=== PATIENT | female | born 1955 | race Caucasian/White ===

== ENCOUNTER 2016-07-27 11:11 | Inpatient (IN) | payer MEDICARE ==
[~2016-07-27] VITALS: Ht 154.9 cm; Wt 61.0 kg
[~2016-07-27 11:11] MED LIST: FLUT1SPR9 EACH NARE; LEVA500T PO; MAXI5O EACH EYE
[2016-07-27 11:22] VITALS: BP 161/102; PULSE 112; RESP 21; TEMP 98.8
[2016-07-27] MEDS ORDERED: SODIUM CHLOR 0.9% 1000 ML INJ 1,000 ML IV ONE ×2 (12:00)
--- NOTE | 2016-07-27 12:08 | RADRPT ---
EXAM DATE/TIME: 07/27/2016 12:01 [facility] COMPARISON: No previous studies available for comparison. INDICATIONS : Cough. MEDICAL HISTORY : None. SURGICAL HISTORY : None. ENCOUNTER: Initial ACUITY: 2 days PAIN SCORE: 0/10 LOCATION: Bilateral chest FINDINGS: A single view of the chest demonstrates the lungs to be symmetrically aerated without evidence of mas s, infiltrate or effusion. The cardiomediastinal contours are unremarkable. Osseous structures are intact. CONCLUSION: No acute pulmonary infiltrates. Talha Jaquez MD on July 27, 2016 at 12:07 Board Certified Radiologist. This report was verified electronically.
[2016-07-27 12:21] LABS: AUTOMATED NEUTROPHIL # 15.4 TH/MM3 (1.8-7.7); BASOPHIL # 0.1 TH/MM3 (0-0.2); BASOPHIL % 0.5 % (0.0-2.0); EOSINOPHIL # 0.1 TH/MM3 (0-0.4); EOSINOPHIL % 0.4 % (0.0-4.0); HEMATOCRIT 37.1 % (35.0-46.0); HEMO FLAGS DIFF FINAL; LYMPH % 5.3 % (9.0-44.0); LYMPHOCYTE # 0.9 TH/MM3 (1.0-4.8); MEAN CELL VOLUME 87.5 FL (80.0-100.0); MEAN CORPUSCULAR HEMOGLOBIN 29.1 PG (27.0-34.0); MEAN CORPUSCULAR HGB CONC 33.3 % (32.0-36.0); MONO % 4.7 % (0.0-8.0); NEUT % 89.1 % (16.0-70.0); PLATELET COUNT 323 TH/MM3 (150-450); RED BLOOD COUNT 4.24 MIL/MM3 (4.00-5.30); RED CELL DISTRIBUTION WIDTH 14.5 % (11.6-17.2); WHITE BLOOD COUNT 17.2 TH/MM3 (4.0-11.0)
[2016-07-27 12:25] VITALS: O2SAT 98
[2016-07-27 12:57] LABS: ALKALINE PHOSPHATASE 96 U/L (45-117); ALT (GPT) 12 U/L (10-53); ANION GAP 11 MEQ/L (5-15); AST (GOT) 18 U/L (15-37); BICARBONATE 26.2 MEQ/L (21.0-32.0); BLOOD UREA NITROGEN 11 MG/DL (7-18); CHLORIDE 103 MEQ/L (98-107); GLOMERULAR FILTRATION RATE 58 ML/MIN (>89); SODIUM (NA) 140 MEQ/L (136-145); TOTAL BILIRUBIN ADULT 0.4 MG/DL (0.2-1.0)
[2016-07-27 13:10] LABS: BLOOD, URINE TRACE (NEG); COMMENT (UR) CATH-CULT NOT IND; CULTURE IF INDICATED CATH CULTURE NOT IND; GLUCOSE,URINE NEG (NEG); KETONE, URINE NEG (NEG); NITRITE,URINE NEG (NEG); SQUAMOUS EPITHELIAL CELL URINE <1 /hpf (0-5); URINE COLOR LIGHT-YELLOW (YELLW/STRAW)
[2016-07-27 14:00] VITALS: BP 170/100; PULSE 110; RESP 19; O2SAT 93
[2016-07-27] MEDS ORDERED: CLINDAMYCIN INJ 600 MG in SODIUM CHLORIDE 0.9% INJ 100 ML IV ONE (14:00)
--- NOTE | 2016-07-27 14:34 | PD ---
HPI Chief Complaint: General Weakness Time Seen by Provider: 11:32 Travel History International Travel<30 days: No Contact w/Intl Traveler<30days: No Traveled to known affect area: No History of Present Illness HPI 60 year-old woman presents from [facility] for reportedly Gen. weakness. According to EMS her roommate found the patient weak, having urinated on herself. Patient states she occasionally gets "talking seizures" where she feels funny but then is able to talk and feels better. Patient has schizophrenia and is unable to provide complete history. She does state that she had an ingrown toe on her left foot but she does not get out of its been not hurting her as much. Denies any other complaints. History Past Medical History Narrative Medical From review of medication list Seizures Hypothyroidism COPD Schizophrenia Social History Alcohol Use: No Tobacco Use: Yes (PACK A DAY ) Allergies-Medications (Allergen,Severity, Reaction): Coded Allergies: Penicillin (Verified Allergy, Severe, 06/25/16) Sulfa (Verified Allergy, Intermediate, 06/25/16) Reported Meds & Prescriptions Reported Meds & Active Scripts Active Maxitrol Opth Drops (Neomycin/Polymyxin/Dexamethasone) 3.5-10,000-0.1 Mg-Units- % Susp 1 Drop EACH EYE Q4H Levaquin (Levofloxacin) 500 Mg Tab 500 Mg PO DAILY Flonase Allergy Relief Children Nasal [place] (Fluticasone Nasal [place]) 50 Mcg/ Act [place] 2 [place] EACH NARE DAILY 50 mcg/spray Review of Systems ROS Limitations: Clinical Condition Physical Exam Narrative GENERAL: Bizarre 60 year-old woman, no acute distress. SKIN: Warm and dry. HEAD: Atraumatic. Normocephalic. CARDIOVASCULAR: Regular rate and rhythm. No murmur appreciated. RESPIRATORY: No accessory muscle use. Clear to auscultation. Breath sounds equal bilaterally. GASTROINTESTINAL: Abdomen soft, non-tender, nondistended. Hepatic and splenic margins not palpable. MUSCULOSKELETAL: No obvious deformities. No edema. Left great toe with ingrown toenail with erythema redness and some purulence on the lateral aspect. NEUROLOGICAL: Awake and alert. No obvious cranial nerve deficits. Motor grossly within normal limits. Normal speech. PSYCHIATRIC: Bizarre, thoughts. Disordered. Data Data Last Documented VS Vital Signs Date Time Temp Pulse Resp B/P Pulse Ox O2 Delivery O2 Flow Rate FiO2 1/31/17 12:25 98 Nasal Cannula 2 07/27/16 11:22 98.8 112 21 161/102 Orders Electrocardiogram (07/27/16 11:48) Complete Blood Count With Diff (07/27/16 11:48) Comprehensive Metabolic Panel (07/27/16 11:48) Lactic Acid Sepsis Protocol (07/27/16 11:48) Lipase (07/27/16 11:48) Troponin I (07/27/16 11:48) Urinalysis - C+S If Indicated (07/27/16 11:48) Influenzae A/B Antigen (07/27/16 11:48) Blood Culture (07/27/16 11:48) Chest, Single Ap (07/27/16 11:48) Blood Glucose (07/27/16 11:48) Ecg Monitoring (07/27/16 11:48) Iv Access Insert/Monitor (07/27/16 11:48) Cath For Specimen (07/27/16 11:48) Oximetry (07/27/16 11:48) Oxygen Administration (07/27/16 11:48) Sodium Chlor 0.9% 1000 Ml Inj (Ns 1000 M (07/27/16 12:00) Sodium Chlor 0.9% 1000 Ml Inj (Ns 1000 M (07/27/16 12:00) Clindamycin Inj (Cleocin Inj) (07/27/16 14:00) Admit Order (Ed Use Only) (07/27/16 ) Labs Laboratory Tests Test 07/27/16 07/27/16 11:50 12:45 White Blood Count 17.2 TH/MM3 Red Blood Count 4.24 MIL/MM3 Hemoglobin 12.3 GM/DL Hematocrit 37.1 % Mean Corpuscular Volume 87.5 FL Mean Corpuscular Hemoglobin 29.1 PG Mean Corpuscular Hemoglobin 33.3 % Concent Red Cell Distribution Width 14.5 % Platelet Count 323 TH/MM3 Mean Platelet Volume 8.0 FL Neutrophils (%) (Auto) 89.1 % Lymphocytes (%) (Auto) 5.3 % Monocytes (%) (Auto) 4.7 % Eosinophils (%) (Auto) 0.4 % Basophils (%) (Auto) 0.5 % Neutrophils # (Auto) 15.4 TH/MM3 Lymphocytes # (Auto) 0.9 TH/MM3 Monocytes # (Auto) 0.8 TH/MM3 Eosinophils # (Auto) 0.1 TH/MM3 Basophils # (Auto) 0.1 TH/MM3 CBC Comment DIFF FINAL Differential Comment Sodium Level 140 MEQ/L Potassium Level 3.0 MEQ/L Chloride Level 103 MEQ/L Carbon Dioxide Level 26.2 MEQ/L Anion Gap 11 MEQ/L Blood Urea Nitrogen 11 MG/DL Creatinine 0.99 MG/DL Estimat Glomerular Filtration 58 ML/MIN Rate Random Glucose 100 MG/DL Lactic Acid Level 0.8 mmol/L Calcium Level 9.5 MG/DL Total Bilirubin 0.4 MG/DL Aspartate Amino Transf 18 U/L (AST/SGOT) Alanine Aminotransferase 12 U/L (ALT/SGPT) Alkaline Phosphatase 96 U/L Troponin I LESS THAN 0.02 NG/ML Total Protein 7.0 GM/DL Albumin 3.0 GM/DL Lipase 63 U/L Urine Color LIGHT-YELLOW Urine Turbidity CLEAR Urine pH 7.0 Urine Specific [place] 1.006 Urine Protein NEG mg/dL Urine Glucose (UA) NEG mg/dL Urine Ketones NEG mg/dL Urine Occult Blood TRACE Urine Nitrite NEG Urine Bilirubin NEG Urine Urobilinogen LESS THAN 2.0 MG/DL Urine Leukocyte Esterase NEG Urine RBC 5 /hpf Urine WBC 1 /hpf Urine Squamous Epithelial <1 /hpf Cells Microscopic Urinalysis Comment CATH-CULT NOT IND MDM Medical Decision Making Medical Screen Exam Complete: Yes Emergency Medical Condition: Yes Interpretation(s) LABS: CBC remarkable for mild leukocytosis. CMP generally unremarkable. Troponin negative Lipase normal Lactate normal Influenza negative Chest x-ray negative Differential Diagnosis Infection, seizure, adverse medication reaction, anemia, other Narrative Course Medical decision making 60 year-old woman presents from [facility] under very unclear circumstances , seems to be generally weak, possibly had a seizure, appears to have an infection with low-grade fevers tachycardia. No clear source of infection is seen other than this ingrown toenail. We'll cover her with antibiotics, IV fluids, plan on admission for observation. Diagnosis Primary Impression: Sepsis Qualified Code: A41.9 - Sepsis, due to unspecified organism Additional Impressions: Ingrown toenail Weakness Mikey Suero MD Jul 27, 2016 14:33
[2016-07-27] MEDS ORDERED: VITATAB56 PO (14:51)
[2016-07-27] MEDS ORDERED: CLOZ200T PO (14:51)
[2016-07-27] MEDS ORDERED: GABA100C4 PO (14:51)
[2016-07-27] MEDS ORDERED: KEPP10002 PO (14:51)
[2016-07-27] MEDS ORDERED: LEVO75TA3 PO (14:51)
[2016-07-27] MEDS ORDERED: SYMB160A INH (14:51)
[2016-07-27] MEDS ORDERED: CLOZ100T3 PO (14:51)
[2016-07-27] MEDS ORDERED: LACT10SO PO (14:51)
[2016-07-27] MEDS ORDERED: OMEP20TA PO (14:51)
[2016-07-27] MEDS ORDERED: BENZ1TAB PO (14:55)
[2016-07-27] MEDS ORDERED: TRIF2TAB PO (14:55)
[2016-07-27] MEDS ORDERED: COLA100C3 PO (14:59)
[2016-07-27] MEDS ORDERED: SODIUM CHLOR 0.9% 1000 ML INJ 1,000 ML IV SCH (16:34)
[2016-07-27] MEDS ORDERED: SODIUM CHLORIDE 0.9% FLUSH 5 ML FLUSH FLUSH PRN (16:45)
[2016-07-27] MEDS ORDERED: NALOXONE HCL 0.4 MG/ML AMP IV PRN (16:45)
[2016-07-27] MEDS ORDERED: SENNOSIDES 8.6 MG TAB PO PRN (16:45)
[2016-07-27] MEDS ORDERED: POTASSIUM CHLORIDE 25 MEQ EFFERVESCENT TAB PO ONE (16:45)
[2016-07-27 17:00] VITALS: BP 181/103; PULSE 105; RESP 19; O2SAT 92
--- NOTE | 2016-07-27 17:00 | HHI.HP ---
[facility] Unknown Admission Diagnosis sepsis, toe infection, weakness Diagnoses: Chief Complaint: Toe infection Travel History International Travel<30 Days: No Contact w/Intl Traveler <30 Da: No Traveled to Known Affected Are: No History of Present Illness The patient is a 60-year-old female with past medical history of schizophrenia who is presenting to the hospital from [facility]. The patient does not speak coherently all the time so a targeted history is difficult. She does admit she has had an ingrown toenail on her left foot at the big toe. She said the manager functional did come to her facility and did do something with it. She says the toe persistently bothers her. The patient has no other specific complaints. She was found to have an area of infection in her left great toe. She received a dose of clindamycin in the emergency department. She wanted IVs removed. She was having trouble taking off her gown. Review of Systems ROS Limitations: Clinical Condition, Altered Mental Status, Psychotic, Poor Historian Past Family Social History Past Medical History Seizures Hypothyroidism COPD Schizophrenia Allergies: Coded Allergies: Penicillin (Verified Allergy, Severe, 06/25/16) Sulfa (Verified Allergy, Intermediate, 06/25/16) Family History Unable to obtain. Social History Unable to obtain. Physical Exam Vital Signs Vital Signs Date Time Temp Pulse Resp B/P Pulse Ox O2 Delivery O2 Flow Rate FiO2 07/27/16 12:25 98 Nasal Cannula 2 07/27/16 12:25 98 2 07/27/16 11:42 98 Nasal Cannula 2 07/27/16 11:22 98.8 112 21 161/102 Physical Exam GENERAL: No acute distress. SKIN: Warm and dry. HEAD: Atraumatic. Normocephalic. CARDIOVASCULAR: Regular rate and rhythm. No murmur appreciated. RESPIRATORY: No accessory muscle use. Clear to auscultation. Breath sounds equal bilaterally. GASTROINTESTINAL: Abdomen soft, non-tender, nondistended. Hepatic and splenic margins not palpable. MUSCULOSKELETAL: No obvious deformities. No edema. Left great toe with ingrown toenail with erythema redness and some purulence on the lateral aspect. NEUROLOGICAL: Awake and alert. No obvious cranial nerve deficits. Motor grossly within normal limits. Normal speech. PSYCHIATRIC: Disordered speech. Laboratory Laboratory Tests Test 07/27/16 07/27/16 11:50 12:45 White Blood Count 17.2 Red Blood Count 4.24 Hemoglobin 12.3 Hematocrit 37.1 Mean Corpuscular Volume 87.5 Mean Corpuscular Hemoglobin 29.1 Mean Corpuscular Hemoglobin 33.3 Concent Red Cell Distribution Width 14.5 Platelet Count 323 Mean Platelet Volume 8.0 Neutrophils (%) (Auto) 89.1 Lymphocytes (%) (Auto) 5.3 Monocytes (%) (Auto) 4.7 Eosinophils (%) (Auto) 0.4 Basophils (%) (Auto) 0.5 Neutrophils # (Auto) 15.4 Lymphocytes # (Auto) 0.9 Monocytes # (Auto) 0.8 Eosinophils # (Auto) 0.1 Basophils # (Auto) 0.1 CBC Comment DIFF FINAL Differential Comment Sodium Level 140 Potassium Level 3.0 Chloride Level 103 Carbon Dioxide Level 26.2 Anion Gap 11 Blood Urea Nitrogen 11 Creatinine 0.99 Estimat Glomerular Filtration 58 Rate Random Glucose 100 Lactic Acid Level 0.8 Calcium Level 9.5 Total Bilirubin 0.4 Aspartate Amino Transf 18 (AST/SGOT) Alanine Aminotransferase 12 (ALT/SGPT) Alkaline Phosphatase 96 Troponin I LESS THAN 0.02 Total Protein 7.0 Albumin 3.0 Lipase 63 Urine Color LIGHT-YELLOW Urine Turbidity CLEAR Urine pH 7.0 Urine Specific [place] 1.006 Urine Protein NEG Urine Glucose (UA) NEG Urine Ketones NEG Urine Occult Blood TRACE Urine Nitrite NEG Urine Bilirubin NEG Urine Urobilinogen LESS THAN 2.0 Urine Leukocyte Esterase NEG Urine RBC 5 Urine WBC 1 Urine Squamous Epithelial <1 Cells Microscopic Urinalysis Comment CATH-CULT NOT IND Date/Time Procedure Status Source Growth 07/27/16 12:45 Influenza Types A,B Antigen (YASMINE) - Final Complete Nasal Washing NEGATIVE FOR FLU A AND B ANTIGEN.... 07/27/16 11:55 Aerobic Blood Culture Received Blood Peripheral Pending 07/27/16 11:55 Anaerobic Blood Culture Received Blood Peripheral Pending Result Diagram: 07/27/16 1150 07/27/16 1150 Imaging Last Impressions Chest X-Ray 07/27/16 1148 Signed Impressions: Service Date/Time: Wednesday, July 27, 2016 12:01 - CONCLUSION: No acute pulmonary infiltrates. Talha Jaquez MD Assessment and Plan Assessment and Plan Sepsis S/t toe infection/ cellulitis. The pt had an ingrown toenail in her left toe. S/ p Clindamycin. - continue clindamycin. - wound and blood cultures. - IVFs. - podiatry consult if needed. Weakness There was concern for generalized weakness. - treatment as above. - PT/ OT. Hypokalemia Possibly secondary to decreased by mouth intake. - Replete and monitor. Hypertension May be exacerbated by pain. - Vasotec as needed. - pain control. Schizophrenia The patient has pressured speech and is difficult to understand. - Continue psych medication regimen. - Psych consult if needed. PPx: Lovenox. Discussed Condition With Dr. Suero, pt, nurse. Physician Certification 2 Midnight Certification Type: Admission for Inpatient Services Order for Inpatient Services The services are ordered in accordance with Medicare regulations or non- Medicare payer requirements, as applicable. In the case of services not specified as inpatient-only, they are appropriately provided as inpatient services in accordance with the 2-midnight benchmark. Estimated LOS (days): 2 days is the estimated time the patient will need to remain in the hospital, assuming treatment plan goals are met and no additional complications. Post-Hospital Plan: SNF Jose Miguel Burrell DO Jul 27, 2016 17:00
[2016-07-27] MEDS: GABAPENTIN 100 MG CAP PO SCH (17:23)
[2016-07-27] MEDS: DOCUSATE SODIUM 100 MG CAP PO SCH (17:23)
[2016-07-27] MEDS: NS + KCL 40 MEQ INJ 1,000 ML IV SCH (17:24)
[2016-07-27] MEDS: ENALAPRILAT 1.25 MG/ML VIAL IV PUSH PRN (17:24)
[2016-07-27] MEDS: ENOXAPARIN SODIUM 30 MG/0.3 ML SYRINGE SQ SCH (17:24)
[2016-07-27 19:00] VITALS: BP 154/88; PULSE 96; RESP 18; O2SAT 95
[2016-07-27 20:31] VITALS: BP 147/79; PULSE 98; RESP 17; TEMP 101.8; O2SAT 94
[2016-07-27] MEDS: ACETAMINOPHEN 325 MG TAB PO PRN (20:32)
[2016-07-27] MEDS ORDERED: TRIFLUOPERAZINE 2 MG PO SCH (21:00)
[2016-07-27] MEDS ORDERED: DOCUSATE SODIUM 100 MG CAP PO SCH (21:00)
[2016-07-27] MEDS: SODIUM CHLORIDE 0.9% FLUSH 5 ML FLUSH FLUSH SCH (21:00)
[2016-07-27] MEDS: levETIRAcetam 500 MG TAB PO SCH (23:55)
[2016-07-27] MEDS: BUDESONIDE-FORMOTEROL 160/4.5 MCG INHALER INH SCH (23:55)
[2016-07-27] MEDS: BENZTROPINE MESYLATE 1 MG TAB PO SCH (23:56)
[2016-07-27] MEDS: cloZAPine 100 MG TAB PO SCH (23:56)
[2016-07-27] MEDS: LACTULOSE SYRUP 20 GM/30 ML CUP PO SCH (23:56)
[2016-07-27] MEDS: CLINDAMYCIN INJ 900 MG in SODIUM CHLORIDE 0.9% INJ 100 ML IV SCH (23:57)
[2016-07-28 00:11] VITALS: BP 118/73; PULSE 91; RESP 17; TEMP 97.9; O2SAT 93
[2016-07-28] MEDS: NS + KCL 40 MEQ INJ 1,000 ML IV SCH (03:00)
[2016-07-28 04:46] VITALS: BP 133/87; PULSE 105; RESP 17; TEMP 98.2; O2SAT 93
[2016-07-28] MEDS: DOCUSATE SODIUM 100 MG CAP PO SCH ×2 (06:09→16:17)
[2016-07-28] MEDS: CLINDAMYCIN INJ 900 MG in SODIUM CHLORIDE 0.9% INJ 100 ML IV SCH ×2 (06:09→12:08)
[2016-07-28] MEDS: LEVOTHYROXINE SODIUM 75 MCG TAB PO SCH (06:09)
[2016-07-28 08:40] LABS: AUTOMATED NEUTROPHIL # 11.2 TH/MM3 (1.8-7.7); BASOPHIL # 0.1 TH/MM3 (0-0.2); BASOPHIL % 0.6 % (0.0-2.0); EOSINOPHIL # 0.1 TH/MM3 (0-0.4); EOSINOPHIL % 0.8 % (0.0-4.0); HEMATOCRIT 31.1 % (35.0-46.0); HEMO FLAGS DIFF FINAL; LYMPH % 8.3 % (9.0-44.0); LYMPHOCYTE # 1.1 TH/MM3 (1.0-4.8); MEAN CELL VOLUME 88.7 FL (80.0-100.0); MEAN CORPUSCULAR HGB CONC 32.7 % (32.0-36.0); MONO % 8.2 % (0.0-8.0); NEUT % 82.1 % (16.0-70.0); PLATELET COUNT 244 TH/MM3 (150-450); RED BLOOD COUNT 3.51 MIL/MM3 (4.00-5.30); RED CELL DISTRIBUTION WIDTH 14.6 % (11.6-17.2); WHITE BLOOD COUNT 13.7 TH/MM3 (4.0-11.0)
[2016-07-28 08:50] VITALS: BP 134/86; PULSE 89; RESP 18; TEMP 97.3; O2SAT 90
[2016-07-28 08:55] LABS: BICARBONATE 24.5 MEQ/L (21.0-32.0)
[2016-07-28] MEDS: SODIUM CHLORIDE 0.9% FLUSH 5 ML FLUSH FLUSH SCH ×2 (09:00→20:16)
[2016-07-28 09:04] LABS: POTASSIUM 2.8 MEQ/L (3.5-5.1)
[2016-07-28] MEDS: BENZTROPINE MESYLATE 1 MG TAB PO SCH ×2 (09:10→20:18)
[2016-07-28] MEDS: PANTOPRAZOLE SOD 20 MG DELAYED RELEASE TAB PO SCH (09:10)
[2016-07-28] MEDS: GABAPENTIN 100 MG CAP PO SCH ×3 (09:10→16:17)
[2016-07-28] MEDS: BUDESONIDE-FORMOTEROL 160/4.5 MCG INHALER INH SCH ×2 (09:10→20:21)
[2016-07-28] MEDS: levETIRAcetam 500 MG TAB PO SCH ×2 (09:10→20:18)
[2016-07-28] MEDS: cloZAPine 100 MG TAB PO SCH ×2 (09:10→20:18)
[2016-07-28 13:21] VITALS: BP 103/63; PULSE 90; RESP 18; TEMP 97.6; O2SAT 90
[2016-07-28] MEDS ORDERED: POTASSIUM CHLORIDE 25 MEQ EFFERVESCENT TAB PO ONE (14:15)
--- NOTE | 2016-07-28 14:34 | HHI.PR ---
Subjective Remarks The patient says she was brought to the hospital because she was weak and couldn 't really walk around. She thinks she might of had a seizure. She is describing shortness of breath. She denies any chest pain. She denies a headache. Objective Vitals Vital Signs Date Time Temp Pulse Resp B/P Pulse Ox O2 Delivery O2 Flow Rate FiO2 07/28/16 13:21 97.6 90 18 103/63 90 07/28/16 08:50 97.3 89 18 134/86 90 07/28/16 04:46 98.2 105 17 133/87 93 07/28/16 00:11 97.9 91 17 118/73 93 07/27/16 20:31 101.8 98 17 147/79 94 07/27/16 19:00 96 18 154/88 95 Room Air 07/27/16 17:00 105 19 181/103 92 Room Air I/O 07/27/16 07/27/16 07/27/16 07/28/16 07/28/16 07/28/16 07:00 15:00 23:00 07:00 15:00 23:00 Intake Total 240 ml 120 ml Output Total 300 ml Balance -300 ml 240 ml 120 ml Intake Oral 240 ml 120 ml Output Urine Total 300 ml # Voids 1 2 # Bowel Movements 2 Result Diagram: 07/28/16 0735 07/28/16 0735 Imaging Last Impressions Chest X-Ray 07/27/16 1148 Signed Impressions: Service Date/Time: Wednesday, July 27, 2016 12:01 - CONCLUSION: No acute pulmonary infiltrates. Talha Jaquez MD Objective Remarks GENERAL: No acute distress. SKIN: Warm and sweaty. HEAD: Atraumatic. Normocephalic. CARDIOVASCULAR: Regular rate and rhythm. Grade 1 systolic murmur appreciated. RESPIRATORY: Crackles at the bases. GASTROINTESTINAL: Abdomen soft, non-tender, nondistended. Hepatic and splenic margins not palpable. MUSCULOSKELETAL: No obvious deformities. No edema. Left great toe with ingrown toenail with erythema redness and some purulence on the lateral aspect. NEUROLOGICAL: Awake and alert. No obvious cranial nerve deficits. Motor grossly within normal limits. Normal speech. PSYCHIATRIC: Slightly agitated. Medications and IVs Current Medications Medications (Trade) Dose Ordered Sig/Matt Route Start Time Stop Time Status Last Admin (Cogentin) 1 mg BID PO 07/27/16 21:00 07/28/16 09:10 (Symbicort 160-4.5 Inh) 2 puff BID INH 07/27/16 21:00 07/28/16 09:10 (Clozaril) 150 mg DAILY PO 07/28/16 09:00 07/28/16 09:10 (Clozaril) 400 mg HS PO 07/27/16 21:00 07/27/16 23:56 (Neurontin) 100 mg TID PO 07/27/16 18:00 07/28/16 11:56 (Lactulose Liq) 30 ml HS PO 07/27/16 21:00 07/27/16 23:56 (Keppra) 1,000 mg BID PO 07/27/16 21:00 07/28/16 09:10 (Synthroid) 75 mcg DAILY@06 PO 07/28/16 06:00 07/28/16 06:09 (Protonix) 20 mg DAILY PO 07/28/16 09:00 07/28/16 09:10 Patient Own Medication PT OWN MED: TRIFLUOPERAZINE 2MG PO BID BID PO 07/27/16 21:00 Hold (NS Flush) 2 ml UNSCH PRN FLUSH 07/27/16 16:45 (NS Flush) 2 ml BID FLUSH 07/27/16 21:00 (Tylenol) 650 mg Q4H PRN PO 07/27/16 16:45 07/27/16 20:32 (Colace) 100 mg Q12H PO 07/27/16 18:00 07/28/16 06:09 (Senokot) 17.2 mg Q12H PRN PO 07/27/16 16:45 (Tylenol) 650 mg Q6H PRN PO 07/27/16 16:45 (Narcan Inj) 0.4 mg UNSCH PRN IV 07/27/16 16:45 Enoxaparin Sodium 30 mg 30 mg Q24H SQ 07/27/16 18:00 07/27/16 17:24 (Cleocin Inj/NS Inj) 106 ml @ 212 mls/hr Q8H IV 07/27/16 22:00 07/28/16 12:08 (Vasotec Inj) 1.25 mg Q6H PRN IV PUSH 07/27/16 17:00 07/27/16 17:24 (K-Lyte Cl Eff) 50 meq ONCE ONCE PO 07/28/16 14:15 07/28/16 14:16 UNV A/P Assessment and Plan Sepsis S/t toe infection/ cellulitis. The pt had an ingrown toenail in her left toe. The patient also has symptoms concerning for aspiration pneumonia as she has history of seizure, her mental status fluctuates and she has crackles on exam. - continue clindamycin. - wound, sputum and blood cultures. - CXR PA/Lateral pending. - swallow eval with speech therapy. - nebs as needed. Weakness There was concern for generalized weakness, likely s/t sepsis. - treatment as above. - PT/ OT. - check a TSH level. Hypokalemia Possibly secondary to decreased by mouth intake. - Replete and monitor. Hypertension May be exacerbated by pain. Well controlled 07/28. - Vasotec as needed. - pain control. Schizophrenia The patient has pressured speech and is difficult to understand. - Continue psych medication regimen. - Psych consult if needed. PPx: Lovenox. Discharge Planning Awaiting clinical improvement. Jose Miguel Burrell DO Jul 28, 2016 14:33
--- NOTE | 2016-07-28 15:33 | EKG ---
Date Performed: 07/27/2016 Time Performed: 12:13:59 PTAGE: 60 years EKG: SINUS TACHYCARDIA BORDERLINE LEFT AXIS DEVIATION NONSPECIFIC T-WAVE ABNORMALITY ABNORMAL RH YTHM ECG NO PREVIOUS TRACING DOCTOR: Latia Lyman Interpretating Date/Time 07/28/2016 15:32:03
[2016-07-28] MEDS ORDERED: POTASSIUM CHLORIDE INJ 40 MEQ in SODIUM CHLOR 0.45% 1000 ML INJ 1,000 ML IV SCH (16:00)
[2016-07-28] MEDS: ENOXAPARIN SODIUM 30 MG/0.3 ML SYRINGE SQ SCH (16:17)
--- NOTE | 2016-07-28 16:46 | RADRPT ---
EXAM DATE/TIME: 07/28/2016 16:34 [facility] COMPARISON: No previous studies available for comparison. INDICATIONS : Cough and shortness of breath. Evaluate for pneumonia. MEDICAL HISTORY : None. SURGICAL HISTORY : None. ENCOUNTER: Initial ACUITY: 1 day PAIN SCORE: 0/10 LOCATION: chest FINDINGS: PA and lateral views of the chest demonstrate the lungs to be symmetrically aerated without evidence of mass, infiltrate or effusion. The cardiomediastinal contours are unremarkable. Osseous structure s are intact. CONCLUSION: No acute disease. Maury Blank MD FACR on July 28, 2016 at 16:45 Board Certified Radiologist. This report was verified electronically.
[2016-07-28 17:03] VITALS: BP 130/89; PULSE 75; RESP 18; TEMP 98.4; O2SAT 95
[2016-07-28 20:00] VITALS: BP 132/88; PULSE 76; RESP 18; TEMP 97.4; O2SAT 95
[2016-07-28] MEDS: LACTULOSE SYRUP 20 GM/30 ML CUP PO SCH (20:18)
[2016-07-28 22:18] LABS: BICARBONATE 26.4 MEQ/L (21.0-32.0); POTASSIUM 3.4 MEQ/L (3.5-5.1)
[2016-07-28] MEDS: CLINDAMYCIN INJ 600 MG in SODIUM CHLORIDE 0.9% INJ 100 ML IV SCH (22:28)
[2016-07-29] VITALS (7 sets, daily range): BP systolic 130–180; BP diastolic 78–102; PULSE 73–86; RESP 17–20; TEMP 96–98.6; O2SAT 94–99
[2016-07-29] MEDS: DOCUSATE SODIUM 100 MG CAP PO SCH ×2 (04:22→17:39)
[2016-07-29] MEDS: LEVOTHYROXINE SODIUM 75 MCG TAB PO SCH (04:22)
[2016-07-29] MEDS: CLINDAMYCIN INJ 600 MG in SODIUM CHLORIDE 0.9% INJ 100 ML IV SCH ×3 (04:22→22:35)
--- NOTE | 2016-07-29 05:13 | MG ---
cc: DIOMEDES ALEXANDER Lab No: Date: 07/28/2016 Age: Sex: F Race: EEG 17-155 IDENTIFYING DATA A 60-year-old Hyperventilation was not performed. INDICATIONS Not speaking well. Possible seizure. Schizophrenia. MEDICATIONS 1. Keppra. 2. Neurontin. 3. Clozapine. 4. Cogentin. FINDINGS Diffuse 7 Hz slowing is noted. The recording overall is synchronous and symmetric. On the transverse montage at epoch 26 the patient does appear have phase reversing sharp waves seen over the left temporal head region and some sharply contoured theta waves are noted bitemporally, a little bit more prominent on the left than the right. In the left central head region also some sharply contoured waves seen, epoch 38. These are much better appreciated on the transverse than the bipolar montage. Patient noted be clinically asleep, and while these could be sleep variants, they looked a bit atypical for that. The patient is then noticed to have eyes open. Bifrontal muscle artifact is seen. Photic stimulation was performed without significant posterior driving. IMPRESSION Some bitemporal sharply contoured waves are seen, worse on the left than the right with some phase reversing of the left. This looks atypical and may be epileptiform. Clinical correlation is needed and a repeat EEG with sleep deprivation is recommended. MD LINWOOD Vasquez/PINA /11:47 PM /5:02 AM
[2016-07-29] MEDS: BENZTROPINE MESYLATE 1 MG TAB PO SCH ×2 (09:00→22:33)
[2016-07-29] MEDS: PANTOPRAZOLE SOD 20 MG DELAYED RELEASE TAB PO SCH (09:23)
[2016-07-29] MEDS: cloZAPine 100 MG TAB PO SCH ×2 (09:23→22:34)
[2016-07-29] MEDS: levETIRAcetam 500 MG TAB PO SCH ×2 (09:23→22:33)
[2016-07-29] MEDS: GABAPENTIN 100 MG CAP PO SCH ×3 (09:23→17:39)
[2016-07-29] MEDS: ACETAMINOPHEN 325 MG TAB PO PRN ×3 (09:24→22:32)
[2016-07-29] MEDS: BUDESONIDE-FORMOTEROL 160/4.5 MCG INHALER INH SCH ×2 (09:32→22:34)
[2016-07-29] MEDS: SODIUM CHLORIDE 0.9% FLUSH 5 ML FLUSH FLUSH SCH ×2 (09:32→22:34)
[2016-07-29] MEDS ORDERED: LORazepam 2 MG/ML VIAL IV PUSH PRN (09:45)
[2016-07-29 12:30] LABS: HEMATOCRIT 33.8 % (35.0-46.0); MEAN CELL VOLUME 88.9 FL (80.0-100.0); MEAN CORPUSCULAR HEMOGLOBIN 29.6 PG (27.0-34.0); MEAN CORPUSCULAR HGB CONC 33.3 % (32.0-36.0); PLATELET COUNT 262 TH/MM3 (150-450); RED CELL DISTRIBUTION WIDTH 14.7 % (11.6-17.2); REVIEW FLAG FINAL; WHITE BLOOD COUNT 8.8 TH/MM3 (4.0-11.0)
[2016-07-29] MEDS ORDERED: levETIRAcetam 500 MG TAB PO ONE (13:00)
[2016-07-29 13:01] LABS: BICARBONATE 29.6 MEQ/L (21.0-32.0); POTASSIUM 3.4 MEQ/L (3.5-5.1)
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
[2016-07-29] MEDS ORDERED: POTASSIUM CHLORIDE 25 MEQ EFFERVESCENT TAB PO ONE (15:00)
--- NOTE | 2016-07-29 15:23 | HHI.PR ---
Subjective Remarks The patient is more conversant today. She says she saw a neurologist earlier she may have been short with him. She says that she doesn't want be on so many psych medications. She does not think she has a psychiatrist at this time. She says she enjoys staying at [facility] (Formerly [facility]). Objective Vitals Vital Signs Date Time Temp Pulse Resp B/P Pulse Ox O2 Delivery O2 Flow Rate FiO2 07/29/16 12:55 96.7 85 18 175/86 96 07/29/16 08:12 97.8 79 18 158/97 94 07/29/16 04:00 96.0 84 18 160/100 94 07/29/16 00:00 97.0 86 20 130/78 99 07/28/16 20:00 97.4 76 18 132/88 95 07/28/16 17:03 98.4 75 18 130/89 95 I/O 07/28/16 07/28/16 07/28/16 07/29/16 07/29/16 07/29/16 07:00 15:00 23:00 07:00 15:00 23:00 Intake Total 120 ml 480 ml 480 ml Balance 120 ml 480 ml 480 ml Intake Oral 120 ml 480 ml 480 ml # Voids 2 2 4 3 # Bowel Movements 2 2 1 1 Result Diagram: 07/29/16 1112 07/29/16 1112 Imaging Last Impressions Chest X-Ray 07/28/16 0000 Signed Impressions: Service Date/Time: Thursday, July 28, 2016 16:34 - CONCLUSION: No acute disease. Maury Blank MD FACR Objective Remarks GENERAL: No acute distress. SKIN: Warm and sweaty. HEAD: Atraumatic. Normocephalic. CARDIOVASCULAR: Regular rate and rhythm. Grade 1 systolic murmur appreciated. RESPIRATORY: CTAB. No W/R/R. GASTROINTESTINAL: Abdomen soft, non-tender, nondistended. Hepatic and splenic margins not palpable. MUSCULOSKELETAL: No obvious deformities. No edema. Left great toe with ingrown toenail. NEUROLOGICAL: Awake and alert. No obvious cranial nerve deficits. Motor grossly within normal limits. Normal speech. PSYCHIATRIC: Slightly flattened affect. Medications and IVs Current Medications Medications (Trade) Dose Ordered Sig/Matt Route Start Time Stop Time Status Last Admin (Cogentin) 1 mg BID PO 07/27/16 21:00 07/28/16 20:18 (Symbicort 160-4.5 Inh) 2 puff BID INH 07/27/16 21:00 07/29/16 09:32 (Clozaril) 150 mg DAILY PO 07/28/16 09:00 07/29/16 09:23 (Clozaril) 400 mg HS PO 07/27/16 21:00 07/28/16 20:18 (Neurontin) 100 mg TID PO 07/27/16 18:00 07/29/16 13:28 (Lactulose Liq) 30 ml HS PO 07/27/16 21:00 07/28/16 20:18 (Keppra) 1,000 mg BID PO 07/27/16 21:00 07/29/16 09:23 (Synthroid) 75 mcg DAILY@06 PO 07/28/16 06:00 07/29/16 04:22 (Protonix) 20 mg DAILY PO 07/28/16 09:00 07/29/16 09:23 Patient Own Medication PT OWN MED: TRIFLUOPERAZINE 2MG PO BID BID PO 07/27/16 21:00 Hold (NS Flush) 2 ml UNSCH PRN FLUSH 07/27/16 16:45 (NS Flush) 2 ml BID FLUSH 07/27/16 21:00 07/29/16 09:32 (Tylenol) 650 mg Q4H PRN PO 07/27/16 16:45 07/29/16 09:24 (Colace) 100 mg Q12H PO 07/27/16 18:00 07/29/16 04:22 (Senokot) 17.2 mg Q12H PRN PO 07/27/16 16:45 (Tylenol) 650 mg Q6H PRN PO 07/27/16 16:45 (Narcan Inj) 0.4 mg UNSCH PRN IV 07/27/16 16:45 (Lovenox Inj) 30 mg Q24H SQ 07/27/16 18:00 07/28/16 16:17 Enalaprilat 1.25 mg 1.25 mg Q6H PRN IV PUSH 07/27/16 17:00 07/27/16 17:24 (Cleocin Inj/NS Inj) 104 ml @ 212 mls/hr Q8H IV 07/28/16 22:00 07/29/16 13:27 Lorazepam 2 mg 2 mg Q2H PRN IV PUSH 07/29/16 09:45 (Potassium Phosphate Inj/NS 250 ml Inj) 260 ml @ 43.333 mls/ hr ONCE ONCE IV 07/29/16 16:00 07/29/16 21:59 A/P Assessment and Plan Sepsis S/t toe infection/ cellulitis. The pt had an ingrown toenail in her left toe. The patient also has symptoms concerning for aspiration pneumonia as she has history of seizure. CXR unremarkable. - continue clindamycin. - follow wound, sputum and blood cultures. - swallow eval with speech therapy. - nebs as needed. Seizure disorder EEG with evidence of epileptiform activity. Appreciate neurology consult. - Keppra per neurology. - seizure precautions. - Ativan if needed. Weakness There was concern for generalized weakness, likely s/t sepsis. - treatment as above. - PT/ OT. - TSH is low. Will add on a free T3/ T4. Hypokalemia/ Hypophosphatemia Possibly secondary to decreased by mouth intake. - Replete and monitor. Hypertension May be exacerbated by pain. Elevated 2/2. - Vasotec as needed. - pain control. - add amlodipine 5 mg daily. Schizophrenia The patient had pressured speech and was difficult to understand. Improved. - Continue psych medication regimen. - Psych consult if needed. PPx: Lovenox. Discharge Planning Anticipate discharge to [facility] (Former[facility]) in 1-2 days. Jose Miguel Burrell DO Jul 29, 2016 15:23
[2016-07-29] MEDS: amLODIPine BESYLATE 5 MG TAB PO SCH (15:48)
[2016-07-29] MEDS ORDERED: POTASSIUM PHOSPHATE INJ 30 MMOL in SODIUM CHLOR 0.9% 250 ML INJ 250 ML IV ONE (16:00)
[2016-07-29] MEDS ORDERED: PHENOL 1.4% SOLN 180 ML BTL OROPHARYNG ONE (16:00)
[2016-07-29] MEDS: ENALAPRILAT 1.25 MG/ML VIAL IV PUSH PRN (16:50)
[2016-07-29 17:13] LABS: FREE T3 1.47 PG/ML (2.18-3.98); FREE T4 1.22 NG/DL (0.76-1.46)
[2016-07-29] MEDS: ENOXAPARIN SODIUM 30 MG/0.3 ML SYRINGE SQ SCH (17:39)
[2016-07-29] MEDS: LACTULOSE SYRUP 20 GM/30 ML CUP PO SCH (22:33)
[2016-07-30] VITALS: BP 140/76; PULSE 75; RESP 18; TEMP 97.7; O2SAT 95
[2016-07-30 04:40] VITALS: BP 135/75; PULSE 67; RESP 18; TEMP 98.8; O2SAT 96
[2016-07-30] MEDS: LEVOTHYROXINE SODIUM 75 MCG TAB PO SCH (06:08)
[2016-07-30] MEDS: CLINDAMYCIN INJ 600 MG in SODIUM CHLORIDE 0.9% INJ 100 ML IV SCH (06:08)
[2016-07-30] MEDS: DOCUSATE SODIUM 100 MG CAP PO SCH (06:08)
[2016-07-30 07:31] LABS: BICARBONATE 26.5 MEQ/L (21.0-32.0); MAGNESIUM 1.9 MG/DL (1.5-2.5); POTASSIUM 3.5 MEQ/L (3.5-5.1)
[2016-07-30 08:05] VITALS: BP 164/93; PULSE 72; RESP 18; TEMP 98.7; O2SAT 95
--- NOTE | 2016-07-30 09:27 | HHI.PR ---
Review/Management Daily Summary wake and more pleasant today no seizures reported spoke with her RN continue kefernando and office neuro f/u in 2 weeks Subjective Subjective Comments No acute events reported No headache No chest pain No dyspnea Active Medications Current Medications Medications (Trade) Dose Ordered Sig/Matt Route Start Time Stop Time Status Last Admin (Cogentin) 1 mg BID PO 07/27/16 21:00 07/29/16 22:33 (Symbicort 160-4.5 Inh) 2 puff BID INH 07/27/16 21:00 07/29/16 22:34 (Clozaril) 150 mg DAILY PO 07/28/16 09:00 07/29/16 09:23 (Clozaril) 400 mg HS PO 07/27/16 21:00 07/29/16 22:34 (Neurontin) 100 mg TID PO 07/27/16 18:00 07/29/16 17:39 (Lactulose Liq) 30 ml HS PO 07/27/16 21:00 07/29/16 22:33 (Keppra) 1,000 mg BID PO 07/27/16 21:00 07/29/16 22:33 (Synthroid) 75 mcg DAILY@06 PO 07/28/16 06:00 07/30/16 06:08 (Protonix) 20 mg DAILY PO 07/28/16 09:00 07/29/16 09:23 Patient Own Medication PT OWN MED: TRIFLUOPERAZINE 2MG PO BID BID PO 07/27/16 21:00 Hold (NS Flush) 2 ml UNSCH PRN FLUSH 07/27/16 16:45 (NS Flush) 2 ml BID FLUSH 07/27/16 21:00 07/29/16 22:34 (Tylenol) 650 mg Q4H PRN PO 07/27/16 16:45 07/29/16 09:24 (Colace) 100 mg Q12H PO 07/27/16 18:00 07/30/16 06:08 (Senokot) 17.2 mg Q12H PRN PO 07/27/16 16:45 (Tylenol) 650 mg Q6H PRN PO 07/27/16 16:45 07/29/16 22:32 (Narcan Inj) 0.4 mg UNSCH PRN IV 07/27/16 16:45 (Lovenox Inj) 30 mg Q24H SQ 07/27/16 18:00 07/29/16 17:39 Enalaprilat 1.25 mg 1.25 mg Q6H PRN IV PUSH 07/27/16 17:00 07/29/16 16:50 (Cleocin Inj/NS Inj) 104 ml @ 212 mls/hr Q8H IV 07/28/16 22:00 07/30/16 06:08 (Ativan Inj) 2 mg Q2H PRN IV PUSH 07/29/16 09:45 (Norvasc) 5 mg DAILY PO 07/29/16 16:00 07/29/16 15:48 Allergies Allergies Coded Allergies Penicillin (Verified Allergy, Severe, 06/25/16) Sulfa (Verified Allergy, Intermediate, 06/25/16) Exam I&O / VS 07/29/16 07/29/16 07/30/16 15:00 23:00 07:00 Intake Total 480 ml 1250 ml 800 ml Balance 480 ml 1250 ml 800 ml Intake Oral 480 ml 1000 ml 700 ml IV Total 250 ml 100 ml # Voids 3 2 4 # Bowel Movements 1 0 0 Vital Signs Date Time Temp Pulse Resp B/P Pulse Ox O2 Delivery O2 Flow Rate FiO2 07/30/16 08:05 98.7 72 18 164/93 95 07/30/16 04:40 98.8 67 18 135/75 96 07/30/16 00:00 97.7 75 18 140/76 95 07/29/16 21:30 98.6 73 17 152/80 95 07/29/16 16:57 160/102 07/29/16 16:26 96.6 78 18 180/100 95 07/29/16 12:55 96.7 85 18 175/86 96 Objective Micro and Labs Laboratory Tests Test 07/29/16 07/30/16 11:12 06:36 White Blood Count 8.8 Red Blood Count 3.80 Hemoglobin 11.2 Hematocrit 33.8 Mean Corpuscular Volume 88.9 Mean Corpuscular Hemoglobin 29.6 Mean Corpuscular Hemoglobin 33.3 Concent Red Cell Distribution Width 14.7 Platelet Count 262 Mean Platelet Volume 8.0 Sodium Level 145 145 Potassium Level 3.4 3.5 Chloride Level 109 111 Carbon Dioxide Level 29.6 26.5 Anion Gap 6 8 Blood Urea Nitrogen 5 9 Creatinine 0.70 0.66 Estimat Glomerular Filtration 86 92 Rate Random Glucose 90 87 Calcium Level 8.6 8.4 Phosphorus Level 1.9 3.4 Magnesium Level 2.0 1.9 Free Thyroxine 1.22 Free Triiodothyronine (T3) 1.47 pg/dL Date/Time Procedure Status Source Growth 07/27/16 18:00 Gram Stain - Final Complete Wound Toe 07/27/16 18:00 Wound Culture - Final Complete Group A Beta Strep 07/27/16 12:45 Influenza Types A,B Antigen (YASMINE) - Final Complete Nasal Washing NEGATIVE FOR FLU A AND B ANTIGEN.... 07/27/16 11:55 Aerobic Blood Culture - Preliminary Resulted Blood Peripheral NO GROWTH IN 2 DAYS 07/27/16 11:55 Anaerobic Blood Culture - Preliminary Resulted Blood Peripheral NO GROWTH IN 2 DAYS Florentin Caicedo MD Jul 30, 2016 09:27
[2016-07-30] MEDS: BUDESONIDE-FORMOTEROL 160/4.5 MCG INHALER INH SCH (09:40)
[2016-07-30] MEDS: cloZAPine 100 MG TAB PO SCH (09:41)
[2016-07-30] MEDS: BENZTROPINE MESYLATE 1 MG TAB PO SCH (09:41)
[2016-07-30] MEDS: GABAPENTIN 100 MG CAP PO SCH (09:42)
[2016-07-30] MEDS: PANTOPRAZOLE SOD 20 MG DELAYED RELEASE TAB PO SCH (09:42)
[2016-07-30] MEDS: amLODIPine BESYLATE 5 MG TAB PO SCH (09:42)
[2016-07-30] MEDS: levETIRAcetam 500 MG TAB PO SCH (09:42)
[2016-07-30] MEDS: SODIUM CHLORIDE 0.9% FLUSH 5 ML FLUSH FLUSH SCH (09:43)
[2016-07-30] MEDS: ACETAMINOPHEN 325 MG TAB PO PRN (09:46)
[2016-07-30] MEDS ORDERED: DOXY100C PO (11:54)
[2016-07-30] MEDS ORDERED: POTA-163 PO (11:54)
[2016-07-30] MEDS ORDERED: AMLO5 PO (11:54)
--- NOTE | 2016-07-30 11:56 | HHI.DCPOC ---
Discharge Care Plan Diagnosis: (1) Ingrown toenail (2) Weakness (3) Seizure disorder (4) Schizophrenia Goals to Promote Your Health * To prevent worsening of your condition and complications * To maintain your health at the optimal level Directions to Meet Your Goals Take your medications as prescribed Follow your dietary instruction Follow activity as directed Keep your appointments as scheduled Take your immunizations and boosters as scheduled If your symptoms worsen call your PCP, if no PCP go to Urgent Care Center or Emergency Room Smoking is Dangerous to Your Health. Avoid second hand smoke Call the 24-hour hour crisis hotline for domestic abuse at Jose Miguel Burrell DO Jul 30, 2016 11:56
[2016-07-30] MEDS ORDERED: POTASSIUM CHLORIDE 25 MEQ EFFERVESCENT TAB PO ONE (12:00)
--- NOTE | 2016-07-30 12:01 | HHI.DS ---
Discharge Summary Admission Date Jul 27, 2016 at 14:26 Discharge Date: Jul 30, 2016 Admitting Diagnosis sepsis, toe infection, weakness (1) Seizure disorder ICD Code: G40.909 Diagnosis: Principal (2) Schizophrenia ICD Code: F20.9 (3) Ingrown toenail ICD Code: L60.0 Procedures None. Brief History - From Admission The patient is a 60-year-old female with past medical history of schizophrenia who is presenting to the hospital from [facility]. The patient does not speak coherently all the time so a targeted history is difficult. She does admit she has had an ingrown toenail on her left foot at the big toe. She said the buyer internship did come to her facility and did do something with it. She says the toe persistently bothers her. The patient has no other specific complaints. She was found to have an area of infection in her left great toe. She received a dose of clindamycin in the emergency department. She wanted IVs removed. She was having trouble taking off her gown. CBC/BMP: 07/29/16 1112 07/30/16 0636 Significant Findings Laboratory Tests Test 07/27/16 07/28/16 07/28/16 07/29/16 12:45 07:35 20:55 11:12 Urine Occult Blood TRACE (NEG) Urine RBC 5 /hpf (0-3) White Blood Count 13.7 TH/MM3 (4.0-11.0) Red Blood Count 3.51 MIL/MM3 3.80 MIL/MM3 (4.00-5.30) (4.00-5.30) Hemoglobin 10.2 GM/DL 11.2 GM/DL (11.6-15.3) (11.6-15.3) Hematocrit 31.1 % 33.8 % (35.0-46.0) (35.0-46.0) Neutrophils (%) (Auto) 82.1 % (16.0-70.0) Lymphocytes (%) (Auto) 8.3 % (9.0-44.0) Monocytes (%) (Auto) 8.2 % (0.0-8.0) Neutrophils # (Auto) 11.2 TH/MM3 (1.8-7.7) Monocytes # (Auto) 1.1 TH/MM3 (0-0.9) Potassium Level 2.8 MEQ/L 3.4 MEQ/L 3.4 MEQ/L (3.5-5.1) (3.5-5.1) (3.5-5.1) Chloride Level 109 MEQ/L 113 MEQ/L 109 MEQ/L (98-107) (98-107) (98-107) Estimat Glomerular Filtration 70 ML/MIN (>89) 68 ML/MIN (>89) 86 ML/MIN (>89) Rate Calcium Level 8.2 MG/DL 7.9 MG/DL (8.5-10.1) (8.5-10.1) Sodium Level 146 MEQ/L (136-145) Random Glucose 108 MG/DL (74-106) Thyroid Stimulating Hormone 0.297 uIU/ML 3rd Gen (0.358-3.740) Blood Urea Nitrogen 5 MG/DL (7-18) Phosphorus Level 1.9 MG/DL (2.5-4.9) Free Triiodothyronine (T3) 1.47 PG/ML pg/dL (2.18-3.98) Test 07/30/16 06:36 Chloride Level 111 MEQ/L (98-107) Calcium Level 8.4 MG/DL (8.5-10.1) Imaging Last Impressions Chest X-Ray 07/28/16 0000 Signed Impressions: Service Date/Time: Thursday, July 28, 2016 16:34 - CONCLUSION: No acute disease. Maury Blank MD FACR PE at Discharge GENERAL: No acute distress. SKIN: Warm and sweaty. HEAD: Atraumatic. Normocephalic. CARDIOVASCULAR: Regular rate and rhythm. Grade 1 systolic murmur appreciated. RESPIRATORY: CTAB. No W/R/R. GASTROINTESTINAL: Abdomen soft, non-tender, nondistended. Hepatic and splenic margins not palpable. MUSCULOSKELETAL: No obvious deformities. No edema. Left great toe with ingrown toenail. NEUROLOGICAL: Awake and alert. No obvious cranial nerve deficits. Motor grossly within normal limits. Normal speech. PSYCHIATRIC: Slightly flattened affect. Pt update on day of discharge The patient feels well and is looking forward to going home. She had no acute complaints. Discussed with nursing and case management. Hospital Course Toe infection/ cellulitis The pt had an ingrown toenail in her left great toe. CXR was unremarkable. She was started on IV clindamycin. Wound culture grew group A beta strep. Blood cultures with no growth. The pt will complete a course of PO doxycycline and will follow up with podiatry as an outpt. Seizure disorder EEG with evidence of epileptiform activity. Neurology was consulted. The pt was continued on Keppra per neurology. She was placed on seizure precautions and Ativan was available if needed. The pt will follow up with neurology in two weeks. Hypokalemia/ Hypophosphatemia Hypophosphatemia corrected with IV K-Phos. The pt will be discharged on potassium supplementation. Hypertension Amlodipine was started and will be increased to 10 mg daily. The pt will follow up with her PCP. She received Vasotec as needed. Schizophrenia The patient had pressured speech and was difficult to understand. Improved. She was continued on her psych medication regimen. She will follow up with psychiatry as an outpt. Pt Condition on Discharge: Stable Discharge Disposition: [facility] Discharge Time: > 30 minutes Discharge Instructions DIET: Follow Instructions for: Heart Healthy Diet Speech Therapy-Diet Recommends: Regular Activities you can perform: Weight Bearing as Agnieszka Follow up Referrals: Neurology - 2 Weeks with Florentin Caicedo MD PCP Follow-up - 1 Week Podiatry - 2 Weeks Psychiatry Adult - 1 Week New Medications: Doxycycline Hyclate (Doxycycline Hyclate) 100 Mg Cap 100 MG PO BID Infection #10 Ref 0 CAP Potassium Chloride ER (Potassium Chloride ER) 20 Meq Tab 20 MEQ PO DAILY Electrolyte Replacement #30 Ref 0 TAB Amlodipine (Norvasc) 5 Mg Tab 10 MG PO DAILY Blood Pressure Management #60 TAB Continued Medications: Benztropine (Benztropine) 1 Mg Tab 1 MG PO BID #60 Ref 0 TAB Budesonide-Formoterol Inh (Symbicort Inh) 160-4.5 Mcg/Act Aero 2 PUFF INH BID #1 Ref 0 INHALER Cholecalciferol (Vitamin D-400) 400 Unit Tab 400 UNITS PO DAILY Nutritional Supplement #1 Ref 0 BOTTLE Clozapine (Clozapine) 100 Mg Tab 150 MG PO DAILY Schizophrenia Ref 0 TAB Clozapine (Clozapine) 200 Mg Tab 400 MG PO HS Schizophrenia Ref 0 TAB Docusate Sodium (Colace) 100 Mg Cap 100 MG PO BID Constipation #60 Ref 0 CAP Fluticasone Nasal [place] (Flonase Allergy Relief Children Nasal [place]) 50 Mcg/ Act [place] 2 SPRAY EACH NARE DAILY 50 mcg/spray Allergy Management #1 BOTTLE Gabapentin (Gabapentin) 100 Mg Cap 100 MG PO TID #90 Ref 0 CAP Lactulose Liq (Lactulose Liq) 10 Gm/15 Ml Soln 30 ML PO HS Ref 0 ML Levetiracetam (Keppra) 1,000 Mg Tab 1000 MG PO BID Control Seizures #60 Ref 0 TAB Levothyroxine (Levothyroxine) 75 Mcg Tab 75 MCG PO DAILY Thyroid #30 Ref 0 TAB Omeprazole (Omeprazole) 20 Mg Tab 20 MG PO DAILY #30 Ref 0 TAB Trifluoperazine (Trifluoperazine) 2 Mg Tab 2 MG PO BID #60 Ref 0 TAB Jose Miguel Burrell DO Jul 30, 2016 12:00
[2016-07-30 12:11] VITALS: BP 160/95; PULSE 81; RESP 18; TEMP 96.5; O2SAT 95
== END 2016-07-30 12:59 | DRG 872 ==
LOC: NEPA 11:11 → NEDA 14:26 → N05A 20:14
PROVIDERS: ADMIT Hospitalist; ATTEND Hospitalist
DX: A41.9 Sepsis, unspecified organism (principal); E83.39 Other disorders of phosphorus metabolism; I10 Essential (primary) hypertension; R01.1 Cardiac murmur, unspecified; J44.9 Chronic obstructive pulmonary disease, unspecified; L03.032 Cellulitis of left toe; L60.0 Ingrowing nail; E87.6 Hypokalemia; F20.9 Schizophrenia, unspecified; E03.9 Hypothyroidism, unspecified; G40.909 Epilepsy, unspecified, not intractable, without status epilepticus; F17.210 Nicotine dependence, cigarettes, uncomplicated; R53.1 Weakness
CPT/HCPCS: 71010; 71020; 80048; 80053; 81001; 83605; 83690; 83735; 84100; 84439; 84443; 84481; 84484; 85025; 85027; 86403; 87040; 87070; 87205; 87804; 93005; 95819; 96361; 96365; J1650; J3480; J7030; J7050; P9612

== ENCOUNTER 2017-05-30 23:38 | Inpatient (IN) | payer MEDICARE ==
[~2017-05-30] VITALS: Ht 165.1 cm; Wt 66.5 kg
[~2017-05-30 23:38] MED LIST changes: +AMLO5 PO; +BENZ1TAB PO; +CLOZ100T3 PO; +CLOZ200T PO; +COLA100C3 PO; +DOXY100C PO; +GABA100C4 PO; +KEPP10002 PO; +LACT10SO PO; -LEVA500T PO; +LEVO75TA3 PO; -MAXI5O EACH EYE; +OMEP20TA93 PO; +POTA-163 PO; +SYMB160A INH; +TRIF2TAB PO; +VITATAB56 PO
[2017-05-30 23:54] VITALS: BP 121/69; PULSE 89; RESP 22; O2SAT 93
[2017-05-30 23:58] VITALS: TEMP 101.1; O2SAT 100
--- NOTE | 2017-05-30 23:59 | PD ---
HPI Chief Complaint: seizure Time Seen by Provider: 23:54 Travel History International Travel<30 days: No Contact w/Intl Traveler<30days: No Traveled to known affect area: No History of Present Illness HPI 61-year-old female with history of seizure disorder, sent in from her [place] [facility] after being found on the floor of her room appearing to be postictal. The patient was incontinent of urine. Upon arrival to the emergency department the patient is sleeping with sonorous respirations. She is easily arousable to painful stimuli and withdrawals, and moves all of her extremities, however she is not responsive to verbal stimuli and does not provide any history. O2 saturation is 86% on room air and the patient has coarse breath sounds bilaterally. There are no obvious signs of trauma. PFSH Past Medical History Arthritis: Yes Asthma: No Anxiety: Yes Depression: Yes Heart Rhythm Problems: No Cancer: No Cardiovascular Problems: Yes High Cholesterol: No Chest Pain: No Congestive Heart Failure: No COPD: No Cerebrovascular Accident: No Endocrine: No Genitourinary: No Immune Disorder: No Musculoskeletal: Yes Neurologic: Yes Psychiatric: Yes Reproductive: No Respiratory: No Migraines: No Seizures: Yes Sleep Apnea: No Past Surgical History Abdominal Surgery: Yes (Gallbladder removed) AICD: No Arteriovenous Shunt: No Cardiac Surgery: No Ear Surgery: No Endocrine Surgery: No Eye Surgery: No Genitourinary Surgery: No Gynecologic Surgery: Yes (Hysterectomy) Hysterectomy: Yes Insulin Pump: No Joint Replacement: No Oral Surgery: No Pacemaker: No Thoracic Surgery: No Social History Alcohol Use: No Tobacco Use: Yes (PACK A DAY ) Substance Use: Yes (Marijuana) Allergies-Medications (Allergen,Severity, Reaction): Coded Allergies: penicillin G (Unverified Allergy, Severe, 02/08/17) Sulfa (Sulfonamide Antibiotics) (Unverified Allergy, Intermediate, 02/08/17 ) Reported Meds & Prescriptions Reported Meds & Active Scripts Active Doxycycline Hyclate 100 Mg Cap 100 Mg PO BID Potassium Chloride ER (Potassium Chloride) 20 Meq Tab 20 Meq PO DAILY Norvasc (Amlodipine Besylate) 5 Mg Tab 10 Mg PO DAILY Flonase Allergy Relief Children Nasal Raymond (Fluticasone Nasal Raymond) 50 Mcg/ Act Raymond 2 Raymond EACH NARE DAILY 50 mcg/spray Reported Colace (Docusate Sodium) 100 Mg Cap 100 Mg PO BID Trifluoperazine (Trifluoperazine HCl) 2 Mg Tab 2 Mg PO BID Benztropine (Benztropine Mesylate) 1 Mg Tab 1 Mg PO BID Symbicort Inh (Budesonide/Formoterol Fumarate) 160-4.5 Mcg/Act Aero 2 Puff INH BID Omeprazole 20 Mg Tab 20 Mg PO DAILY Levothyroxine (Levothyroxine Sodium) 75 Mcg Tab 75 Mcg PO DAILY Keppra (Levetiracetam) 1,000 Mg Tab 1,000 Mg PO BID Lactulose Liq (Lactulose) 10 Gm/15 Ml Soln 30 Ml PO HS Gabapentin 100 Mg Cap 100 Mg PO TID Clozapine 200 Mg Tab 400 Mg PO HS Clozapine 100 Mg Tab 150 Mg PO DAILY Vitamin D-400 (Cholecalciferol) 400 Unit Tab 400 Units PO DAILY Review of Systems Except as stated in HPI: all other systems reviewed are Neg Physical Exam Narrative GENERAL: Well-developed, thin, sleeping, arouses to painful stimuli SKIN: Focused skin assessment warm/dry. No rash. HEAD: Atraumatic. Normocephalic. EYES: Pupils equal, round, 3 mm, reactive to light. No scleral icterus. No injection or drainage. ENT: No nasal bleeding or discharge. Mucous membranes pink and dry. NECK: Trachea midline. No JVD. CARDIOVASCULAR: Regular rate and rhythm. No murmur appreciated. RESPIRATORY: No accessory muscle use. Coarse breath sounds bilaterally. Breath sounds equal bilaterally. GASTROINTESTINAL: Abdomen soft, non-tender, nondistended. MUSCULOSKELETAL: No obvious deformities. No clubbing. No cyanosis. No edema. NEUROLOGICAL: Appears post ictal. Arouses to painful stimuli. Moves all extremities to painful stimuli. PSYCHIATRIC: Unable to assess Data Data Last Documented VS Vital Signs Date Time Temp Pulse Resp B/P (MAP) Pulse Ox O2 Delivery O2 Flow Rate FiO2 05/31/17 00:50 88 16 106/61 (76) 100 Venturi Mask 7.00 05/30/17 23:58 101.1 Orders Orders Complete Blood Count With Diff (05/30/17 23:54) Ct Brain W/O Iv Contrast(Rout) (05/30/17 ) Blood Glucose (05/30/17 23:54) Ecg Monitoring (05/30/17 23:54) Iv Access Insert/Monitor (05/30/17 23:54) Oximetry (05/30/17 23:54) Comprehensive Metabolic Panel (05/30/17 23:54) Sodium Chloride 0.9% Flush (Ns Flush) (05/31/17 00:00) Ua Includes Microscopic (05/30/17 23:54) Cath For Specimen (05/30/17 23:54) Ct Cerv Spine W/O Contrast (05/30/17 ) Chest, Single Ap (05/30/17 ) Blood Culture (05/31/17 00:01) Lactic Acid Sepsis Protocol (05/31/17 00:01) Sodium Chlor 0.9% 1000 Ml Inj (Ns 1000 M (05/31/17 00:15) Acetaminophen Supp (Tylenol Supp) (05/31/17 00:15) Clindamycin 900 Mg Premix (Cleocin 900 M (05/31/17 01:30) Labs Laboratory Tests Test 05/31/17 00:15 05/31/17 00:20 White Blood Count 10.0 TH/MM3 Red Blood Count 4.04 MIL/MM3 Hemoglobin 12.4 GM/DL Hematocrit 37.5 % Mean Corpuscular Volume 92.7 FL Mean Corpuscular Hemoglobin 30.8 PG Mean Corpuscular Hemoglobin Concent 33.2 % Red Cell Distribution Width 13.9 % Platelet Count 200 TH/MM3 Mean Platelet Volume 8.4 FL Neutrophils (%) (Auto) 87.8 % Lymphocytes (%) (Auto) 3.9 % Monocytes (%) (Auto) 8.0 % Eosinophils (%) (Auto) 0.0 % Basophils (%) (Auto) 0.3 % Neutrophils # (Auto) 8.8 TH/MM3 Lymphocytes # (Auto) 0.4 TH/MM3 Monocytes # (Auto) 0.8 TH/MM3 Eosinophils # (Auto) 0.0 TH/MM3 Basophils # (Auto) 0.0 TH/MM3 CBC Comment DIFF FINAL Differential Comment Blood Urea Nitrogen 17 MG/DL Creatinine 0.88 MG/DL Random Glucose 143 MG/DL Total Protein 6.3 GM/DL Albumin 2.6 GM/DL Calcium Level 7.7 MG/DL Alkaline Phosphatase 84 U/L Aspartate Amino Transf (AST/SGOT) 26 U/L Alanine Aminotransferase (ALT/SGPT) 17 U/L Total Bilirubin 0.2 MG/DL Sodium Level 142 MEQ/L Potassium Level 3.2 MEQ/L Chloride Level 111 MEQ/L Carbon Dioxide Level 22.3 MEQ/L Anion Gap 9 MEQ/L Estimat Glomerular Filtration Rate 66 ML/MIN Lactic Acid Level 1.3 mmol/L [facility] Medical Decision Making Medical Screen Exam Complete: Yes Emergency Medical Condition: Yes Differential Diagnosis Breakthrough seizure, sepsis, pneumonia, aspiration pneumonia, UTI, metabolic abnormality Narrative Course Initial vital signs show heart rate 89, blood pressure 121/69, pulse ox 86% on room air, rectal temp of 101.1F. Patient was started on 100% nonrebreather with improvement in O2 saturation to 100%. She was then switched to a Venturi mask at 7 L and her sats were 100%. CBC: WBC 10, hemoglobin 12.4, hematocrit 37.5, platelets 200, neutrophils 88%. CMP is remarkable for potassium 3.2, random glucose 143, otherwise unremarkable. Lactic acid is 1.3. Chest x-ray shows no acute disease. CT head: No acute hemorrhage or mass effect. Evidence of acute sinusitis involving the sphenoid sinus. CT cervical spine: Negative trauma CT. Since the patient has arrived in the emergency department her mental status has significantly improved. Although she is sleeping she is easily arousable to voice. She still requires Ventimask to maintain her O2 saturation in the high 90s. When this is removed her oxygen saturation drops to 86%. She is in no respiratory distress, however she does have some coarse breath sounds. She may have aspirated during a possible seizure that was unwitnessed. She did present appearing to be in a postictal state. There is no nuchal rigidity on exam. I do not suspect meningitis or encephalitis. She does have evidence of sinusitis on her CT head which may have lowered her seizure threshold. She'll be started on clindamycin and admitted for further treatment and evaluation. Case discussed with hospitalist Dr. Loza who will admit the patient to her service. Diagnosis Primary Impression: Breakthrough seizure Additional Impressions: Hypoxia Acute sinusitis Qualified Codes: J01.30 - Acute sphenoidal sinusitis, unspecified Admitting Information Admitting Physician Requests: Admit Julien Veras MD May 30, 2017 23:59
[2017-05-31] VITALS (16 sets, daily range): BP systolic 96–132; BP diastolic 54–86; PULSE 70–109; RESP 16–33; TEMP 97.5–101; O2SAT 90–100
[2017-05-31] MEDS ORDERED: SODIUM CHLORIDE 0.9% FLUSH 10 ML FLUSH IVF PRN
[2017-05-31] MEDS ORDERED: ACETAMINOPHEN 650 MG SUPP RECTAL ONE (00:15)
[2017-05-31] MEDS ORDERED: SODIUM CHLOR 0.9% 1000 ML INJ 1,000 ML IV ONE (00:15)
[2017-05-31 00:39] LABS: AUTOMATED NEUTROPHIL # 8.8 TH/MM3 (1.8-7.7); BASOPHIL % 0.3 % (0.0-2.0); HEMATOCRIT 37.5 % (35.0-46.0); HEMO FLAGS DIFF FINAL; LYMPH % 3.9 % (9.0-44.0); LYMPHOCYTE # 0.4 TH/MM3 (1.0-4.8); MEAN CELL VOLUME 92.7 FL (80.0-100.0); MEAN CORPUSCULAR HEMOGLOBIN 30.8 PG (27.0-34.0); MEAN CORPUSCULAR HGB CONC 33.2 % (32.0-36.0); NEUT % 87.8 % (16.0-70.0); PLATELET COUNT 200 TH/MM3 (150-450); RED BLOOD COUNT 4.04 MIL/MM3 (4.00-5.30); RED CELL DISTRIBUTION WIDTH 13.9 % (11.6-17.2)
--- NOTE | 2017-05-31 00:46 | RADRPT ---
EXAM DATE/TIME: 05/31/2017 00:18 [place] COMPARISON: CHEST SINGLE AP, July 27, 2016, 12:01. INDICATIONS : Shortness of breath. MEDICAL HISTORY : None. SURGICAL HISTORY : None. ENCOUNTER: Initial ACUITY: 1 day PAIN SCORE: 0/10 LOCATION: Bilateral chest FINDINGS: A single view of the chest demonstrates the lungs to be symmetrically aerated without evidence of mas s, infiltrate or effusion. The cardiomediastinal contours are unremarkable. Osseous structures are intact. CONCLUSION: No acute disease. Jose Miguel Watson MD on May 31, 2017 at 0:45 Board Certified Radiologist. This report was verified electronically.
--- NOTE | 2017-05-31 00:48 | RADRPT ---
EXAM DATE/TIME: 05/31/2017 00:29 [facility] COMPARISON: No previous studies available for comparison. INDICATIONS : Trauma; fall, seizure. RADIATION DOSE: 32.10 CTDIvol (mGy) MEDICAL HISTORY : Cardiovascular disease. Seizures. TBI SURGICAL HISTORY : Hysterectomy. ENCOUNTER: Initial ACUITY: 1 day PAIN SCALE: Non-responsive LOCATION: cranial TECHNIQUE: Multiple contiguous axial images were obtained of the head. Using automated exposure control and adj ustment of the mA and/or kV according to patient size, radiation dose was kept as low as reasonably a chievable to obtain optimal diagnostic quality images. DICOM format image data is available electro nically for review and comparison. FINDINGS: CEREBRUM: The ventricles are normal for age. No evidence of midline shift, mass lesion, hemorrhage or acute in farction. No extra-axial fluid collections are seen. POSTERIOR FOSSA: The cerebellum and brainstem are intact. The 4th ventricle is midline. The cerebellopontine angle i s unremarkable. EXTRACRANIAL: The visualized portion of the orbits is intact. Significant mucosal thickening is noted in the left s phenoid sinus with air-fluid level. SKULL: The calvaria is intact. No evidence of skull fracture. CONCLUSION: 1. No acute hemorrhage or mass effect. 2. Evidence of acute sinusitis involving the sphenoid sinus. Jose Miguel Watson MD on May 31, 2017 at 0:45 Board Certified Radiologist. This report was verified electronically.
--- NOTE | 2017-05-31 00:56 | RADRPT ---
EXAM DATE/TIME: 05/31/2017 00:29 [facility] COMPARISON: No previous studies available for comparison. INDICATIONS : Trauma; fall, seizure. RADIATION DOSE: 12.97 CTDIvol (mGy) MEDICAL HISTORY : Cardiovascular disease. Seizures. TBI SURGICAL HISTORY : Hysterectomy. ENCOUNTER: Initial ACUITY: 1 day PAIN SCALE: Non-responsive LOCATION: Bilateral neck TECHNIQUE: Volumetric scanning of the cervical spine was performed. Multiplanar reconstructions in the sagittal, coronal and oblique axial planes were performed. Using automated exposure control and adjustment o f the mA and/or kV according to patient size, radiation dose was kept as low as reasonably achievable to obtain optimal diagnostic quality images. DICOM format image data is available electronically f or review and comparison. FINDINGS: The sagittal reconstructions demonstrate normal alignment and normal prevertebral soft tissues. The d ens is intact and there is a normal atlantoaxial relationship. Degenerative disc changes are present at the C5-6 level with disc space narrowing and anterior spurring. The axial images demonstrate that the vertebral bodies and posterior elements are intact. The soft ti ssues are within normal limits. There is no evidence of acute fracture or malalignment. No there are degenerative changes involving the facet joints are CONCLUSION: Negative trauma CT. Jose Miguel Watson MD on May 31, 2017 at 0:53 Board Certified Radiologist. This report was verified electronically.
[2017-05-31 00:58] LABS: ALKALINE PHOSPHATASE 84 U/L (45-117); TOTAL BILIRUBIN ADULT 0.2 MG/DL (0.2-1.0)
[2017-05-31 01:05] LABS: ALT (GPT) 17 U/L (10-53); ANION GAP 9 MEQ/L (5-15); AST (GOT) 26 U/L (15-37); BICARBONATE 22.3 MEQ/L (21.0-32.0); BLOOD UREA NITROGEN 17 MG/DL (7-18); CHLORIDE 111 MEQ/L (98-107); GLOMERULAR FILTRATION RATE 66 ML/MIN (>89); POTASSIUM 3.2 MEQ/L (3.5-5.1); SODIUM (NA) 142 MEQ/L (136-145)
[2017-05-31] MEDS ORDERED: LORazepam 2 MG/ML VIAL IV PUSH PRN (01:30)
[2017-05-31] MEDS ORDERED: NALOXONE HCL 0.4 MG/ML AMP IV PUSH PRN (01:30)
[2017-05-31] MEDS ORDERED: SODIUM CHLORIDE 0.9% FLUSH 10 ML FLUSH IV FLUSH PRN (01:30)
[2017-05-31] MEDS ORDERED: CLINDAMYCIN 900 MG/DEX PREMIX 50 ML IV ONE (01:30)
[2017-05-31] MEDS ORDERED: CLINDAMYCIN INJ 900 MG in SODIUM CHLORIDE 0.9% INJ 50 ML IV ONE (02:00)
[2017-05-31 02:45] LABS: BLOOD, URINE SMALL (NEG); GLUCOSE,URINE NEG (NEG); KETONE, URINE 10 mg/dL (NEG); MUCUS URINE FEW /lpf (OCC); NITRITE,URINE NEG (NEG); PH, URINE 5.5 (5.0-8.5); URINE COLOR YELLOW (YELLW/STRAW)
--- NOTE | 2017-05-31 02:49 | HHI.HP ---
HPI Service [facility] Primary Care Physician Unknown Admission Diagnosis breakthrough seizure, hypoxia, acute sinusitis Diagnoses: Travel History International Travel<30 Days: No Contact w/Intl Traveler <30 Da: No Traveled to Known Affected Are: No History of Present Illness History from ER communication, and review of medical records. Patient herself is not given any history at all. She is mostly slightly pain although easily arousable to verbal stimuli. She is moving around in her bed and trying to pull off the blood pressure cuff/oxygen at times. Per ER notes, patient was brought in by [facility] for evaluation after fall and possible seizure. Patient was found postictal at [facility]. She was incontinent of urine. She was sleeping mostly upon initial arrival to ER. O2 sat were 86% on room air. Upon my arrival, patient is noncommunicative verbally but is moving around. She is on Ventimask 35% FiO2 saturating at 96%. History is limited. Review of medical records reveals the patient has history of schizophrenia and seizure disorder. She was found to have rectal temperature of 101. Review of Systems ROS Limitations: Combative, Poor Historian Past Family Social History Past Medical History Seizures Hypothyroidism COPD Schizophrenia Past Surgical History CHOLECYSTECTOMY hysterectomy Reported Medications pt's med rec reviewed- Allergies: Coded Allergies: penicillin G (Unverified Allergy, Severe, 02/08/17) Sulfa (Sulfonamide Antibiotics) (Unverified Allergy, Intermediate, 02/08/17 ) Family History Unknown. Social History Unknown. Physical Exam Vital Signs Vital Signs Date Time Temp Pulse Resp B/P (MAP) Pulse Ox O2 Delivery O2 Flow Rate FiO2 05/31/17 00:50 88 16 106/61 (76) 100 Venturi Mask 7.00 05/30/17 23:58 101.1 100 Non-Rebreather 13.00 05/30/17 23:54 89 22 121/69 (86) 93 Physical Exam GENERAL: This is a well-nourished, well-developed patient, sleeping mostly though arousable to verbal stimuli, not verbally communicative, not following commands SKIN: No rashes, ecchymoses or lesions. Cool and dry. HEAD: Atraumatic. Normocephalic. No temporal or scalp tenderness. EYES: No scleral icterus. No injection or drainage. ENT: Nose without bleeding, purulent drainage or septal hematoma. Airway patent. NECK: Trachea midline. No JVD . Supple, nontender, no meningeal signs. CARDIOVASCULAR: Regular rate and rhythm without murmurs, gallops, or rubs. RESPIRATORY: Clear to auscultation. Breath sounds equal bilaterally. No wheezes , rales, or rhonchi. GASTROINTESTINAL: Abdomen soft, non-tender, nondistended. No guarding. MUSCULOSKELETAL: Extremities without clubbing, cyanosis, or edema. No calf tenderness. NEUROLOGICAL: Awake and alert. Motor and sensory grossly within normal limits. Normal speech. Laboratory Laboratory Tests Test 05/31/17 00:15 05/31/17 00:20 05/31/17 02:20 White Blood Count 10.0 Red Blood Count 4.04 Hemoglobin 12.4 Hematocrit 37.5 Mean Corpuscular Volume 92.7 Mean Corpuscular Hemoglobin 30.8 Mean Corpuscular Hemoglobin Concent 33.2 Red Cell Distribution Width 13.9 Platelet Count 200 Mean Platelet Volume 8.4 Neutrophils (%) (Auto) 87.8 Lymphocytes (%) (Auto) 3.9 Monocytes (%) (Auto) 8.0 Eosinophils (%) (Auto) 0.0 Basophils (%) (Auto) 0.3 Neutrophils # (Auto) 8.8 Lymphocytes # (Auto) 0.4 Monocytes # (Auto) 0.8 Eosinophils # (Auto) 0.0 Basophils # (Auto) 0.0 CBC Comment DIFF FINAL Differential Comment Blood Urea Nitrogen 17 Creatinine 0.88 Random Glucose 143 Total Protein 6.3 Albumin 2.6 Calcium Level 7.7 Alkaline Phosphatase 84 Aspartate Amino Transf (AST/SGOT) 26 Alanine Aminotransferase (ALT/SGPT) 17 Total Bilirubin 0.2 Sodium Level 142 Potassium Level 3.2 Chloride Level 111 Carbon Dioxide Level 22.3 Anion Gap 9 Estimat Glomerular Filtration Rate 66 Lactic Acid Level 1.3 Urine Color YELLOW Urine Turbidity CLEAR Urine pH 5.5 Urine Specific Mcconnell 1.021 Urine Protein 30 Urine Glucose (UA) NEG Urine Ketones 10 Urine Occult Blood SMALL Urine Nitrite NEG Urine Bilirubin NEG Urine Urobilinogen LESS THAN 2.0 Urine Leukocyte Esterase NEG Urine RBC 6 Urine WBC 2 Urine Mucus FEW Date/Time Source Procedure Growth Status 05/31/17 00:20 Blood Peripheral Aerobic Blood Culture Pending Received 05/31/17 00:20 Blood Peripheral Anaerobic Blood Culture Pending Received Result Diagram: 05/31/17 0015 05/31/17 0015 Imaging Last [address] 05/30/17 0000 Signed Impressions: Service Date/Time: Wednesday, May 31, 2017 00:29 - CONCLUSION: 1. No acute hemorrhage or mass effect. 2. Evidence of acute sinusitis involving the sphenoid sinus. Jose Miguel Watson MD Chest X-Ray 05/30/17 0000 Signed Impressions: Service Date/Time: Wednesday, May 31, 2017 00:18 - CONCLUSION: No acute disease. Jose Miguel Watson MD Cervical Spine CT 05/30/17 Signed Impressions: Service Date/Time: Wednesday, May 31, 2017 00:29 - CONCLUSION: Negative trauma CT. Jose Miguel Watson MD Caprini VTE Risk Assessment Caprini VTE Risk Assessment: Mod/High Risk (score >= 2) Caprini Risk Assessment Model Point Value = 1 Point Value = 2 Point Value = 3 Point Value = 5 Age 41-60 Minor surgery BMI > 25 kg/m2 Swollen legs Varicose veins or History of unexplained or recurrent spontaneous Oral contraceptives or hormone replacement Sepsis (< 1 month) Serious lung disease, including pneumonia (< 1 month) Abnormal pulmonary function Acute myocardial infarction Congestive heart failure (< 1 month) History of inflammatory bowel disease Medical patient at bed rest Age 61-74 Arthroscopic surgery Major open surgery (> 45 min) Laparoscopic surgery (> 45 min) Malignancy Confined to bed (> 72 hours) Immobilizing plaster cast Central venous access Age >= 75 History of VTE Family history of VTE Factor V Leiden Prothrombin [id number] Lupus anticoagulant Anticardiolipin antibodies Elevated serum homocysteine Heparin-induced thrombocytopenia Other congenital or acquired thrombophilia Stroke (< 1 month) Elective arthroplasty Hip, pelvis, or leg fracture Acute spinal cord injury (< 1 month) Prophylaxis Regimen Total Risk Factor Score Risk Level Prophylaxis Regimen 0-1 Low Early ambulation 2 Moderate Order ONE of the following: *Sequential Compression Device (SCD) *Heparin 5000 units SQ BID 3-4 Higher Order ONE of the following medications: *Heparin 5000 units SQ TID *Enoxaparin/Lovenox 40 mg SQ daily (WT < 150 kg, CrCl > 30 mL/min) *Enoxaparin/Lovenox 30 mg SQ daily (WT < 150 kg, CrCl > 10-29 mL/min) *Enoxaparin/Lovenox 30 mg SQ BID (WT < 150 kg, CrCl > 30 mL/min) AND/OR *Sequential Compression Device (SCD) 5 or more Highest Order ONE of the following medications: *Heparin 5000 units SQ TID (Preferred with Epidurals) *Enoxaparin/Lovenox 40 mg SQ daily (WT < 150 kg, CrCl > 30 mL/min) *Enoxaparin/Lovenox 30 mg SQ daily (WT < 150 kg, CrCl > 10-29 mL/min) *Enoxaparin/Lovenox 30 mg SQ BID (WT < 150 kg, CrCl > 30 mL/min) AND *Sequential Compression Device (SCD) Assessment and Plan Assessment and Plan Impression; Altered mental status likely secondary to postictal state. Fever 101. Likely from sinusitis. Doubt this is meningitis based on exam and history. Patient has no neck rigidity. Leukocytosis with left shift Possible aspiration Breakthrough seizures Plan: Seizure precautions. Ativan 1 mg IV every 15 minutes when necessary for seizures. We'll follow blood culture results. UA/urine cultures. Head CT negative. Clindamycin 900 mg IV every 6 hours both for sinusitis and possible aspiration. Again, per examination and history, highly doubt this is meningitis. Patient has urinary incontinence, postictal state. eeg in am neuro consult Resume long-term meds. DVT prophylaxis with Lovenox. Physician Certification Order for Inpatient Services The services are ordered in accordance with Medicare regulations or non- Medicare payer requirements, as applicable. In the case of services not specified as inpatient-only, they are appropriately provided as inpatient services in accordance with the 2-midnight benchmark. days is the estimated time the patient will need to remain in the hospital, assuming treatment plan goals are met and no additional complications. Jaylyn Loza MD May 31, 2017 02:49
[2017-05-31] MEDS ORDERED: levETIRAcetam INJ 100 ML IV ONE ×2 (03:45→22:00)
[2017-05-31] MEDS ORDERED: DOCU100C15 PO (03:51)
[2017-05-31 05:37] LABS: AUTOMATED NEUTROPHIL # 9.6 TH/MM3 (1.8-7.7); BASOPHIL % 0.2 % (0.0-2.0); HEMATOCRIT 36.6 % (35.0-46.0); HEMO FLAGS DIFF FINAL; LYMPH % 3.4 % (9.0-44.0); LYMPHOCYTE # 0.4 TH/MM3 (1.0-4.8); MEAN CELL VOLUME 93.7 FL (80.0-100.0); MEAN CORPUSCULAR HEMOGLOBIN 31.6 PG (27.0-34.0); MEAN CORPUSCULAR HGB CONC 33.7 % (32.0-36.0); MONO % 6.3 % (0.0-8.0); NEUT % 90.1 % (16.0-70.0); PLATELET COUNT 197 TH/MM3 (150-450); RED BLOOD COUNT 3.91 MIL/MM3 (4.00-5.30); WHITE BLOOD COUNT 10.6 TH/MM3 (4.0-11.0)
[2017-05-31 05:46] LABS: INTERNATIONAL NORMALIZED RATIO 1.2 RATIO; PROTHROMBIN TIME - PATIENT 11.8 SEC (9.8-11.6)
[2017-05-31 06:15] LABS: BICARBONATE 24.2 MEQ/L (21.0-32.0); POTASSIUM 3.5 MEQ/L (3.5-5.1)
[2017-05-31 06:40] LABS: CALCIUM-PROTEIN CORRECTED 7.5 MG/DL (8.5-10.1)
[2017-05-31] MEDS ORDERED: LORazepam 2 MG/ML VIAL IV PRN (09:00)
[2017-05-31] MEDS ORDERED: ENOXAPARIN SODIUM 40 MG/0.4 ML SYRINGE SQ SCH (09:00)
[2017-05-31] MEDS: SODIUM CHLORIDE 0.9% FLUSH 10 ML FLUSH IV FLUSH SCH ×2 (09:56→20:50)
[2017-05-31] MEDS: levETIRAcetam 500 MG TAB PO SCH ×2 (09:56→20:52)
[2017-05-31] MEDS: FAMOTIDINE 20 MG TAB PO SCH ×2 (09:56→20:52)
--- NOTE | 2017-05-31 10:18 | HHI.PR ---
Subjective Remarks Patient is still postictal. DW RN, she is very agitated and restless in the bed. Objective Vitals Vital Signs Date Time Temp Pulse Resp B/P (MAP) Pulse Ox O2 Delivery O2 Flow Rate FiO2 05/31/17 09:36 94 Nasal Cannula 1.00 05/31/17 06:00 97 Nasal Cannula 2.00 05/31/17 06:00 100 20 127/58 (81) 98 05/31/17 06:00 100 05/31/17 05:45 101 05/31/17 05:45 96 Nasal Cannula 2.00 05/31/17 05:45 97.5 101 20 132/86 (101) 96 05/31/17 05:29 05/31/17 02:59 70 16 96/54 (68) 99 Nasal Cannula 2.00 05/31/17 01:00 95 Venturi Mask 50 05/31/17 00:50 88 16 106/61 (76) 100 Venturi Mask 7.00 05/30/17 23:58 101.1 100 Non-Rebreather 13.00 05/30/17 23:54 89 22 121/69 (86) 93 I/O 05/30/17 05/30/17 05/30/17 05/31/17 05/31/17 05/31/17 07:00 15:00 23:00 07:00 15:00 23:00 Intake Total 1156 ml Balance 1156 ml Intake IV Total 1156 ml # Voids 3 Result Diagram: 05/31/17 0428 05/31/17 0428 Objective Remarks GENERAL: Patient is confused, agitated, in restraints. Does not follow commands. CARDIOVASCULAR: Normal rate and regular rhythm without murmurs, gallops, or rubs. RESPIRATORY: Some upper airway coarse sounds. Otherwise Breath sounds equal and clear to auscultation bilaterally. GASTROINTESTINAL: Abdomen soft, non-tender, non-distended. Normal active bowel sounds MUSCULOSKELETAL: Extremities without cyanosis, or edema. NEURO: Confused. Move all extremities spontaneously. Does not follow commands. PSYCH: Agitated. A/P Problem List: (1) Breakthrough seizure ICD Code: G40.919 - Epilepsy, unspecified, intractable, without status epilepticus Status: Acute (2) Schizophrenia ICD Code: F20.9 - Schizophrenia, unspecified Status: Acute Assessment and Plan 61 Y/O F admitted with breakthrough seizure, sinusitis, hypoxemia 2/2 possible aspiration. Breakthrough seizure, Altered mental status likely secondary to postictal state. Schizophrenia - Patient is still very agitated and uncooperative, interfering her care even after multiple doses of Ativan. - We'll give a dose of Haldol until we can resume her oral antipsychotics - Neurology consulted. Fever 101 on presentation. Likely from sinusitis. Doubt meningitis based on exam and history. Patient has no neck rigidity. - Continue clindamycin which will also cover for possible aspiration pneumonia Hypoxemia/possible aspiration: Coarse breath sounds on exam. Chest x-ray unremarkable. - Continue supplemental oxygen as needed. - On antibiotics as above to cover for possible aspiration pneumonia. Hypothyroidism: - Continue Synthroid. Check TSH. Ashkan Brunner MD May 31, 2017 10:18
[2017-05-31] MEDS: CLINDAMYCIN 900 MG/NS PREMIX 50 ML IV SCH ×3 (10:59→20:50)
--- NOTE | 2017-05-31 12:44 | MB ---
cc: MALIK LUA M.D. DATE OF CONSULTATION 05/31/2017 REASON FOR CONSULTATION This is a 61-year-old seen in neurological consultation with a history of seizure disorder and schizophrenia. She comes in from the nursing facility where she was apparently found on the floor appearing postictal with incontinence of urine. She was sleeping deeply upon arrival in the emergency room. Limited background information. History of seizures on Keppra apparently at 1000 mg twice a day. She has been on clozapine as well and benztropine. NEUROLOGICAL EXAM The exam showed the patient to be lethargic, intermittently awakening and sitting in bed trying to pull restraints. She has wrist restraints. She is obviously confused, verbalized a few words and then starts talking completely nonsense. She did follow some simple commands occasionally, she looked at me and established eye contact. She seems to be moving all four extremities equally and fairly strongly. Reflexes diminished, but present and plantar responses were equivocal as she withdrew. CT brain showing sinusitis. LABORATORY DATA With a white count of 10.0, hemoglobin and platelets normal. Chemistry with a sodium normal, potassium 3.5 and in another instance was 3.2. Glucose on two occasions was 130 and 143 all from today, calcium 7.7 and on the other occasions 7.3. ASSESSMENT Probable seizure recurrence. Reportedly, she takes Keppra 1000 mg twice a day[address] brain is showing evidence of sinusitis and there has been some fever. She is awakening and she is restless, agitated. The neck is supple. An EEG was obtained and apparently no ictal pattern and we will be reviewing this. He will follow the neurological course. Continue the Keppra 1000 mg IV b.i.d. and use p.r.n. Ativan for seizure recurrence. Thank you for asking us to assist in her care. MD ADONIS Fu/JESSICA /12:05 PM /12:33 PM
[2017-05-31] MEDS: HALOPERIDOL LACTATE 5 MG/ML AMP IM PRN ×2 (12:55→20:53)
[2017-05-31] MEDS: GABAPENTIN 100 MG CAP PO SCH ×2 (12:55→18:00)
[2017-05-31] MEDS ORDERED: ONDANSETRON HCL 4 MG/2 ML VIAL IV PUSH PRN (13:30)
--- NOTE | 2017-05-31 14:42 | EKG ---
Date Performed: 05/30/2017 Time Performed: 23:46:55 PTAGE: 61 years EKG: Sinus rhythm LOW QRS VOLTAGE IN EXTREMITY LEADS NONSPECIFIC T-WAVE ABNORMALITY BORDERLINE ECG Compared to prior t racing no significant change PREVIOUS TRACING : 07/27/16 DOCTOR: Cecelia Salmon Interpretating Date/Time 05/31/2017 14:38:05
[2017-05-31] MEDS: ACETAMINOPHEN 325 MG TAB PO PRN ×2 (15:37→16:44)
[2017-05-31] MEDS: D5-1/2 NS + KCL 20 MEQ INJ 1,000 ML IV SCH (15:37)
--- NOTE | 2017-05-31 17:15 | MG ---
cc: NEETA LOPEZ MD Lab No: Date: 05/31/2017 Age: Sex: F Race: DATE OF [address] Loza MEDICAL HISTORY 1. Schizophrenia. 2. Seizures. 3. Hypothyroidism. 4. COPD. 5. Carotid artery stenosis. 6. Tobacco use. 7. Stroke found on the floor at halfway, appeared to be postictal, not responding to verbal stimuli. MEDICATIONS 1. Keppra. 2. Lovenox. 3. Clindamycin. 4. Tylenol. DESCRIPTION This is a follow up EEG. There is generalized background slowing 5-6 Hz theta with evidence of triphasic waves. Hyperventilation was omitted. Photic stimulation did not elicit a driving response. During the recording there was movement artifacts. Intermittently there are atypical sharp-like discharges, mainly bitemporal. There were no electrographic seizures noted. INTERPRETATION Abnormal awake EEG with background slowing that may indicate an encephalopathic process that may be secondary to medication effect, hypoxia or metabolic abnormality. Triphasic waves may indicate a metabolic encephalopathy. There are intermittent atypical sharp like discharges in the bitemporal region of no clear electrographic significance of being epileptogenic in nature. There is no ictal activity noted or electrographic seizures. Clinical correlation is recommended. Neeta Lopez MD RGO/KK /4:34 PM /4:48 PM [facility]PITALSameera
[2017-05-31] MEDS: TRIFLUOPERAZINE 1 MG PO SCH (20:51)
[2017-05-31] MEDS: cloZAPine 100 MG TAB PO SCH (20:52)
[2017-05-31] MEDS: LORazepam 2 MG/ML VIAL IV PUSH PRN (20:54)
[2017-05-31 22:07] LABS: BLOOD GAS CARBOXYHEMOGLOBIN 0.9 % (0-4); BLOOD GAS HCO3 23 mmol/L (22-26); BLOOD GAS METHEMOGLOBIN 1.3 % (0-2); BLOOD GAS O2 HGB SATURATION 89 % (90-100); BLOOD GAS OXYGEN CONTENT 14.5 Vol % (12.0-20.0); BLOOD GAS PCO2 34 mmHg (38-42); BLOOD GAS PO2 60 mmHg (61-120); BLOOD GAS TOTAL HGB 11.5 G/DL (12.0-16.0); TEMP CORR TO 98.6
[2017-05-31 22:09] LABS: CRITICAL VALUE YES; DRAW SITE RT RADIAL; LITER FLOW 10 L/M; NUMBER OF ARTERIAL PUNCTURES 1; OXYGEN DEVICE SIMPLE MASK; STAT YES; ULNAR PULSE PRESENT
[2017-05-31] MEDS ORDERED: FLUMAZENIL 0.5 MG/5 ML VIAL ONE (22:27)
[2017-06-01] VITALS (17 sets, daily range): BP systolic 87–111; BP diastolic 50–60; PULSE 68–107; RESP 16–36; TEMP 98.2–99.5; O2SAT 91–100
[2017-06-01] MEDS: D5-1/2 NS + KCL 20 MEQ INJ 1,000 ML IV SCH
[2017-06-01] MEDS: CLINDAMYCIN 900 MG/NS PREMIX 50 ML IV SCH ×3 (02:00→14:09)
[2017-06-01 04:25] LABS: BLOOD GAS BASE EXCESS 0.4 mmol/L (-2-2); BLOOD GAS CARBOXYHEMOGLOBIN 0.7 % (0-4); BLOOD GAS HCO3 24 mmol/L (22-26); BLOOD GAS METHEMOGLOBIN 1.4 % (0-2); BLOOD GAS O2 HGB SATURATION 89 % (90-100); BLOOD GAS OXYGEN CONTENT 14.5 Vol % (12.0-20.0); BLOOD GAS PCO2 38 mmHg (38-42); BLOOD GAS PO2 60 mmHg (61-120); BLOOD GAS TOTAL HGB 11.5 G/DL (12.0-16.0); CRITICAL VALUE YES; TEMP CORR TO 98.6
[2017-06-01 04:26] LABS: DRAW SITE RT RADIAL; FIO2 100 %; LITER FLOW 15 L/M; NUMBER OF ARTERIAL PUNCTURES 1; STAT YES; ULNAR PULSE PRESENT
--- NOTE | 2017-06-01 05:08 | HHI.PR ---
Addendum to Inpatient Note Addendum Reason: Additional Documentation Additional Information overnight, pt was lethargic, and I was contacted chart reviewed pt received sedative medications including Haldol, Ativan, prior in the evening due to agitation per nursing staff. Patient was also receiving Keppra in the pill form which was crushed both in the morning and evening. Came to see patient at the bedside. At that time which was around 10 PM, patient was lethargic as compared to the night prior but was able to be aroused with minimal painful stimuli. She did sound quite congested which was not present prior night. She was receiving frequent suctioning by nursing staff. Therefore advised nursing not to crush Keppra. ABG stat was done which did not reveal any significant CO2 retention. She did however have hypoxia. She was loaded with Keppra 1 g IV at that time. Continue treatment for aspiration pneumonia with clindamycin as well. Then at around 4 AM, patient again was more lethargic on nursing examination. At that point, she was quite obtunded that staff was worried she might need to be intubated. Stat ABG was done. ABG personally reviewed. No CO2 retention. Hypoxia of 89%. ABG was done on nonrebreather which was just placed a few minutes prior. Came to see patient at the bedside the second time. However by the time of my arrival, patient is responding to painful stimuli and moving her limbs. She was much more responsive although not spontaneously opening eyes or conversant. Impression: Suspects status epilepticus Altered mental status secondary to post ictal state. Medications inadequacy Aspiration pneumonia Plan: Continue to monitor patient in ICU. Patient cannot be transferred to a stepdown unit. EEG results reviewed. Contact patient's neurologist with an update. Patient will need further loading doses if this continues. Would consider fosphenytoin/phenobarbital. However since patient is already being followed by her neurologist, would for now and await her neurologist decision. Continue clindamycin. Continue nebulizer treatments. We'll need to monitor closely for airway protection. If any doubt, patient will need intubation for airway protection. Would also obtain a stat chest x-ray to rule out fluid overload/pulmonary edema. Discussed with patient's nursing staff. I was also informed that patient's neurologist has ordered for a stat EEG. Neurologist decision is to wait on stat EEG before giving patient's further antiseizure medications at this point. We'll follow recommendations. Critical care time 30 minutes Jaylyn Loza MD Jun 01, 2017 05:08
[2017-06-01] MEDS: LEVOTHYROXINE SODIUM 75 MCG TAB PO SCH (05:32)
--- NOTE | 2017-06-01 05:44 | RADRPT ---
EXAM DATE/TIME: 06/01/2017 05:16 [facility] COMPARISON: CHEST SINGLE AP, May 31, 2017, 0:18. INDICATIONS : Shortness of breath. MEDICAL HISTORY : Cardiovascular disease. Seizures. TBI SURGICAL HISTORY : Hysterectomy. ENCOUNTER: Subsequent ACUITY: 2 days PAIN SCORE: Non-responsive. LOCATION: Bilateral chest FINDINGS: A single AP semierect view of the chest was obtained and demonstrates new patchy opacity at the right lung base. The left lung is clear. The heart size is within normal limits with no perihilar edema. T he patient is mildly rotated to the right. The bony thorax remains intact. CONCLUSION: New patchy opacity at the right lung base of concern for early pneumonia. Jose Miguel Watson MD on June 01, 2017 at 5:42 Board Certified Radiologist. This report was verified electronically.
--- NOTE | 2017-06-01 08:06 | MG ---
cc: NEETA LOPEZ MD Lab No: Date: 06/01/2017 Age: Sex: F Race: DATE OF 1955 MEDICAL HISTORY Previous seizures, hypothyroidism, COPD, carotid artery disease, tobacco use, stroke. The patient was found on the floor at the [facility], appeared to be postictal. MEDICATIONS 1. Keppra. 2. Lovenox. 3. Clindamycin. 4. Tylenol. This is a stat EEG and a follow up EEG. DESCRIPTION The background activity is 8-9 Hz alpha located posteriorly, superimposed by beta activity. There are intermittent right temporal sharp like discharges with left temporal phase reversal. Hyperventilation was omitted. Photic stimulation did not elicit a driving response. There were no electrographic seizures. INTERPRETATION: This is an abnormal awake EEG. The background has improved compared to the previous EEG that was slow and the patient is more awake. However, there are sharp-like discharges and phase reversal that may indicate epileptogenicity. There were no ictal activity/electrographic seizures noted during the recording. Beta rhythm is a nonspecific finding that may be related to medication adverse effects like benzos and barbiturate. Clinical correlation is recommended. Neeta Lopez MD RGO/TLL /7:43 AM /7:54 AM MTDD
[2017-06-01] MEDS ORDERED: ROCURONIUM INJ 50 MG/5 ML VIAL IV ONE (08:15)
[2017-06-01] MEDS ORDERED: MIDAZOLAM HCL 5 MG/5 ML VIAL IV PUSH ONE (08:15)
--- NOTE | 2017-06-01 08:24 | PD.CONS ---
HPI Service Critical Care Medicine Consult Requested By [facility] Reason for Consult Respiratory Failure Primary Care Physician Unknown History of Present Illness 61 y/o woman found down after a probable seizure at a local detention. Remains obtunded. Gas exchange acceptable but airway control marginal. Neurology Service requests MRI which will require intubation and mechanical ventilation for airway control. EEG this morning with no seizures. Past Family Social History Allergies: Coded Allergies: penicillin G (Unverified Allergy, Severe, 02/08/17) Sulfa (Sulfonamide Antibiotics) (Unverified Allergy, Intermediate, 02/08/17 ) Past Medical History Past Medical History Seizures Hypothyroidism COPD Schizophrenia Past Surgical History CHOLECYSTECTOMY hysterectomy Reported Medications pt's med rec reviewed- Allergies: Coded Allergies: penicillin G (Unverified Allergy, Severe, 02/08/17) Sulfa (Sulfonamide Antibiotics) (Unverified Allergy, Intermediate, 02/08/17 ) Family History Unknown. Social History Unknown. Social History Alcohol Use: No Tobacco Use: Yes (PACK A DAY ) Substance Use: Yes (Marijuana) Allergies-Medications Allergies-Medications (Allergen,Severity, Reaction): Coded Allergies: penicillin G (Unverified Allergy, Severe, 02/08/17) Sulfa (Sulfonamide Antibiotics) (Unverified Allergy, Intermediate, 02/08/17 ) Reported Meds & Prescriptions Reported Meds & Active Scripts Active Doxycycline Hyclate 100 Mg Cap 100 Mg PO BID Potassium Chloride ER (Potassium Chloride) 20 Meq Tab 20 Meq PO DAILY Norvasc (Amlodipine Besylate) 5 Mg Tab 10 Mg PO DAILY Flonase Allergy Relief Children Nasal [place] (Fluticasone Nasal [place]) 50 Mcg/ Act [place] 2 [place] EACH NARE DAILY 50 mcg/spray Reported Colace (Docusate Sodium) 100 Mg Cap 100 Mg PO BID Trifluoperazine (Trifluoperazine HCl) 2 Mg Tab 2 Mg PO BID Benztropine (Benztropine Mesylate) 1 Mg Tab 1 Mg PO BID Symbicort Inh (Budesonide/Formoterol Fumarate) 160-4.5 Mcg/Act Aero 2 Puff INH BID Omeprazole 20 Mg Tab 20 Mg PO DAILY Levothyroxine (Levothyroxine Sodium) 75 Mcg Tab 75 Mcg PO DAILY Keppra (Levetiracetam) 1,000 Mg Tab 1,000 Mg PO BID Lactulose Liq (Lactulose) 10 Gm/15 Ml Soln 30 Ml PO HS Gabapentin 100 Mg Cap 100 Mg PO TID Clozapine 200 Mg Tab 400 Mg PO HS Clozapine 100 Mg Tab 150 Mg PO DAILY Vitamin D-400 (Cholecalciferol) 400 Unit Tab 400 Units PO DAILY Physical Exam Vital Signs Vital Signs Date Time Temp Pulse Resp B/P (MAP) Pulse Ox O2 Delivery O2 Flow Rate FiO2 06/01/17 07:00 96 Non-Rebreather 20.00 100 06/01/17 06:00 103 06/01/17 04:00 91 06/01/17 04:00 98.2 91 30 101/50 (67) 91 06/01/17 02:00 107 06/01/17 00:00 99.5 98 32 106/59 (75) 97 06/01/17 00:00 96 05/31/17 22:00 102 05/31/17 21:27 92 Simple Mask 8.00 05/31/17 20:00 109 05/31/17 20:00 98.2 109 33 127/70 (89) 92 05/31/17 19:15 Room Air 3.00 05/31/17 18:00 86 05/31/17 17:50 26 05/31/17 17:17 94 Nasal Cannula 3.00 05/31/17 16:00 100.0 92 27 120/63 (82) 90 05/31/17 16:00 92 05/31/17 14:00 99 05/31/17 12:00 94 05/31/17 12:00 101.0 94 26 119/74 (89) 95 05/31/17 10:00 100 05/31/17 09:36 94 Nasal Cannula 1.00 Physical Exam Gen: Obtunded. Head: Atraumatic. Lungs: Diffuse rhonchi and mobile secretions. Acceptable air movement. Heart: NL S1S2, no JVD. Abdomen: Benign, soft, no guarding. Extremities: Tepid, well perfused. Neuro: Withdraws 4 limbs to noxious stimulation. Pupils 2 mm, reactive. Weak cough reflex. Garbled speech. Laboratory Laboratory Tests Test 05/31/17 21:59 06/01/17 04:16 06/01/17 07:50 Blood Gas Puncture Site RT RADIAL RT RADIAL Blood Gas Patient Temperature 98.6 98.6 Blood Gas HCO3 23 24 Blood Gas Base Excess 0.0 0.4 Blood Gas Oxygen Saturation 89 89 Arterial Blood pH 7.46 7.42 Arterial Blood Partial Pressure CO2 34 38 Arterial Blood Partial Pressure O2 60 60 Arterial Blood Oxygen Content 14.5 14.5 Arterial Blood Carboxyhemoglobin 0.9 0.7 Arterial Blood Methemoglobin 1.3 1.4 Blood Gas Hemoglobin 11.5 11.5 Oxygen Delivery Device SIMPLE MASK Non-Rebreathing Mask Blood Gas Liter Flow 10 15 Blood Gas Inspired Oxygen 100 Date/Time Source Procedure Growth Status 05/31/17 00:20 Blood Peripheral Aerobic Blood Culture Pending Received 05/31/17 00:20 Blood Peripheral Anaerobic Blood Culture Pending Received Result Diagram: 05/31/1742705/31/17427 Assessment and Plan Assessment and Plan Assessment and Plan Breakthrough seizure, Altered mental status likely secondary to postictal state. Schizophrenia Fever 101 on presentation. Likely from sinusitis. Continue clindamycin which will also cover for possible aspiration pneumonia. Add Vancomycin for health care exposure Hypoxemia/possible aspiration: Coarse breath sounds on exam. Chest x-ray RML pneumonitis. - PRVC vent mode, intubated 06/01 - On antibiotics as above to cover for possible aspiration pneumonia, meningitis Hypothyroidism: - Continue Synthroid. Check TSH. Overall impression: Critically ill with deteriorating LOC and unable to protect airway. Requires intubation and mechanical ventilation. Will tap CSF. Critical Care 45 mins aside from procedures Devaughn Wall MD Jun 01, 2017 08:24
[2017-06-01] MEDS: SODIUM CHLORIDE 0.9% FLUSH 10 ML FLUSH IV FLUSH SCH (08:30)
[2017-06-01] MEDS: NS + KCL 20 MEQ INJ 1,000 ML IV SCH ×2 (08:30→20:12)
[2017-06-01 08:38] LABS: BICARBONATE 24.3 MEQ/L (21.0-32.0); POTASSIUM 3.1 MEQ/L (3.5-5.1)
[2017-06-01] MEDS: CHOLECALCIFEROL (VIT D3) 400 UNIT TAB PO SCH (09:00)
[2017-06-01] MEDS: FAMOTIDINE 20 MG TAB PO SCH ×2 (09:00→20:11)
[2017-06-01] MEDS: GABAPENTIN 100 MG CAP PO SCH ×3 (09:00→18:03)
--- NOTE | 2017-06-01 09:08 | HHI.PR ---
Subjective Subjective Comments called at 5 am pt stuporous and possibly start new seizure med i did not think it was a seizure and ordred stat eeg, per tech not obviously ictal will review eeg suspect more sedated due to haldol and ativan dose check mri as well Active Medications Current Medications Medications (Trade) Dose Ordered Sig/Matt Route Start Time Stop Time Status Last Admin (NS Flush) 2 ml UNSCH PRN IV FLUSH 05/31/17 01:30 (NS Flush) 2 ml BID IV FLUSH 05/31/17 09:00 06/01/17 08:30 (Narcan Inj) 0.4 mg UNSCH PRN IV PUSH 05/31/17 01:30 (Ativan Inj) 1 mg Q15M PRN IV PUSH 05/31/17 01:30 Clindamycin/ Sodium Chloride 50 ml @ 100 mls/hr Q6H IV 05/31/17 08:00 06/01/17 08:00 (Pepcid) 20 mg Q12HR PO 05/31/17 09:00 05/31/17 20:52 (Ativan Inj) 1 mg Q4H PRN IV PUSH 05/31/17 09:30 05/31/17 20:54 (Haldol Inj) 2 mg Q4H PRN IM 05/31/17 10:15 05/31/17 20:53 (Vitamin D3) 400 units DAILY PO 06/01/17 09:00 (Clozaril) 400 mg HS PO 05/31/17 21:00 05/31/17 20:52 (Neurontin) 100 mg TID PO 05/31/17 13:00 05/31/17 12:55 (Synthroid) 75 mcg DAILY@0600 PO 06/01/17 06:00 Non-Formulary Medication 2 mg BID PO 05/31/17 21:00 05/31/17 20:51 (Tylenol) 650 mg Q4H PRN PO 05/31/17 13:30 05/31/17 16:44 (Zofran Inj) 4 mg Q6H PRN IV PUSH 05/31/17 13:30 Levetriacetam 100 ml @ 400 mls/hr Q12HR IV 06/01/17 09:00 (Peridex 0.12% Liq) 15 ml BID@08,20 MT 06/01/17 20:00 Propofol 100 ml @ 1.671 mls/ hr TITRATE PRN IV 06/01/17 08:30 Potassium Chloride/Sodium Chloride 1,000 ml @ 84 mls/hr [id number] IV 06/01/17 08:30 Allergies Allergies Coded Allergies penicillin G (Unverified Allergy, Severe, 02/08/17) Sulfa (Sulfonamide Antibiotics) (Unverified Allergy, Intermediate, 02/08/17) Exam I&O / VS Vital Signs Date Time Temp Pulse Resp B/P (MAP) Pulse Ox O2 Delivery O2 Flow Rate FiO2 06/01/17 07:00 96 Non-Rebreather 20.00 100 06/01/17 06:00 103 06/01/17 04:00 91 06/01/17 04:00 98.2 91 30 101/50 (67) 91 06/01/17 02:00 107 06/01/17 00:00 99.5 98 32 106/59 (75) 97 06/01/17 00:00 96 05/31/17 22:00 102 05/31/17 21:27 92 Simple Mask 8.00 05/31/17 20:00 109 05/31/17 20:00 98.2 109 33 127/70 (89) 92 05/31/17 19:15 Room Air 3.00 05/31/17 18:00 86 05/31/17 17:50 26 05/31/17 17:17 94 Nasal Cannula 3.00 05/31/17 16:00 100.0 92 27 120/63 (82) 90 05/31/17 16:00 92 05/31/17 14:00 99 05/31/17 12:00 94 05/31/17 12:00 101.0 94 26 119/74 (89) 95 05/31/17 10:00 100 05/31/17 09:36 94 Nasal Cannula 1.00 Objective Micro and Labs Laboratory Tests Test 05/31/17 21:59 06/01/17 04:16 06/01/17 07:50 Blood Gas Puncture Site RT RADIAL RT RADIAL Blood Gas Patient Temperature 98.6 98.6 Blood Gas HCO3 23 24 Blood Gas Base Excess 0.0 0.4 Blood Gas Oxygen Saturation 89 89 Arterial Blood pH 7.46 7.42 Arterial Blood Partial Pressure CO2 34 38 Arterial Blood Partial Pressure O2 60 60 Arterial Blood Oxygen Content 14.5 14.5 Arterial Blood Carboxyhemoglobin 0.9 0.7 Arterial Blood Methemoglobin 1.3 1.4 Blood Gas Hemoglobin 11.5 11.5 Oxygen Delivery Device SIMPLE MASK Non-Rebreathing Mask Blood Gas Liter Flow 10 15 Blood Gas Inspired Oxygen 100 Blood Urea Nitrogen 15 Creatinine 0.92 Random Glucose 204 Calcium Level 7.7 Sodium Level 144 Potassium Level 3.1 Chloride Level 111 Carbon Dioxide Level 24.3 Anion Gap 9 Estimat Glomerular Filtration Rate 62 Thyroid Stimulating Hormone 3rd Gen 0.496 Date/Time Source Procedure Growth Status 05/31/17 00:20 Blood Peripheral Aerobic Blood Culture Pending Resulted 05/31/17 00:20 Anaerobic Blood Culture - Preliminary Gram Positive Cocci Resulted Florentin Caicedo MD Jun 01, 2017 09:08
--- NOTE | 2017-06-01 09:11 | PD.PROCEDR ---
Procedure Note Procedure DX: Respiratory Failure (J96.00) OP: Orotracheal Intubation (59274) Procedure: Bag mask ventilation. Versed 5 mg and rocuronium 50 mg iv. Intubated orally with 7.5 cuffed tube. Moderate amount secretions overlying cords. Some food material. Position of tube confirmed with CO2 detection, breath sounds, sats 100%. CXR ordered, will review. Devaughn Wall MD Jun 01, 2017 09:10
--- NOTE | 2017-06-01 09:54 | PD.PROCEDR ---
Procedure Note Procedure DX: Acute encephalopathy OP: Diagnostic Lumbar Puncture (06874) Procedure: Time out. Unable to consent due to inability to contact family despite multiple efforts. Urgent need for CSF to rule out meningitis. Patient turned in left lateral decubitus position. Lumbar region prepped and draped. Twenty gauge needle inserted through L3-4 space in midline and clear fluid obtained. Opening pressure 25 cm H2O. 10 mls total drained into 4 tubes and sent for labs and cultures. Needle withdrawn and patient positioned flat again. Devaughn Wall MD Jun 01, 2017 09:54
[2017-06-01] MEDS: levETIRAcetam INJ 100 ML IV SCH ×2 (09:59→20:10)
[2017-06-01] MEDS ORDERED: MAGNESIUM SULFATE INJ 2 GM in SODIUM CHLORIDE 0.9% INJ 96 ML IV PRN (10:30)
[2017-06-01] MEDS ORDERED: MAGNESIUM OXIDE 400 MG TAB PO PRN (10:30)
[2017-06-01] MEDS ORDERED: POTASSIUM PHOSPHATE MONOBASIC 500 MG TAB PO/TUBE PRN (10:30)
[2017-06-01] MEDS ORDERED: POTASSIUM CHLOR 40 MEQ PREMIX 100 ML IV PRN ×2 (10:30)
[2017-06-01] MEDS ORDERED: SODIUM PHOSPHATE INJ 30 MMOL in SODIUM CHLOR 0.9% 250 ML INJ 240 ML IV PRN (10:30)
[2017-06-01] MEDS ORDERED: POTASSIUM PHOSPHATE INJ 30 MMOL in SODIUM CHLOR 0.9% 250 ML INJ 250 ML IV PRN (10:30)
[2017-06-01] MEDS ORDERED: POTASSIUM CHLORIDE 25 MEQ EFFERVESCENT TAB PO PRN (10:30)
[2017-06-01] MEDS ORDERED: MAGNESIUM SULFATE INJ 4 GM in SODIUM CHLORIDE 0.9% INJ 92 ML IV PRN (10:30)
[2017-06-01] MEDS ORDERED: POTASSIUM PHOSPHATE MONOBASIC 500 MG TAB PO PRN (10:30)
[2017-06-01] MEDS ORDERED: POTASSIUM CHLOR 20 MEQ PREMIX 100 ML IV PRN (10:30)
--- NOTE | 2017-06-01 10:38 | RADRPT ---
EXAM DATE/TIME: 06/01/2017 09:51 [facility] COMPARISON: CHEST SINGLE AP, June 01, 2017, 5:16. INDICATIONS : ET tube position. MEDICAL HISTORY : Cardiovascular disease. Seizures. TBI. SURGICAL HISTORY : Hysterectomy. ENCOUNTER: Subsequent ACUITY: 1 day PAIN SCORE: Non-responsive. LOCATION: Bilateral chest FINDINGS: Endotracheal and nasogastric tubes have been inserted and are in good position. Acute air space remains evident in the right mid and lower lung. Left lung is relatively clear. Heart and mediastinal structures are unremarkable. CONCLUSION: 1. Satisfactory position of endotracheal and nasogastric tubes. 2. Persistent right lung airspace disease. Osmany Armenta MD on June 01, 2017 at 10:36 Board Certified Radiologist. This report was verified electronically.
[2017-06-01] MEDS ORDERED: Vancomycin Consult Pharmacy 1 EA OTHER SCH (10:40)
[2017-06-01] MEDS: TRIFLUOPERAZINE 1 MG PO SCH ×2 (10:51→20:48)
[2017-06-01] MEDS: POTASSIUM CHLOR 20 MEQ PREMIX 100 ML IV PRN ×4 (10:54→18:51)
[2017-06-01 11:12] LABS: CSF EOSINOPHILS 1 %; CSF LYMPHOCYTES 85 %; CSF MONOCYTES 14 %
[2017-06-01 11:14] LABS: CSF LYMPHOCYTES 84 %; CSF MONOCYTES 16 %; CSF NEUTROPHILS 0 %
[2017-06-01 11:15] LABS: CSF NEUTROPHILS 0 %
[2017-06-01 11:17] LABS: GROSS BLOOD TUBE #1 0 (0); SUPERNATE COLOR TUBE #1 CLEAR (CLEAR); VOLUME TUBE # 1 1.9 ML; WBC TUBE #1 28 /MM3 (0-10)
[2017-06-01 11:18] LABS: GROSS BLOOD TUBE #2 0 (0); GROSS BLOOD TUBE #3 0 (0); GROSS BLOOD TUBE #4 0 (0); SUPERNATE COLOR TUBE #2 CLEAR (CLEAR); SUPERNATE COLOR TUBE #3 CLEAR (CLEAR); SUPERNATE COLOR TUBE #4 CLEAR (CLEAR); VOLUME TUBE # 4 2.5 ML
[2017-06-01 11:19] LABS: GROSS BLOOD TUBE #4 0 (0); SUPERNATE COLOR TUBE #4 CLEAR (CLEAR); VOLUME TUBE # 4 2.5 ML; WBC TUBE #4 23 /MM3 (0-10)
[2017-06-01 11:31] LABS: BLOOD GAS BASE EXCESS -2.2 mmol/L (-2-2); BLOOD GAS CARBOXYHEMOGLOBIN 0.4 % (0-4); BLOOD GAS HCO3 23 mmol/L (22-26); BLOOD GAS METHEMOGLOBIN 1.4 % (0-2); BLOOD GAS O2 HGB SATURATION 98 % (90-100); BLOOD GAS OXYGEN CONTENT 16.5 Vol % (12.0-20.0); BLOOD GAS PCO2 41 mmHg (38-42); BLOOD GAS PO2 495 mmHg (61-120); TEMP CORR TO 98.6
[2017-06-01 11:32] LABS: CRITICAL VALUE NO; DRAW SITE RT RADIAL; FIO2 100 %; NUMBER OF ARTERIAL PUNCTURES 1; OXYGEN DEVICE VENTILATOR; STAT NO; ULNAR PULSE PRESENT; VENT SETTINGS PRVC16/450/1.0/+8
[2017-06-01] MEDS: VANCOMYCIN 1,000 MG/NS 250 ML IV SCH ×2 (12:08)
[2017-06-01] MEDS: PROPOFOL 1000 MG/100 ML INJ 100 ML IV PRN (12:15)
--- NOTE | 2017-06-01 12:40 | PD.ID.CON ---
History of Present Illness Service ID Consult Requested By Dr Metzger Reason for Consult gram positive bacteremia Primary Care Physician Unknown Diagnoses: History of Present Illness 61-year-old female with history of seizure disorder, sent in from her long term after being found on the floor of her room appearing to be postictal. The patient was incontinent of urine. She was admitted to ICU and intubated 2/2 neurological indications (need for MRI and seizure control) She is growin GPC in the blood CSF was obtained and has some mild lymphacytic pleocytosis She was febrile u to 101 on admission Review of Systems ROS Limitations: Intubated, Altered Mental Status, Unresponsive Past Family Social History Allergies: Coded Allergies: penicillin G (Unverified Allergy, Severe, 02/08/17) Sulfa (Sulfonamide Antibiotics) (Unverified Allergy, Intermediate, 02/08/17 ) Past Medical History Seizures Hypothyroidism COPD Schizophrenia Past Surgical History CHOLECYSTECTOMY hysterectomy Active Ordered Medications Medications where reviewed in EMR Antibiotics Include: clindamycin vancomycin Family History Unknown. Social History Unknown. Physical Exam Vital Signs Vital Signs Date Time Temp Pulse Resp B/P (MAP) Pulse Ox O2 Delivery O2 Flow Rate FiO2 06/01/17 11:25 100 40 06/01/17 08:45 99 100 06/01/17 07:00 96 Non-Rebreather 20.00 100 06/01/17 06:00 103 06/01/17 04:00 91 06/01/17 04:00 98.2 91 30 101/50 (67) 91 06/01/17 02:00 107 06/01/17 00:00 99.5 98 32 106/59 (75) 97 06/01/17 00:00 96 05/31/17 22:00 102 05/31/17 21:27 92 Simple Mask 8.00 05/31/17 20:00 109 05/31/17 20:00 98.2 109 33 127/70 (89) 92 05/31/17 19:15 Room Air 3.00 05/31/17 18:00 86 05/31/17 17:50 26 05/31/17 17:17 94 Nasal Cannula 3.00 05/31/17 16:00 100.0 92 27 120/63 (82) 90 05/31/17 16:00 92 05/31/17 14:00 99 Physical Exam CONSTITUTIONAL/GENERAL: This is an adequately nourished patient, in no apparent distress. Sedated. Intubated . On [facility] vent'n TUBES/LINES/DRAINS: SKIN: No jaundice, rashes, or lesions. Skin temperature appropriate. Not diaphoretic. HEAD: Atraumatic. Normocephalic. EYES: Pupils equal and round and reactive. Extraocular motions intact. No scleral icterus. No injection or drainage. Fundi not examined. ENT: Hearing not tested. Nose without bleeding or purulent drainage. Throat without visible erythema, exudates, masses, or lesions. orally intubated NECK: Trachea midline. Supple, nontender. CARDIOVASCULAR: Regular rate and rhythm without murmurs, gallops, or rubs. No JVD. Peripheral pulses symmetric. RESPIRATORY/CHEST: Symmetric, unlabored respirations. Clear to auscultation. Breath sounds equal bilaterally. No wheezes, rales, or rhonchi. GASTROINTESTINAL: Abdomen soft, non-tender, nondistended. No hepato-splenomegaly , or palpable masses. No guarding. Bowel sounds present. GENITOURINARY: Without palpable bladder distension. Andrade catheter in place. MUSCULOSKELETAL: Extremities without clubbing, cyanosis, or edema. No joint tenderness or effusion noted. No calf tenderness. No mottling or clubbing. LYMPHATICS: No palpable cervical or supraclavicular adenopathy. NEUROLOGICAL: sedatred , unresponsive PSYCHIATRIC:unable to assess Laboratory Laboratory Tests Test 05/31/17 21:59 06/01/17 04:16 06/01/17 07:50 06/01/17 09:00 Blood Gas Puncture Site RT RADIAL RT RADIAL Blood Gas Patient Temperature 98.6 98.6 Blood Gas HCO3 23 24 Blood Gas Base Excess 0.0 0.4 Blood Gas Oxygen Saturation 89 89 Arterial Blood pH 7.46 7.42 Arterial Blood Partial Pressure CO2 34 38 Arterial Blood Partial Pressure O2 60 60 Arterial Blood Oxygen Content 14.5 14.5 Arterial Blood Carboxyhemoglobin 0.9 0.7 Arterial Blood Methemoglobin 1.3 1.4 Blood Gas Hemoglobin 11.5 11.5 Oxygen Delivery Device SIMPLE MASK Non-Rebreathing Mask Blood Gas Liter Flow 10 15 Blood Gas Inspired Oxygen 100 Blood Urea Nitrogen 15 Creatinine 0.92 Random Glucose 204 Calcium Level 7.7 Sodium Level 144 Potassium Level 3.1 Chloride Level 111 Carbon Dioxide Level 24.3 Anion Gap 9 Estimat Glomerular Filtration Rate 62 Thyroid Stimulating Hormone 3rd Gen 0.496 CSF Volume (Tube 1) 1.9 CSF Supernatant Color (tube 1) CLEAR CSF Gross Blood (Tube 1) 0 CSF WBC (Tube 1) 28 CSF RBC (Tube 1) 2 CSF Volume (Tube 2) 3.0 CSF Supernatant Color (tube 2) CLEAR CSF Gross Blood (Tube 2) 0 CSF Volume (Tube 3) 2.0 CSF Supernatant Color (tube 3) CLEAR CSF Gross Blood (Tube 3) 0 CSF Volume (Tube 4) 2.5 CSF Supernatant Color (tube 4) CLEAR CSF Gross Blood (Tube 4) 0 CSF WBC (Tube 4) 23 CSF RBC (Tube 4) 0 CSF Neutrophils 0 CSF Lymphocytes 84 CSF Monocytes 16 CSF Eosinophils 1 CSF Glucose 109 CSF Total Protein 34.3 Test 06/01/17 11:00 Blood Gas Puncture Site RT RADIAL Blood Gas Patient Temperature 98.6 Blood Gas HCO3 23 Blood Gas Base Excess -2.2 Blood Gas Oxygen Saturation 98 Arterial Blood pH 7.36 Arterial Blood Partial Pressure CO2 41 Arterial Blood Partial Pressure O2 495 Arterial Blood Oxygen Content 16.5 Arterial Blood Carboxyhemoglobin 0.4 Arterial Blood Methemoglobin 1.4 Blood Gas Hemoglobin 11.0 Oxygen Delivery Device VENTILATOR Blood Gas Ventilator Setting PRVC16/450/1.0/+8 Blood Gas Inspired Oxygen 100 Date/Time Source Procedure Growth Status 05/31/17 00:20 Blood Peripheral Aerobic Blood Culture - Preliminary Gram Positive Cocci Resulted 05/31/17 00:20 Anaerobic Blood Culture - Preliminary Gram Positive Cocci Resulted 06/01/17 09:00 Cerebral Spinal Fluid Lumbar Puncture Gram Stain - Final Resulted 06/01/17 09:00 Cerebral Spinal Fluid Lumbar Puncture CSF Culture Pending Resulted 06/01/17 09:00 Sputum Endotracheal Gram Stain Pending Received 06/01/17 09:00 Sputum Endotracheal Sputum Culture Pending Received Result Diagram: 05/31/17 0428 06/01/17 0750 Imaging Last Impressions Chest X-Ray 06/01/17 0000 Signed Impressions: Service Date/Time: Thursday, June 01, 2017 09:51 - CONCLUSION: 1. Satisfactory position of endotracheal and nasogastric tubes. 2. Persistent right lung airspace disease. Osmany Armenta MD Head CT 05/30/17 0000 Signed Impressions: Service Date/Time: Wednesday, May 31, 2017 00:29 - CONCLUSION: 1. No acute hemorrhage or mass effect. 2. Evidence of acute sinusitis involving the sphenoid sinus. Jose Miguel Watson MD Cervical Spine CT 05/30/17 0000 Signed Impressions: Service Date/Time: Wednesday, May 31, 2017 00:29 - CONCLUSION: Negative trauma CT. Jose Miguel Watson MD Assessment and Plan Assessment and Plan sp seizure Acute VDRF Gram positive bacteremia Lymphocytic pleocytosis ? post ictal start [employer]CH[employer]ICIAN infection coverage incluiding acyclovir (fever, seizere, abnormal CSF pleocytosis) fu CSF studies dc clindamyci cont vanco add acyclovir for now brain MRI Bess Suarez MD Jun 01, 2017 12:40
[2017-06-01] MEDS: NOREPINEPHRINE INJ 4 MG in SODIUM CHLOR 0.9% 250 ML INJ 246 ML IV PRN ×2 (14:30→20:50)
[2017-06-01] MEDS ORDERED: TERBUTALINE INJ 1 MG/ML AMP SQ PRN (15:00)
--- NOTE | 2017-06-01 16:39 | RADRPT ---
EXAM DATE/TIME: 06/01/2017 15:33 [facility] COMPARISON: CT BRAIN W/O CONTRAST, May 31, 2017, 0:29. INDICATIONS : Seizures. MEDICAL HISTORY : Chronic obstructive pulmonary disease. Seizures. Osteoporosis. SURGICAL HISTORY : Hysterectomy. Cholecystectomy. ENCOUNTER: Subsequent ACUITY: 2 day PAIN SCORE: 0/10 LOCATION: cranial TECHNIQUE: Multiplanar, multisequence MRI of the brain was performed without contrast. FINDINGS: CEREBRUM: A focal defect is identified in the medial wall of the left middle cranial fossa. There is focal prot rusion of the left temporal lobe through the defect into the sphenoid sinus resulting in slight entra pment and dilatation of the temporal horn. There is no evidence of mass effect or restricted diffusio n associated with this process. Cerebral cortex otherwise normal. WHITE MATTER: Poorly defined T2 hyperintensity is identified in the centrum semiovale bilaterally especially on the left. There is no associated restricted diffusion or mass effect. POSTERIOR FOSSA: The cerebellum and brainstem are intact. The 4th ventricle is midline. The cerebellopontine angle is unremarkable. The cerebellar tonsils are normal in position. DIFFUSION IMAGING: No focal areas of restricted diffusion are seen. No evidence of acute infarction. EXTRACRANIAL: In addition to the encephalocele within the sphenoid sinus there is significant mucosal thickening wi th almost total opacification. Visualized paranasal sinuses are otherwise clear. CONCLUSION: 1. 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 Loss of volume suggests that this is a long-standing process. 2. Subtle cerebral white matter disease of uncertain etiology. Chronic ischemic versus inflammatory p rocess should be considered. 3. No evidence of acute infarct, hemorrhage, intra-axial mass. 4. Mucosal inflammatory disease in the sphenoid sinus. Osmany Armenta MD on June 01, 2017 at 16:18 Board Certified Radiologist. This report was verified electronically.
[2017-06-01] MEDS: cefTRIAXone INJ 2,000 MG in SODIUM CHLORIDE 0.9% INJ 100 ML IV SCH (17:36)
[2017-06-01] MEDS: SODIUM CHLORIDE 0.9% IV SCH (18:03)
[2017-06-01] MEDS: ACYCLOVIR IV SCH (18:03)
[2017-06-01 18:36] LABS: HEMATOCRIT 33.3 % (35.0-46.0); MEAN CELL VOLUME 92.9 FL (80.0-100.0); MEAN CORPUSCULAR HGB CONC 33.3 % (32.0-36.0); PLATELET COUNT 158 TH/MM3 (150-450); RED BLOOD COUNT 3.58 MIL/MM3 (4.00-5.30); RED CELL DISTRIBUTION WIDTH 14.4 % (11.6-17.2); REVIEW FLAG FINAL; WHITE BLOOD COUNT 12.2 TH/MM3 (4.0-11.0)
[2017-06-01] MEDS: cloZAPine 100 MG TAB PO SCH (20:11)
[2017-06-01] MEDS: CHLORHEXIDINE 0.12% (ORAL KIT) 15 ML CUP MT SCH (20:13)
[2017-06-02] VITALS (18 sets, daily range): BP systolic 90–118; BP diastolic 60–74; PULSE 66–104; RESP 17–27; TEMP 97.7–99; O2SAT 96–100
[2017-06-02] MEDS: SODIUM CHLORIDE 0.9% FLUSH 10 ML FLUSH IV FLUSH SCH ×3 (00:40→21:00)
[2017-06-02] MEDS: VANCOMYCIN 1,000 MG/NS 250 ML IV SCH ×4 (00:40→11:42)
[2017-06-02] MEDS: ACYCLOVIR IV SCH ×3 (02:16→18:11)
[2017-06-02] MEDS: SODIUM CHLORIDE 0.9% IV SCH ×3 (02:16→18:11)
[2017-06-02] MEDS: cefTRIAXone INJ 2,000 MG in SODIUM CHLORIDE 0.9% INJ 100 ML IV SCH ×2 (05:11→16:56)
[2017-06-02 05:49] LABS: AUTOMATED NEUTROPHIL # 11.2 TH/MM3 (1.8-7.7); BASOPHIL % 0.4 % (0.0-2.0); HEMATOCRIT 35.5 % (35.0-46.0); LYMPHOCYTE # 0.7 TH/MM3 (1.0-4.8); MEAN CELL VOLUME 92.5 FL (80.0-100.0); MEAN CORPUSCULAR HEMOGLOBIN 30.2 PG (27.0-34.0); MEAN CORPUSCULAR HGB CONC 32.7 % (32.0-36.0); NEUT % 90.6 % (16.0-70.0); PLATELET COUNT 165 TH/MM3 (150-450); RED BLOOD COUNT 3.84 MIL/MM3 (4.00-5.30); RED CELL DISTRIBUTION WIDTH 14.2 % (11.6-17.2); WHITE BLOOD COUNT 12.4 TH/MM3 (4.0-11.0)
[2017-06-02 05:52] LABS: HEMO FLAGS AUTO DIFF
[2017-06-02] MEDS: LEVOTHYROXINE SODIUM 75 MCG TAB PO SCH (06:07)
[2017-06-02 07:15] LABS: BANDS 32 % (0-6); METAMYELOCYTES 1 % (0-1); NEUTROPHIL # MANUAL DIFF 11.4 TH/MM3 (1.8-7.7); POLYS (SEG NEUTROPHILS) 59 % (16-70); TOXIC VACUOLATION PRESENT (NONE SEEN); WBC DIFF SAMPLE 100
[2017-06-02 07:16] LABS: PLATELET ESTIMATE SMEAR NORMAL (NORMAL); PLATELET MORPHOLOGY NORMAL (NORMAL)
--- NOTE | 2017-06-02 07:16 | HHI.CCPN ---
Subjective Remarks/Hospital Course 61 y/o woman found down after a probable seizure at a local [place] [facility] facility. Remains obtunded. Gas exchange acceptable but airway control marginal. Neurology Service requests MRI which will require intubation and mechanical ventilation for airway control. EEG this morning with no seizures. 06/02: CSF could be viral FAMILY DENTIST process, bacterial unlikely. High airway pressures after aspiration pneumonitis (aspirated prior to intubation). Remains largely obtunded. Objective Vital Signs Date Time Temp Pulse Resp B/P (MAP) Pulse Ox O2 Delivery O2 Flow Rate FiO2 06/02/17 06:00 84 06/02/17 04:12 98 35 06/02/17 04:00 97.7 17 90/61 (71) 06/01/17 07:00 Non-Rebreather 20.00 Intake and Output 06/02/17 06/02/17 06/03/17 08:00 16:00 00:00 Intake Total 2049 ml Output Total 425 ml Balance 1624 ml Result Diagram: 06/02/17 8631 06/01/17 3658 Other Results Laboratory Tests Test 06/01/17 11:00 Blood Gas Puncture Site RT RADIAL Blood Gas Patient Temperature 98.6 Blood Gas HCO3 23 mmol/L (22-26) Blood Gas Base Excess -2.2 mmol/L (-2-2) Blood Gas Oxygen Saturation 98 % (90-100) Arterial Blood pH 7.36 (7.380-7.420) Arterial Blood Partial Pressure CO2 41 mmHg (38-42) Arterial Blood Partial Pressure O2 495 mmHg (61-120) Arterial Blood Oxygen Content 16.5 Vol % (12.0-20.0) Arterial Blood Carboxyhemoglobin 0.4 % (0-4) Arterial Blood Methemoglobin 1.4 % (0-2) Blood Gas Hemoglobin 11.0 G/DL (12.0-16.0) Oxygen Delivery Device VENTILATOR Blood Gas Ventilator Setting PRVC16/450/1.0/+8 Blood Gas Inspired Oxygen 100 % Objective Remarks Gen: Obtunded. Unresponsive. Head: Atraumatic. Lungs: Diffuse rhonchi, wheezes moderate. Acceptable air movement. Heart: NL S1S2, no JVD. Abdomen: Benign, soft, no guarding. BS active. Extremities: Warm, well perfused. Neuro: Withdraws 4 limbs to noxious stimulation. Pupils 2 mm, reactive. Weak cough reflex. No purposeful movement. A/P Assessment and Plan Assessment and Plan Seizures: Breakthrough seizure, Altered mental status likely secondary to postictal state vs viral FAMILY DENTIST infection. Schizophrenia Infectious Disease: Fever 101 on presentation. Likely from sinusitis. Blood cultures Stap X 3/4 bottles. Narrowed to Vancomycin by ID Service. Add Vancomycin for health care exposure Respiratory Failure: Hypoxemia and aspiration prior to intubation (not ventilator associated). Coarse breath sounds persist on exam. Chest x-ray RML pneumonitis. - PRVC vent mode, intubated 06/01. Persistently elevated airway pressures. Hypothyroidism: - Continue Synthroid. Check TSH -> NL Overall impression: Critically ill with deteriorating LOC and unable to protect airway. Aspiration pneumonitis. Required intubation and mechanical ventilation. Pulmonary status deteriorating. Critical Care 40 mins Devaughn Wall MD Jun 02, 2017 07:16
[2017-06-02 07:17] LABS: SCAN/DIFF FINAL DIFF MANUAL
--- NOTE | 2017-06-02 07:35 | RADRPT ---
EXAM DATE/TIME: 06/02/2017 07:11 [facility] COMPARISON: CHEST SINGLE AP, June 01, 2017, 9:51. INDICATIONS : High airway pressure MEDICAL HISTORY : Cardiovascular disease. Seizures. TBI. SURGICAL HISTORY : Hysterectomy. ENCOUNTER: Subsequent ACUITY: 2 days PAIN SCORE: Non-responsive. LOCATION: chest FINDINGS: A single view of the chest demonstrates the endotracheal tube and nasogastric are both in good positi on. Mild interstitial prominence throughout the lungs. No visible pneumothorax. The cardiomediastina l contours are unremarkable. Osseous structures are intact. CONCLUSION: ET tube and NG tube both in good position. Mild interstitial prominence throughout the lungs. Mikey Salcedo MD on June 02, 2017 at 7:33 Board Certified Radiologist. This report was verified electronically.
[2017-06-02] MEDS: CHLORHEXIDINE 0.12% (ORAL KIT) 15 ML CUP MT SCH ×2 (08:00→20:00)
[2017-06-02] MEDS: RESP: ALBUTEROL 2.5 MG/IPRATROPIUM 0.5 MG NEB (SCH) NEB ×3 (08:24→21:07)
[2017-06-02] MEDS: levETIRAcetam INJ 100 ML IV SCH ×2 (08:51→23:02)
[2017-06-02] MEDS: GABAPENTIN 100 MG CAP PO SCH ×3 (08:51→18:11)
[2017-06-02] MEDS: CHOLECALCIFEROL (VIT D3) 400 UNIT TAB PO SCH (08:51)
[2017-06-02] MEDS: NS + KCL 20 MEQ INJ 1,000 ML IV SCH (08:51)
[2017-06-02] MEDS: FAMOTIDINE 20 MG TAB PO SCH ×2 (08:51→21:00)
[2017-06-02] MEDS: TRIFLUOPERAZINE 1 MG PO SCH ×2 (08:51→21:00)
[2017-06-02] MEDS: PROPOFOL 1000 MG/100 ML INJ 100 ML IV PRN ×2 (09:45→20:00)
[2017-06-02] MEDS: NOREPINEPHRINE INJ 4 MG in SODIUM CHLOR 0.9% 250 ML INJ 246 ML IV PRN (10:28)
--- NOTE | 2017-06-02 15:25 | HHI.PR ---
Addendum to Inpatient Note Additional Information pt was seen today around 11 am - full note to follow Bess Suarez MD Jun 02, 2017 15:25
--- NOTE | 2017-06-02 16:06 | HHI.PR ---
Review/Management Daily Summary 06/02 no seizures restless, intubated moves 4 limbs mri brain seen , encephalocele! discussed with hr representative dr Caesar ca for delfino Wall, consult neurosurgery Subjective Subjective Comments intubated, restlesness Active Medications Current Medications Medications (Trade) Dose Ordered Sig/Matt Route Start Time Stop Time Status Last Admin (NS Flush) 2 ml UNSCH PRN IV FLUSH 05/31/17 01:30 (NS Flush) 2 ml BID IV FLUSH 05/31/17 09:00 06/02/17 00:40 (Narcan Inj) 0.4 mg UNSCH PRN IV PUSH 05/31/17 01:30 (Ativan Inj) 1 mg Q15M PRN IV PUSH 05/31/17 01:30 (Pepcid) 20 mg Q12HR PO 05/31/17 09:00 06/02/17 08:51 (Ativan Inj) 1 mg Q4H PRN IV PUSH 05/31/17 09:30 05/31/17 20:54 (Haldol Inj) 2 mg Q4H PRN IM 05/31/17 10:15 05/31/17 20:53 (Vitamin D3) 400 units DAILY PO 06/01/17 09:00 06/02/17 08:51 (Clozaril) 400 mg HS PO 05/31/17 21:00 06/01/17 20:11 (Neurontin) 100 mg TID PO 05/31/17 13:00 06/02/17 14:13 (Synthroid) 75 mcg DAILY@0600 PO 06/01/17 06:00 06/02/17 06:07 Non-Formulary Medication 2 mg BID PO 05/31/17 21:00 06/02/17 08:51 (Tylenol) 650 mg Q4H PRN PO 05/31/17 13:30 05/31/17 16:44 (Zofran Inj) 4 mg Q6H PRN IV PUSH 05/31/17 13:30 Levetriacetam 100 ml @ 400 mls/hr Q12HR IV 06/01/17 09:00 06/02/17 08:51 (Peridex 0.12% Liq) 15 ml BID@08,20 MT 06/01/17 20:00 06/02/17 08:00 Propofol 100 ml @ 1.671 mls/ hr TITRATE PRN IV 06/01/17 08:30 06/02/17 09:45 Potassium Chloride/Sodium Chloride 1,000 ml @ 50 mls/hr Q20H IV 06/01/17 08:30 06/02/17 08:51 Pharmacy Profile Note 0 ml @ 0 mls/hr UNSCH OTHER 06/01/17 10:40 Potassium Chloride 100 ml @ 50 mls/hr Q2H PRN IV 06/01/17 10:30 Potassium Chloride 100 ml @ 50 mls/hr Q2H PRN IV 06/01/17 10:30 06/01/17 18:51 (K-Lyte Cl Eff) 50 meq UNSCH PRN PO 06/01/17 10:30 Potassium Chloride 100 ml @ 25 mls/hr UNSCH PRN IV 06/01/17 10:30 Potassium Chloride 100 ml @ 50 mls/hr Q2H PRN IV 06/01/17 10:30 Magnesium Sulfate 4 gm/Sodium Chloride 100 ml @ 50 mls/hr UNSCH PRN IV 06/01/17 10:30 (Mag-Ox) 800 mg UNSCH PRN PO 06/01/17 10:30 Magnesium Sulfate 2 gm/Sodium Chloride 100 ml @ 50 mls/hr UNSCH PRN IV 06/01/17 10:30 (K-Phos) 2,000 mg Q4H PRN PO 06/01/17 10:30 Sodium Phosphate 30 mmol/Sodium Chloride 250 ml @ 42 mls/hr UNSCH PRN IV 06/01/17 10:30 (K-Phos) 2,000 mg UNSCH PRN PO/TUBE 06/01/17 10:30 Potassium Phosphate 30 mmol/ Sodium Chloride 260 ml @ 42 mls/hr UNSCH PRN IV 06/01/17 10:30 Vancomycin HCl 1000 mg/Sodium Chloride 250 ml @ 250 mls/hr Q12H IV 06/01/17 12:00 06/02/17 11:42 Miscellaneous Information SPECIFIC LAB TO BE DRAWN:VANCOMYCIN TROUGH DATE TO... ONCE ONCE .XX 06/02/17 23:45 06/02/17 23:46 Norepinephrine Bitartrate 4 mg/ Sodium Chloride 250 ml @ 7.5 mls/hr TITRATE PRN IV 06/01/17 15:00 06/02/17 10:28 (Brethine Inj) 1 mg UNSCH PRN SQ 06/01/17 15:00 Acyclovir Sodium 557 mg/Sodium Chloride 100 ml @ 100 mls/hr Q8H IV 06/01/17 18:00 06/02/17 10:28 Ceftriaxone Sodium 2000 mg/ Sodium Chloride 100 ml @ 200 mls/hr Q12H IV 06/01/17 17:00 06/02/17 05:11 (Duoneb Neb) 1 ampule Q6HR NEB NEB 06/02/17 10:00 06/02/17 15:40 Allergies Allergies Coded Allergies penicillin G (Unverified Allergy, Severe, 02/08/17) Sulfa (Sulfonamide Antibiotics) (Unverified Allergy, Intermediate, 02/08/17) Exam I&O / VS 06/02/17 06/02/17 06/03/17 15:00 23:00 07:00 Intake Total 1341 ml Balance 1341 ml IV Total 1341 ml Vital Signs Date Time Temp Pulse Resp B/P (MAP) Pulse Ox O2 Delivery O2 Flow Rate FiO2 06/02/17 15:43 100 35 06/02/17 14:00 96 06/02/17 14:00 82 104/68 06/02/17 13:00 78 105/68 06/02/17 12:00 35 06/02/17 12:00 83 06/02/17 12:00 98.3 78 26 106/68 (81) 98 06/02/17 11:56 98 35 06/02/17 10:28 79 106/68 06/02/17 10:27 78 106/68 06/02/17 10:00 79 06/02/17 09:00 86 106/67 06/02/17 08:30 97 115/69 06/02/17 08:24 100 35 06/02/17 08:00 100 06/02/17 08:00 35 06/02/17 08:00 96 118/74 06/02/17 08:00 98.3 96 24 118/74 (89) 96 06/02/17 07:15 96 Mechanical Ventilator 40 06/02/17 06:00 84 06/02/17 05:00 80 110/71 06/02/17 04:12 98 35 06/02/17 04:00 66 12/7/17 04:00 35 06/02/17 04:00 97.7 84 17 90/61 (71) 97 06/02/17 02:00 68 06/02/17 02:00 88 110/68 06/02/17 01:40 99 35 06/02/17 01:00 75 95/65 06/02/17 00:00 99.0 66 17 91/60 (70) 97 06/02/17 00:00 66 06/02/17 00:00 35 06/01/17 23:05 66 87/59 06/01/17 22:00 68 06/01/17 20:50 82 89/61 06/01/17 20:50 99 35 06/01/17 20:00 98.3 74 18 87/52 (64) 96 06/01/17 20:00 74 06/01/17 20:00 35 06/01/17 19:55 74 87/56 06/01/17 18:00 85 06/01/17 16:54 96 35 Objective Radiology Results Last 48 hours Impressions Chest X-Ray 06/02/17 0000 Signed Impressions: Service Date/Time: May 07:11 - CONCLUSION: ET tube and NG tube both in good position. Mild interstitial prominence throughout the lungs. Mikey Salcedo MD Chest X-Ray 06/01/17 0000 Signed Impressions: Service Date/Time: Thursday, June 01, 2017 09:51 - CONCLUSION: 1. Satisfactory position of endotracheal and nasogastric tubes. 2. Persistent right lung airspace disease. Osmany Armenta MD Chest X-Ray 06/01/17 0000 Signed Impressions: Service Date/Time: Thursday, June 01, 2017 05:16 - CONCLUSION: New patchy opacity at the right lung base of concern for early pneumonia. Jose Miguel Watson MD Brain MRI 06/01/17 0000 Signed Impressions: Service Date/Time: Thursday, June 01, 2017 15:33 - CONCLUSION: 1. 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 Loss of volume suggests that this is a long-standing process. 2. Subtle cerebral white matter disease of uncertain etiology. Chronic ischemic versus inflammatory process should be considered. 3. No evidence of acute infarct, hemorrhage, intra-axial mass. 4. Mucosal inflammatory disease in the sphenoid sinus. Osmany Armenta MD Micro and Labs Laboratory Tests Test 06/01/17 17:54 06/02/17 04:59 White Blood Count 12.2 12.4 Red Blood Count 3.58 3.84 Hemoglobin 11.1 11.6 Hematocrit 33.3 35.5 Mean Corpuscular Volume 92.9 92.5 Mean Corpuscular Hemoglobin 31.0 30.2 Mean Corpuscular Hemoglobin Concent 33.3 32.7 Red Cell Distribution Width 14.4 14.2 Platelet Count 158 165 Mean Platelet Volume 8.7 8.9 Hematology Comments Neutrophils (%) (Auto) 90.6 Lymphocytes (%) (Auto) 6.0 Monocytes (%) (Auto) 3.0 Eosinophils (%) (Auto) 0.0 Basophils (%) (Auto) 0.4 Neutrophils # (Auto) 11.2 Lymphocytes # (Auto) 0.7 Monocytes # (Auto) 0.4 Eosinophils # (Auto) 0.0 Basophils # (Auto) 0.0 CBC Comment AUTO DIFF Differential Total Cells Counted 100 Neutrophils % (Manual) 59 Band Neutrophils % 32 Lymphocytes % 2 Monocytes % 6 Neutrophils # (Manual) 11.4 Metamyelocytes 1 Differential Comment FINAL DIFF MANUAL Toxic Vacuolation PRESENT Platelet Estimate NORMAL Platelet Morphology Comment NORMAL Date/Time Source Procedure Growth Status 05/31/17 00:20 Blood Peripheral Aerobic Blood Culture - Preliminary Staph Sp Coagulase Negative Resulted 05/31/17 00:20 Anaerobic Blood Culture - Preliminary Staph Sp Coagulase Negative Resulted 06/01/17 09:00 Cerebral Spinal Fluid Lumbar Puncture Gram Stain - Final Resulted 06/01/17 09:00 Cerebral Spinal Fluid Lumbar Puncture CSF Culture - Preliminary NO GROWTH IN 24 HOURS. Resulted 06/01/17 09:00 Sputum Endotracheal Gram Stain - Final Resulted 06/01/17 09:00 Sputum Endotracheal Sputum Culture - Preliminary HEAVY GROWTH NORMAL RESPIRATORY ADEBAYO... Resulted Documentation Reviewed: Reviewed old records Florentin Caicedo MD Jun 02, 2017 16:06
--- NOTE | 2017-06-02 16:08 | EKG ---
Date Performed: 06/01/2017 Time Performed: 14:50:22 PTAGE: 61 years EKG: Sinus rhythm with short W[place] interval. Left axis deviation Consider inferior ischemia. Lateral ST-T changes may be due to myocardial ischemia Low QRS voltages in limb leads Abnormal ECG PREVIOUS TRACING : 05/30/2017 23.46 DOCTOR: Rodney Suarez Interpretating Date/Time 06/02/2017 16:06:39
--- NOTE | 2017-06-02 19:06 | HHI.IDPN ---
Subjective Subjective Remarks delayed entry pt was seen earlier today remains on vent no fever 24 hr CSF clx negative L temporl lobe with Chronic ischemic versus inflammatory process on MRI Antibiotics CFTX vanco acyclovir Allergies: Coded Allergies: penicillin G (Unverified Allergy, Severe, 02/08/17) Sulfa (Sulfonamide Antibiotics) (Unverified Allergy, Intermediate, 02/08/17 ) Objective . Vital Signs Date Time Temp Pulse Resp B/P (MAP) Pulse Ox O2 Delivery O2 Flow Rate FiO2 06/02/17 18:00 80 06/02/17 16:00 98.4 82 26 104/65 (78) 96 06/02/17 16:00 35 06/02/17 16:00 82 06/02/17 15:43 100 35 06/02/17 14:00 96 06/02/17 14:00 82 104/68 06/02/17 13:00 78 105/68 06/02/17 12:00 35 06/02/17 12:00 83 06/02/17 12:00 98.3 78 26 106/68 (81) 98 06/02/17 11:56 98 35 06/02/17 10:28 79 106/68 06/02/17 10:27 78 106/68 06/02/17 10:00 79 06/02/17 09:00 86 106/67 06/02/17 08:30 97 115/69 06/02/17 08:24 100 35 06/02/17 08:00 100 06/02/17 08:00 35 06/02/17 08:00 96 118/74 06/02/17 08:00 98.3 96 24 118/74 (89) 96 06/02/17 07:15 96 Mechanical Ventilator 40 06/02/17 06:00 84 06/02/17 05:00 80 110/71 06/02/17 04:12 98 35 06/02/17 04:00 66 06/02/17 04:00 35 06/02/17 04:00 97.7 84 17 90/61 (71) 97 06/02/17 02:00 68 06/02/17 02:00 88 110/68 06/02/17 01:40 99 35 06/02/17 01:00 75 95/65 06/02/17 00:00 99.0 66 17 91/60 (70) 97 06/02/17 00:00 66 06/02/17 00:00 35 06/01/17 23:05 66 87/59 06/01/17 22:00 68 06/01/17 20:50 82 89/61 06/01/17 20:50 99 35 06/01/17 20:00 98.3 74 18 87/52 (64) 96 06/01/17 20:00 74 06/01/17 20:00 35 06/01/17 19:55 74 87/56 06/02/17 06/02/17 06/03/17 15:00 23:00 07:00 Intake Total 1341 ml 757 ml Output Total 995 ml Balance 1341 ml -238 ml IV Total 1341 ml 600 ml Tube Feeding 157 ml Output Urine Total 995 ml # Bowel Movements 1 . Laboratory Tests Test 06/01/17 17:54 06/02/17 04:59 White Blood Count 12.2 TH/MM3 12.4 TH/MM3 Red Blood Count 3.58 MIL/MM3 3.84 MIL/MM3 Hemoglobin 11.1 GM/DL 11.6 GM/DL Hematocrit 33.3 % 35.5 % Mean Corpuscular Volume 92.9 FL 92.5 FL Mean Corpuscular Hemoglobin 31.0 PG 30.2 PG Mean Corpuscular Hemoglobin Concent 33.3 % 32.7 % Red Cell Distribution Width 14.4 % 14.2 % Platelet Count 158 TH/MM3 165 TH/MM3 Mean Platelet Volume 8.7 FL 8.9 FL Hematology Comments Neutrophils (%) (Auto) 90.6 % Lymphocytes (%) (Auto) 6.0 % Monocytes (%) (Auto) 3.0 % Eosinophils (%) (Auto) 0.0 % Basophils (%) (Auto) 0.4 % Neutrophils # (Auto) 11.2 TH/MM3 Lymphocytes # (Auto) 0.7 TH/MM3 Monocytes # (Auto) 0.4 TH/MM3 Eosinophils # (Auto) 0.0 TH/MM3 Basophils # (Auto) 0.0 TH/MM3 CBC Comment AUTO DIFF Differential Total Cells Counted 100 Neutrophils % (Manual) 59 % Band Neutrophils % 32 % Lymphocytes % 2 % Monocytes % 6 % Neutrophils # (Manual) 11.4 TH/MM3 Metamyelocytes 1 % Differential Comment FINAL DIFF MANUAL Toxic Vacuolation PRESENT Platelet Estimate NORMAL Platelet Morphology Comment NORMAL Laboratory Tests Test 06/01/17 07:50 Blood Urea Nitrogen 15 MG/DL Creatinine 0.92 MG/DL Random Glucose 204 MG/DL Calcium Level 7.7 MG/DL Sodium Level 144 MEQ/L Potassium Level 3.1 MEQ/L Chloride Level 111 MEQ/L Carbon Dioxide Level 24.3 MEQ/L Anion Gap 9 MEQ/L Estimat Glomerular Filtration Rate 62 ML/MIN Thyroid Stimulating Hormone 3rd Gen 0.496 uIU/ML Microbiology Date/Time Source Procedure Growth Status 06/02/17 17:21 Blood Peripheral Aerobic Blood Culture Pending Received 06/02/17 17:21 Blood Peripheral Anaerobic Blood Culture Pending Received 06/02/17 17:15 Blood Peripheral Aerobic Blood Culture Pending Received 06/02/17 17:15 Blood Peripheral Anaerobic Blood Culture Pending Received 05/31/17 00:20 Blood Peripheral Aerobic Blood Culture - Preliminary Staph Sp Coagulase Negative Resulted 05/31/17 00:20 Anaerobic Blood Culture - Preliminary Staph Sp Coagulase Negative Resulted 05/31/17 00:15 Blood Peripheral Aerobic Blood Culture - Final Staph Sp Coagulase Negative Resulted 05/31/17 00:15 Anaerobic Blood Culture - Preliminary Staph Sp Coagulase Negative Resulted 06/01/17 09:00 Cerebral Spinal Fluid Lumbar Puncture Gram Stain - Final Resulted 06/01/17 09:00 Cerebral Spinal Fluid Lumbar Puncture CSF Culture - Preliminary NO GROWTH IN 24 HOURS. Resulted 06/01/17 09:00 Sputum Endotracheal Gram Stain - Final Resulted 06/01/17 09:00 Sputum Endotracheal Sputum Culture - Preliminary HEAVY GROWTH NORMAL RESPIRATORY A[facility]YO... Resulted Imaging Last Impressions Chest X-Ray 06/02/17 0000 Signed Impressions: Service Date/Time: May 07:11 - CONCLUSION: ET tube and NG tube both in good position. Mild interstitial prominence throughout the lungs. Mikey Salcedo MD Brain MRI 06/01/17 0000 Signed Impressions: Service Date/Time: Thursday, June 01, 2017 15:33 - CONCLUSION: 1. 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 Loss of volume suggests that this is a long-standing process. 2. Subtle cerebral white matter disease of uncertain etiology. Chronic ischemic versus inflammatory process should be considered. 3. No evidence of acute infarct, hemorrhage, intra-axial mass. 4. Mucosal inflammatory disease in the sphenoid sinus. Osmany Armenta MD Head CT 05/30/17 0000 Signed Impressions: Service Date/Time: Wednesday, May 31, 2017 00:29 - CONCLUSION: 1. No acute hemorrhage or mass effect. 2. Evidence of acute sinusitis involving the sphenoid sinus. Jose Miguel Watson MD Cervical Spine CT 05/30/17 0000 Signed Impressions: Service Date/Time: Wednesday, May 31, 2017 00:29 - CONCLUSION: Negative trauma CT. Jose Miguel Watson MD Physical Exam CONSTITUTIONAL/GENERAL: This is an adequately nourished patient, in no apparent distress. Sedated. Intubated . [facility]'n TUBES/LINES/DRAINS: SKIN: No jaundice, rashes, or lesions. Skin temperature appropriate. Not diaphoretic. EYES: Pupils equal and round and reactive. Extraocular motions intact. No scleral icterus. No injection or drainage. Fundi not examined. ENT: Hearing not tested. Nose without bleeding or purulent drainage. Throat without visible erythema, exudates, masses, or lesions. orally intubated NECK: Trachea midline. Supple, nontender. CARDIOVASCULAR: Regular rate and rhythm without murmurs, gallops, or rubs. No JVD. Peripheral pulses symmetric. RESPIRATORY/CHEST: Symmetric, unlabored respirations. Clear to auscultation. Breath sounds equal bilaterally. No wheezes, rales, or rhonchi. GASTROINTESTINAL: Abdomen soft, non-tender, nondistended. No hepato-splenomegaly , or palpable masses. No guarding. Bowel sounds present. GENITOURINARY: Without palpable bladder distension. Andrade catheter in place. MUSCULOSKELETAL: Extremities without clubbing, cyanosis, or edema. No joint tenderness or effusion noted. No calf tenderness. No mottling or clubbing. LYMPHATICS: No palpable cervical or supraclavicular adenopathy. NEUROLOGICAL: sedated , unresponsive PSYCHIATRIC:unable to assess Assessment & Plan Remarks sp seizure Acute VDRF Gram positive bacteremia, coag neg staph - likely contaminant Lymphocytic pleocytosis ? post ictal findings on MRI sugg possible infection cont current abx + fu CSF studies Bess Suarez MD Jun 02, 2017 19:06
[2017-06-02] MEDS: cloZAPine 100 MG TAB PO SCH (21:00)
[2017-06-02] MEDS ORDERED: PHARMACY ORDERED LAB ONE (23:45)
[2017-06-03] VITALS (18 sets, daily range): BP systolic 86–137; BP diastolic 57–82; PULSE 72–102; RESP 23–37; TEMP 98.8–101.2; O2SAT 90–99
[2017-06-03] MEDS: VANCOMYCIN 1,000 MG/NS 250 ML IV SCH ×6 (00:46→17:53)
[2017-06-03] MEDS: NS + KCL 20 MEQ INJ 1,000 ML IV SCH (02:00)
[2017-06-03] MEDS: SODIUM CHLORIDE 0.9% IV SCH ×3 (02:57→17:52)
[2017-06-03] MEDS: ACYCLOVIR IV SCH ×3 (02:57→17:52)
[2017-06-03] MEDS: RESP: ALBUTEROL 2.5 MG/IPRATROPIUM 0.5 MG NEB (SCH) NEB ×4 (04:03→21:06)
[2017-06-03] MEDS: PROPOFOL 1000 MG/100 ML INJ 100 ML IV PRN ×4 (04:15→21:00)
--- NOTE | 2017-06-03 05:44 | RADRPT ---
EXAM DATE/TIME: 06/03/2017 05:23 [place] COMPARISON: CHEST SINGLE AP, June 02, 2017, 7:11. INDICATIONS : OGT placement. MEDICAL HISTORY : Cardiovascular disease. Seizures. TBI. SURGICAL HISTORY : Hysterectomy. ENCOUNTER: Initial ACUITY: 1 day PAIN SCORE: Non-responsive. LOCATION: Bilateral chest FINDINGS: OG tube is noted. It extends beneath the diaphragm, distal tip directed cephalad at the expected loca tion the gastric cardia. Endotracheal tube in satisfactory position. There is mild interstitial promi nence and patchy proximal infiltrates unchanged. CONCLUSION: OG tube placement as above. Harshil Lantigua MD on June 03, 2017 at 5:42 Board Certified Radiologist. This report was verified electronically.
[2017-06-03] MEDS: cefTRIAXone INJ 2,000 MG in SODIUM CHLORIDE 0.9% INJ 100 ML IV SCH ×2 (05:50→17:53)
[2017-06-03] MEDS: LEVOTHYROXINE SODIUM 75 MCG TAB PO SCH (05:55)
[2017-06-03] MEDS: ACETAMINOPHEN 325 MG TAB PO PRN ×2 (05:55→16:26)
[2017-06-03 06:24] LABS: AUTOMATED NEUTROPHIL # 6.5 TH/MM3 (1.8-7.7); BASOPHIL % 0.1 % (0.0-2.0); HEMATOCRIT 32.4 % (35.0-46.0); LYMPH % 3.8 % (9.0-44.0); LYMPHOCYTE # 0.3 TH/MM3 (1.0-4.8); MEAN CELL VOLUME 92.8 FL (80.0-100.0); MEAN CORPUSCULAR HGB CONC 33.3 % (32.0-36.0); MONO % 4.3 % (0.0-8.0); NEUT % 91.8 % (16.0-70.0); PLATELET COUNT 175 TH/MM3 (150-450); RED BLOOD COUNT 3.49 MIL/MM3 (4.00-5.30); RED CELL DISTRIBUTION WIDTH 14.4 % (11.6-17.2); WHITE BLOOD COUNT 7.1 TH/MM3 (4.0-11.0)
[2017-06-03 06:28] LABS: HEMO FLAGS AUTO DIFF
[2017-06-03 08:13] LABS: PLATELET ESTIMATE SMEAR NORMAL (NORMAL); PLATELET MORPHOLOGY NORMAL (NORMAL); SCAN/DIFF AUTO DIFF CONFIRMED
[2017-06-03 08:35] LABS: HSV 1,PCR Negative (Negative)
[2017-06-03] MEDS: CHLORHEXIDINE 0.12% (ORAL KIT) 15 ML CUP MT SCH ×3 (09:04→20:59)
[2017-06-03] MEDS: levETIRAcetam INJ 100 ML IV SCH ×2 (09:05→20:58)
[2017-06-03] MEDS: FAMOTIDINE 20 MG TAB PO SCH ×2 (09:05→20:59)
[2017-06-03] MEDS: CHOLECALCIFEROL (VIT D3) 400 UNIT TAB PO SCH (09:05)
[2017-06-03] MEDS: GABAPENTIN 100 MG CAP PO SCH ×3 (09:05→17:54)
[2017-06-03] MEDS: TRIFLUOPERAZINE 1 MG PO SCH ×2 (09:05→20:59)
[2017-06-03] MEDS: SODIUM CHLORIDE 0.9% FLUSH 10 ML FLUSH IV FLUSH SCH ×2 (09:06→20:58)
--- NOTE | 2017-06-03 09:12 | PD.CONS ---
HPI Service neurosurgery Consult Requested By Dr Caicedo Reason for Consult encephalocele Primary Care Physician Unknown History of Present Illness This is a 61 year old female admotted with alteresmental status. Patient herself is not given any history. History from ER communication, and review of medical records. She was brought in by [facility] for evaluation after fall and possible seizure. She was found postictal at [facility]. She was incontinent of urine. O2 sat were 86% on room air. History is limited as she is intubated. She has history of schizophrenia and seizure disorder. She was found to have rectal temperature of 101. CT brain showed encephalocele. Neurosurgery consultation was requested Review of Systems Unknown and unobtainable due to her clinical condition. Past Family Social History Allergies: Coded Allergies: penicillin G (Unverified Allergy, Severe, 02/08/17) Sulfa (Sulfonamide Antibiotics) (Unverified Allergy, Intermediate, 02/08/17 ) Past Medical History Seizures Hypothyroidism COPD Schizophrenia Past Surgical History CHOLECYSTECTOMY hysterectomy Active Ordered Medications Current Medications Sodium Chloride (NS Flush) 2 ml UNSCH PRN IVF FLUSH AFTER USING IV ACCESS; Start 05/31/17 at 00:00; Status Cancel Sodium Chloride 1,000 ml @ 999 mls/hr BOLUS ONCE IV Last administered on 05/31 00:15; Start 05/31/17 at 00:15; Stop 05/31/17 at 01:15; Status DC Acetaminophen (Tylenol Supp) 650 mg ONCE ONCE RECTAL Last administered on 05/31 00:49; Start 05/31/17 at 00:15; Stop 05/31/17 at 00:16; Status DC Clindamycin Phosphate/Dextrose 50 ml @ 100 mls/hr ONCE ONCE IV ; Start at 01:30; Stop 05/31/17 at 01:59; Status Cancel Sodium Chloride (NS Flush) 2 ml UNSCH PRN IV FLUSH FLUSH AFTER USING IV ACCESS ; Start 05/31/17 at 01:30 Sodium Chloride (NS Flush) 2 ml BID IV FLUSH Last administered on 06/02/17 00: 40; Start 05/31/17 at 09:00 Naloxone HCl (Narcan Inj) 0.4 mg UNSCH PRN IV PUSH SEE LABEL COMMENTS; Start 05/31/17 at 01:30 Lorazepam (Ativan Inj) 1 mg Q15M PRN IV PUSH seizures; Start 05/31/17 at 01:30 Clindamycin/ Sodium Chloride 50 ml @ 100 mls/hr Q6H IV Last administered on 14:09; Start 05/31/17 at 08:00; Stop 06/01/17 at 16:22; Status DC Famotidine (Pepcid) 20 mg Q12HR PO Last administered on 06/02/17 08:51; Start 05/31/17 at 09:00 Clindamycin Phosphate 900 mg/ Sodium Chloride 56 ml @ 112 mls/hr ONCE ONCE IV Last administered on 05/31/17 02:10; Start 05/31/17 at 02:00; Stop 05/31/17 at 02:29; Status DC Enoxaparin Sodium (Lovenox Inj) 40 mg Q24H SQ Last administered on 05/31/17 09 :56; Start 05/31/17 at 09:00; Stop 06/01/17 at 08:30; Status DC Levetriacetam (Keppra) 1,000 mg BID PO Last administered on 05/31/17 20:52; Start 05/31/17 at 09:00; Stop 05/31/17 at 21:55; Status DC Levetriacetam 100 ml @ 400 mls/hr BOLUS ONCE IV Last administered on 04:28; Start 05/31/17 at 03:45; Stop 05/31/17 at 03:59; Status DC Lorazepam (Ativan Inj) 1 mg Q4H PRN IV AGITATION Last administered on 09:13; Start 05/31/17 at 09:00; Stop 05/31/17 at 09:15; Status DC Lorazepam (Ativan Inj) 1 mg Q4H PRN IV PUSH AGITATION Last administered on 05/31 20:54; Start 05/31/17 at 09:30 Haloperidol Lactate (Haldol Inj) 2 mg Q4H PRN IM SEVERE AGITATION Last administered on 05/31/17 20:53; Start 05/31/17 at 10:15 Cholecalciferol (Vitamin D3) 400 units DAILY PO Last administered on 06/02/17 08:51; Start 06/01/17 at 09:00 Clozapine (Clozaril) 400 mg HS PO Last administered on 06/01/17 20:11; Start 05/31/17 at 21:00 Gabapentin (Neurontin) 100 mg TID PO Last administered on 06/02/17 18:11; Start 05/31/17 at 13:00 Levothyroxine Sodium (Synthroid) 75 mcg DAILY@0600 PO Last administered on 06/03 05:55; Start 06/01/17 at 06:00 Non-Formulary Medication 2 mg BID PO Last administered on 06/02/17 08:51; Start 05/31/17 at 21:00 Potassium Chloride/Dextrose/ Sod Cl 1,000 ml @ 100 mls/hr Q10H IV Last administered on 06/01/17 00:00; Start 05/31/17 at 14:00; Stop 06/01/17 at 08:30 ; Status DC Acetaminophen (Tylenol) 650 mg Q4H PRN PO Temp > 100.4 Last administered on 05:55; Start 05/31/17 at 13:30 Ondansetron HCl (Zofran Inj) 4 mg Q6H PRN IV PUSH NAUSEA; Start 05/31/17 at 13: 30 Levetriacetam 100 ml @ 400 mls/hr Q12HR IV Last administered on 06/02/17 23: 02; Start 06/01/17 at 09:00 Levetriacetam 100 ml @ 400 mls/hr BOLUS ONCE IV Last administered on 23:46; Start 05/31/17 at 22:00; Stop 05/31/17 at 22:14; Status DC Flumazenil (Romazicon Inj) 0.5 mg STK-MED ONCE .ROUTE ; Start 05/31/17 at 22:27 ; Stop 05/31/17 at 22:28; Status DC Midazolam HCl (Versed Inj) 5 mg ONCE ONCE IV PUSH Last administered on 08:35; Start 06/01/17 at 08:15; Stop 06/01/17 at 08:18; Status DC Rocuronium Coy (Zemuron Inj) 50 mg BOLUS ONCE IV Last administered on 06/01 08:40; Start 06/01/17 at 08:15; Stop 06/01/17 at 08:18; Status DC Chlorhexidine Gluconate (Peridex 0.12% Liq) 15 ml BID@08,20 MT Last administered on 06/02/17 20:00; Start 06/01/17 at 20:00 Propofol 100 ml @ 1.671 mls/ hr TITRATE PRN IV SEDATION Last administered on 06/03/17 04:15; Start 06/01/17 at 08:30 Potassium Chloride/Sodium Chloride 1,000 ml @ 50 mls/hr Q20H IV Last administered on 06/03/17 02:00; Start 06/01/17 at 08:30 Pharmacy Profile Note 0 ml @ 0 mls/hr UNSCH OTHER ; Start 06/01/17 at 10:40 Potassium Chloride 100 ml @ 50 mls/hr Q2H PRN IV For Potassium 2.8 - 3.2 mEq/L ; Start 06/01/17 at 10:30 Potassium Chloride 100 ml @ 50 mls/hr Q2H PRN IV For Potassium 2.8 - 3.2 mEq/ L Last administered on 06/01/17 18:51; Start 06/01/17 at 10:30 Potassium Bicarb/ Potassium Chloride (K-Lyte Cl Eff) 50 meq UNSCH PRN PO For Potassium 3.3 - 3.5 mEq/L; Start 06/01/17 at 10:30 Potassium Chloride 100 ml @ 25 mls/hr UNSCH PRN IV For Potassium 3.3 - 3.5 mEq /L; Start 06/01/17 at 10:30 Potassium Chloride 100 ml @ 50 mls/hr Q2H PRN IV For Potassium 3.3 - 3.5 mEq/L ; Start 06/01/17 at 10:30 Magnesium Sulfate 4 gm/Sodium Chloride 100 ml @ 50 mls/hr UNSCH PRN IV For Magnesium 0.9 - 1.1 mg/dL; Start 06/01/17 at 10:30 Magnesium Oxide (Mag-Ox) 800 mg UNSCH PRN PO For Magnesium 1.2 - 1.6 mg/dL; Start 06/01/17 at 10:30 Magnesium Sulfate 2 gm/Sodium Chloride 100 ml @ 50 mls/hr UNSCH PRN IV For Magnesium 1.2 - 1.6 mg/dL; Start 06/01/17 at 10:30 Potassium Phosphate (K-Phos) 2,000 mg Q4H PRN PO For Phosphorus < 2.5 mg/dL; Start 06/01/17 at 10:30 Sodium Phosphate 30 mmol/Sodium Chloride 250 ml @ 42 mls/hr UNSCH PRN IV For Phosphorus < 2.5 mg/dL; Start 06/01/17 at 10:30 Potassium Phosphate (K-Phos) 2,000 mg UNSCH PRN PO/TUBE SEE LABEL COMMENTS; Start 06/01/17 at 10:30 Potassium Phosphate 30 mmol/ Sodium Chloride 260 ml @ 42 mls/hr UNSCH PRN IV SEE LABEL COMMENTS; Start 06/01/17 at 10:30 Vancomycin HCl 1000 mg/Sodium Chloride 250 ml @ 250 mls/hr Q12H IV Last administered on 06/03/17 00:46; Start 06/01/17 at 12:00 Miscellaneous Information SPECIFIC LAB TO BE DRAWN:VANCOMYCIN TROUGH DATE TO... ONCE ONCE .XX Last administered on 06/02/17 23:45; Start 06/02/17 at 23:45; Stop 06/02/17 at 23:46; Status DC Norepinephrine Bitartrate 4 mg/ Sodium Chloride 250 ml @ 7.5 mls/hr TITRATE PRN IV Blood pressure management Last administered on 06/02/17 10:28; Start at 15:00 Terbutaline Sulfate (Brethine Inj) 1 mg UNSCH PRN SQ For Extravasation; Start 06/01/17 at 15:00 Acyclovir Sodium 557 mg/Sodium Chloride 100 ml @ 100 mls/hr Q8H IV Last administered on 06/03/17 02:57; Start 06/01/17 at 18:00 Ceftriaxone Sodium 2000 mg/ Sodium Chloride 100 ml @ 200 mls/hr Q12H IV Last administered on 06/03/17 05:50; Start 06/01/17 at 17:00 Albuterol/ Ipratropium (Duoneb Neb) 1 ampule Q6HR NEB NEB Last administered on 06/03/17 04:03; Start 06/02/17 at 10:00 Family History Unknown and unobtainable due to her clinical condition. Social History Unknown and unobtainable due to her clinical condition. Physical Exam Vital Signs Vital Signs Date Time Temp Pulse Resp B/P (MAP) Pulse Ox O2 Delivery O2 Flow Rate FiO2 06/03/17 08:15 99 45 06/03/17 06:00 90 06/03/17 04:05 98 50 06/03/17 04:00 101.1 84 29 101/62 (75) 96 06/03/17 04:00 35 06/03/17 04:00 84 06/03/17 02:00 102 06/03/17 00:28 93 35 06/03/17 00:00 99.5 94 37 115/65 (82) 90 06/03/17 00:00 94 06/03/17 00:00 35 06/02/17 22:00 104 06/02/17 21:19 98 35 06/02/17 20:00 86 06/02/17 20:00 35 06/02/17 20:00 99.0 86 27 112/70 (84) 100 06/02/17 19:00 96 Mechanical Ventilator 35 06/02/17 18:00 80 06/02/17 16:00 98.4 82 26 104/65 (78) 96 06/02/17 16:00 35 06/02/17 16:00 82 06/02/17 15:43 100 35 06/02/17 14:00 96 06/02/17 14:00 82 104/68 06/02/17 13:00 78 105/68 06/02/17 12:00 35 06/02/17 12:00 83 06/02/17 12:00 98.3 78 26 106/68 (81) 98 06/02/17 11:56 98 35 06/02/17 10:28 79 106/68 06/02/17 10:27 78 106/68 06/02/17 10:00 79 Physical Exam The patient is intubated and sedated. Localizes to painful stimulii with all 4 extremities. Cranial Nerves: Pupils equal, round, reactive to light. Eyes appear conjugated. There was no nystagmus, no papilledema. Face musculature appeared symmetrical at rest. Face sensation, olfaction, visual walsh, and hearing cannot be adequately assessed due to his neurological condition. The patient has a corneal reflex. He has a gag reflex. The sternocleidomastoid and trapezius are symmetrical. Cervical Spine: His neck is soft, supple, without nuchal rigidity. Motor: His muscle tone and bulk are normal. He moves purposefully all 4 extremities symmetrically. Reflexes: Deep tendon reflexes are 1+ and symmetrical in the biceps, triceps, and brachioradialis, bilaterally, in the upper extremities. In the lower extremities, the patellar and ankles are 1+, bilaterally. There is a bilateral plantar flexion response. There is no clonus or other abnormal reflexes noted. Sensory: On examination there is response to painful stimuli, localizing with both upper and lower extremities. Cerebellar: Examination cannot be adequately assessed due to the patient's neurological condition. Laboratory Laboratory Tests Test 06/02/17 23:45 06/03/17 05:57 06/03/17 05:58 Vancomycin Level Trough 6.7 White Blood Count 7.1 Red Blood Count 3.49 Hemoglobin 10.8 Hematocrit 32.4 Mean Corpuscular Volume 92.8 Mean Corpuscular Hemoglobin 31.0 Mean Corpuscular Hemoglobin Concent 33.3 Red Cell Distribution Width 14.4 Platelet Count 175 Mean Platelet Volume 8.7 Neutrophils (%) (Auto) 91.8 Lymphocytes (%) (Auto) 3.8 Monocytes (%) (Auto) 4.3 Eosinophils (%) (Auto) 0.0 Basophils (%) (Auto) 0.1 Neutrophils # (Auto) 6.5 Lymphocytes # (Auto) 0.3 Monocytes # (Auto) 0.3 Eosinophils # (Auto) 0.0 Basophils # (Auto) 0.0 CBC Comment AUTO DIFF Differential Comment AUTO DIFF CONFIRMED Platelet Estimate NORMAL Platelet Morphology Comment NORMAL Red Cell Morphology Comment NORMAL Creatinine 0.63 Estimat Glomerular Filtration Rate 97 Date/Time Source Procedure Growth Status 06/02/17 17:21 Blood Peripheral Aerobic Blood Culture Pending Received 06/02/17 17:21 Blood Peripheral Anaerobic Blood Culture Pending Received 06/01/17 09:00 Cerebral Spinal Fluid Lumbar Puncture Gram Stain - Final Resulted 06/01/17 09:00 Cerebral Spinal Fluid Lumbar Puncture CSF Culture - Preliminary NO GROWTH IN 48 HOURS. Resulted 06/01/17 09:00 Sputum Endotracheal Gram Stain - Final Resulted 06/01/17 09:00 Sputum Endotracheal Sputum Culture - Preliminary HEAVY GROWTH NORMAL RESPIRATORY ADEBAYO... Resulted Result Diagram: 06/03/17 0557 06/03/17 0558 Imaging Last 48 hours Impressions Chest X-Ray 06/03/17 0000 Signed Impressions: Service Date/Time: Saturday, June 03, 2017 05:23 - CONCLUSION: OG tube placement as above. Harshil Lantigua MD Chest X-Ray 06/02/17 0000 Signed Impressions: Service Date/Time: May 07:11 - CONCLUSION: ET tube and NG tube both in good position. Mild interstitial prominence throughout the lungs. Mikey Salcedo MD Assessment and Plan Assessment and Plan Septic Shock Reassessment Septic Shock Reassessment Caprini VTE Risk Assessment Caprini VTE Risk Assessment Caprini VTE Risk Assessment: Mod/High Risk (score >= 2) Caprini Risk Assessment Model Point Value = 1 Point Value = 2 Point Value = 3 Point Value = 5 Age 41-60 Minor surgery BMI > 25 kg/m2 Swollen legs Varicose veins or History of unexplained or recurrent spontaneous Oral contraceptives or hormone replacement Sepsis (< 1 month) Serious lung disease, including pneumonia (< 1 month) Abnormal pulmonary function Acute myocardial infarction Congestive heart failure (< 1 month) History of inflammatory bowel disease Medical patient at bed rest Age 61-74 Arthroscopic surgery Major open surgery (> 45 min) Laparoscopic surgery (> 45 min) Malignancy Confined to bed (> 72 hours) Immobilizing plaster cast Central venous access Age >= 75 History of VTE Family history of VTE Factor V Leiden Prothrombin [id number] Lupus anticoagulant Anticardiolipin antibodies Elevated serum homocysteine Heparin-induced thrombocytopenia Other congenital or acquired thrombophilia Stroke (< 1 month) Elective arthroplasty Hip, pelvis, or leg fracture Acute spinal cord injury (< 1 month) Prophylaxis Regimen Total Risk Factor Score Risk Level Prophylaxis Regimen 0-1 Low Early ambulation 2 Moderate Order ONE of the following: *Sequential Compression Device (SCD) *Heparin 5000 units SQ BID 3-4 Higher Order ONE of the following medications: *Heparin 5000 units SQ TID *Enoxaparin/Lovenox 40 mg SQ daily (WT < 150 kg, CrCl > 30 mL/min) *Enoxaparin/Lovenox 30 mg SQ daily (WT < 150 kg, CrCl > 10-29 mL/min) *Enoxaparin/Lovenox 30 mg SQ BID (WT < 150 kg, CrCl > 30 mL/min) AND/OR *Sequential Compression Device (SCD) 5 or more Highest Order ONE of the following medications: *Heparin 5000 units SQ TID (Preferred with Epidurals) *Enoxaparin/Lovenox 40 mg SQ daily (WT < 150 kg, CrCl > 30 mL/min) *Enoxaparin/Lovenox 30 mg SQ daily (WT < 150 kg, CrCl > 10-29 mL/min) *Enoxaparin/Lovenox 30 mg SQ BID (WT < 150 kg, CrCl > 30 mL/min) AND *Sequential Compression Device (SCD) Attending Statement Altered mental status likely secondary to recurrent seizures and postictal state. sepsis Possible aspiration neuro checks in a serial fashion. No surgical intervention is needed for the encephalocele Seizures. EEG. Defer management to neurology. Seizure precautions. Ativan 1 mg IV every 15 minutes when necessary for seizures. suspected aspiration .. Continue aggressive pulmonary toilette, nasotracheal suction, and breathing treatments with nebulizers. Nutrition. NPO Renal. monitor closely urine output, BUN and creatinine Endocrine. Monitor serial Acu checks and SSI as needed in detail ID IV antbiotics. Defer to infectious disease Protonix for stress ulcer prophylaxis Sergio fisher and SCD's for DVT prophylaxis. Lázaro Beaver MD Jun 03, 2017 09:12
--- NOTE | 2017-06-03 11:51 | HHI.CCPN ---
Subjective Remarks/Hospital Course 61 y/o woman found down after a probable seizure at a local care home. Remains obtunded. Gas exchange acceptable but airway control marginal. Neurology Service requests MRI which will require intubation and mechanical ventilation for airway control. EEG this morning with no seizures. 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 High airway pressures after aspiration pneumonitis (aspirated prior to intubation). Remains largely obtunded. 06/03 SBT today with attempt to wean and extubate failed due to rapid shallow breathing. No other events overnight Objective Vital Signs Date Time Temp Pulse Resp B/P (MAP) Pulse Ox O2 Delivery O2 Flow Rate FiO2 06/03/17 08:15 99 45 06/03/17 06:00 90 06/03/17 04:00 101.1 29 101/62 (75) 06/02/17 19:00 Mechanical Ventilator 06/01/17 07:00 20.00 Intake and Output 06/03/17 06/03/17 06/04/17 08:00 16:00 00:00 Intake Total 667 ml Output Total 1000 ml Balance -333 ml Result Diagram: 06/03/17 0557 06/03/17 0558 Imaging Last 24 hours Impressions Chest X-Ray 06/03/17 0000 Signed Impressions: Service Date/Time: Saturday, June 03, 2017 05:23 - CONCLUSION: OG tube placement as above. Harshil Lantigua MD Objective Remarks Gen: Obtunded. Unresponsive. Head: Atraumatic. Lungs: Diffuse rhonchi, wheezes moderate. Acceptable air movement. Heart: NL S1S2, no JVD. Abdomen: Benign, soft, no guarding. BS active. Extremities: Warm, well perfused. Neuro: Withdraws 4 limbs to noxious stimulation. Pupils 2 mm, reactive. Weak cough reflex. No purposeful movement. A/P Assessment and Plan Assessment and Plan Seizures: Breakthrough seizure, Altered mental status likely secondary to postictal state vs viral SCALLOP CUTTER MACHINE infection. Antiviral and antibiotics per ID recommendation Schizophrenia Infectious Disease: Fever 101 on presentation. Likely from sinusitis. Blood cultures Stap X 3/4 bottles. Narrowed to Vancomycin by ID Service. Add Vancomycin for health care exposure Respiratory Failure: Hypoxemia and aspiration prior to intubation (not ventilator associated). Coarse breath sounds persist on exam. Chest x-ray RML pneumonitis. - PRVC vent mode, intubated 06/01. Persistently elevated airway pressures. Improved oxygen demand and PEEP. Hypothyroidism: - Continue Synthroid. Check TSH -> NL Overall impression: Critically ill with deteriorating LOC and unable to protect airway. Aspiration pneumonitis. Required intubation and mechanical ventilation. Pulmonary status deteriorating. Critical Care: The total critical care time was 35 minutes. Time to perform other separately billable procedures was not included in the critical care time. Teddy Guan MD Jun 03, 2017 11:51
[2017-06-03] MEDS ORDERED: POTASSIUM CHLOR 40 MEQ PREMIX 100 ML IV PRN ×2 (12:00)
[2017-06-03] MEDS ORDERED: POTASSIUM PHOSPHATE INJ 30 MMOL in SODIUM CHLOR 0.9% 250 ML INJ 250 ML IV PRN (12:00)
[2017-06-03] MEDS ORDERED: POTASSIUM CHLOR 20 MEQ PREMIX 100 ML IV PRN (12:00)
[2017-06-03] MEDS ORDERED: MAGNESIUM OXIDE 400 MG TAB PO PRN (12:00)
[2017-06-03] MEDS ORDERED: POTASSIUM CHLORIDE 25 MEQ EFFERVESCENT TAB PO PRN (12:00)
[2017-06-03] MEDS ORDERED: MAGNESIUM SULFATE INJ 2 GM in SODIUM CHLORIDE 0.9% INJ 96 ML IV PRN (12:00)
[2017-06-03] MEDS ORDERED: SODIUM PHOSPHATE INJ 30 MMOL in SODIUM CHLOR 0.9% 250 ML INJ 240 ML IV PRN (12:00)
[2017-06-03] MEDS ORDERED: MAGNESIUM SULFATE INJ 4 GM in SODIUM CHLORIDE 0.9% INJ 92 ML IV PRN (12:00)
[2017-06-03] MEDS ORDERED: POTASSIUM PHOSPHATE MONOBASIC 500 MG TAB PO PRN (12:00)
[2017-06-03] MEDS ORDERED: POTASSIUM PHOSPHATE MONOBASIC 500 MG TAB PO/TUBE PRN (12:00)
[2017-06-03 12:57] LABS: BICARBONATE 22.1 MEQ/L (21.0-32.0); POTASSIUM 3.6 MEQ/L (3.5-5.1)
[2017-06-03] MEDS: cloZAPine 100 MG TAB PO SCH (21:00)
[2017-06-04] VITALS (18 sets, daily range): BP systolic 94–128; BP diastolic 61–78; PULSE 70–96; RESP 16–34; TEMP 98.6–100.9; O2SAT 92–100
[2017-06-04] MEDS: NS + KCL 20 MEQ INJ 1,000 ML IV SCH ×2 (01:20→21:19)
[2017-06-04] MEDS: VANCOMYCIN 1,000 MG/NS 250 ML IV SCH ×6 (01:21→18:06)
[2017-06-04] MEDS: PROPOFOL 1000 MG/100 ML INJ 100 ML IV PRN ×2 (01:45→11:07)
[2017-06-04] MEDS: ACETAMINOPHEN 325 MG TAB PO PRN (03:19)
[2017-06-04] MEDS: RESP: ALBUTEROL 2.5 MG/IPRATROPIUM 0.5 MG NEB (SCH) NEB ×4 (03:48→20:34)
[2017-06-04 04:50] LABS: BLOOD GAS CARBOXYHEMOGLOBIN 0.8 % (0-4); BLOOD GAS HCO3 25 mmol/L (22-26); BLOOD GAS METHEMOGLOBIN 1.3 % (0-2); BLOOD GAS O2 HGB SATURATION 92 % (90-100); BLOOD GAS OXYGEN CONTENT 15.7 Vol % (12.0-20.0); BLOOD GAS PCO2 41 mmHg (38-42); BLOOD GAS PO2 68 mmHg (61-120); BLOOD GAS TOTAL HGB 12.2 G/DL (12.0-16.0); CRITICAL VALUE NO; OXYGEN DEVICE VENTILATOR; TEMP CORR TO 98.6
[2017-06-04 04:51] LABS: DRAW SITE RT RADIAL; FIO2 40 %; NUMBER OF ARTERIAL PUNCTURES 1; STAT NO; ULNAR PULSE PRESENT; VENT SETTINGS PRVC/AC
[2017-06-04 04:56] LABS: AUTOMATED NEUTROPHIL # 5.4 TH/MM3 (1.8-7.7); BASOPHIL % 0.1 % (0.0-2.0); HEMATOCRIT 29.7 % (35.0-46.0); LYMPH % 5.1 % (9.0-44.0); LYMPHOCYTE # 0.3 TH/MM3 (1.0-4.8); MEAN CELL VOLUME 92.2 FL (80.0-100.0); MEAN CORPUSCULAR HGB CONC 33.7 % (32.0-36.0); MONO % 4.2 % (0.0-8.0); NEUT % 90.6 % (16.0-70.0); PLATELET COUNT 166 TH/MM3 (150-450); RED BLOOD COUNT 3.22 MIL/MM3 (4.00-5.30); RED CELL DISTRIBUTION WIDTH 14.6 % (11.6-17.2); WHITE BLOOD COUNT 5.9 TH/MM3 (4.0-11.0)
[2017-06-04 05:01] LABS: HEMO FLAGS AUTO DIFF
[2017-06-04] MEDS: LEVOTHYROXINE SODIUM 75 MCG TAB PO SCH (05:22)
[2017-06-04 05:26] LABS: BICARBONATE 26.2 MEQ/L (21.0-32.0); CALCIUM-PROTEIN CORRECTED 8.1 MG/DL (8.5-10.1); MAGNESIUM 2.2 MG/DL (1.5-2.5); POTASSIUM 3.4 MEQ/L (3.5-5.1); TOTAL BILIRUBIN ADULT 0.2 MG/DL (0.2-1.0)
[2017-06-04 05:30] LABS: BASOPHILS 1 % (0-2)
[2017-06-04 05:31] LABS: BANDS 6 % (0-6); DOHLE BODIES PRESENT (NONE SEEN); NEUTROPHIL # MANUAL DIFF 5.4 TH/MM3 (1.8-7.7); POLYS (SEG NEUTROPHILS) 86 % (16-70); SCAN/DIFF FINAL DIFF MANUAL; WBC DIFF SAMPLE 100
[2017-06-04 05:33] LABS: HELMET CELLS OCC (NORMAL); PLATELET ESTIMATE SMEAR NORMAL (NORMAL); PLATELET MORPHOLOGY NORMAL (NORMAL)
--- NOTE | 2017-06-04 05:58 | RADRPT ---
EXAM DATE/TIME: 06/04/2017 05:02 [facility] COMPARISON: CHEST SINGLE AP, June 03, 2017, 5:23. INDICATIONS : Respiratory failure. MEDICAL HISTORY : Cardiovascular disease. Seizures. TBI. SURGICAL HISTORY : Hysterectomy. ENCOUNTER: Subsequent ACUITY: 4 - 6 days PAIN SCORE: Non-responsive. LOCATION: Bilateral chest FINDINGS: Endotracheal tube and NG tube identified. There is patchy airspace disease bilaterally, not significa nt changed. Cardiomegaly. Osseous structures are intact. CONCLUSION: No significant change has occurred. Harshil Lantigua MD on June 04, 2017 at 5:56 Board Certified Radiologist. This report was verified electronically.
[2017-06-04] MEDS: levETIRAcetam INJ 100 ML IV SCH ×2 (08:55→21:19)
[2017-06-04] MEDS: TRIFLUOPERAZINE 1 MG PO SCH ×2 (08:56→21:00)
[2017-06-04] MEDS: GABAPENTIN 100 MG CAP PO SCH ×3 (08:57→18:06)
[2017-06-04] MEDS: CHOLECALCIFEROL (VIT D3) 400 UNIT TAB PO SCH (08:57)
[2017-06-04] MEDS: FAMOTIDINE 20 MG TAB PO SCH ×2 (08:57→21:20)
[2017-06-04] MEDS: SODIUM CHLORIDE 0.9% FLUSH 10 ML FLUSH IV FLUSH SCH ×2 (09:00→21:20)
[2017-06-04] MEDS ORDERED: PHARMACY ORDERED LAB ONE (09:45)
--- NOTE | 2017-06-04 13:45 | HHI.CCPN ---
Subjective Remarks/Hospital Course 61 y/o woman found down after a probable seizure at a local assisted. Remains obtunded. Gas exchange acceptable but airway control marginal. Neurology Service requests MRI which will require intubation and mechanical ventilation for airway control. EEG this morning with no seizures. 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 High airway pressures after aspiration pneumonitis (aspirated prior to intubation). Remains largely obtunded. 06/03 SBT today with attempt to wean and extubate failed due to rapid shallow breathing. No other events overnight 06/04: still encephalopathic. rapid breathing persists. discussed with family member today who states she had a very poor quality of life in the nursing home she is in, and they are not sure how much aggressive treatment she would want if they knew her prognosis was poor. Objective Vital Signs Date Time Temp Pulse Resp B/P (MAP) Pulse Ox O2 Delivery O2 Flow Rate FiO2 06/04/17 11:48 96 40 06/04/17 10:00 92 06/04/17 08:00 99.0 26 128/78 (95) 06/04/17 07:00 Mechanical Ventilator 06/03/17 19:00 20.00 Intake and Output 06/04/17 06/04/17 06/05/17 08:00 16:00 00:00 Intake Total 2365.9 ml Output Total 900 ml Balance 1465.9 ml Result Diagram: 06/04/17 0425 06/04/17 0425 Other Results Laboratory Tests Test 06/04/17 04:40 Blood Gas Puncture Site RT RADIAL Blood Gas Patient Temperature 98.6 Blood Gas HCO3 25 mmol/L (22-26) Blood Gas Base Excess 1.0 mmol/L (-2-2) Blood Gas Oxygen Saturation 92 % (90-100) Arterial Blood pH 7.40 (7.380-7.420) Arterial Blood Partial Pressure CO2 41 mmHg (38-42) Arterial Blood Partial Pressure O2 68 mmHg (61-120) Arterial Blood Oxygen Content 15.7 Vol % (12.0-20.0) Arterial Blood Carboxyhemoglobin 0.8 % (0-4) Arterial Blood Methemoglobin 1.3 % (0-2) Blood Gas Hemoglobin 12.2 G/DL (12.0-16.0) Oxygen Delivery Device VENTILATOR Blood Gas Ventilator Setting PRVC/AC Blood Gas Inspired Oxygen 40 % Imaging Last 24 hours Impressions Chest X-Ray 06/03/17 0000 Signed Impressions: Service Date/Time: Saturday, June 03, 2017 05:23 - CONCLUSION: OG tube placement as above. Harshil Lantigua MD Objective Remarks Gen: Obtunded. Unresponsive. Head: Atraumatic. Lungs: equal chest rise. tachypneic. Acceptable air movement. Heart: RRR, no JVD. Abdomen: Benign, soft, no guarding. Extremities: Warm, well perfused. Neuro: Withdraws 4 limbs to noxious stimulation. Pupils 2 mm, reactive. Weak cough reflex. No purposeful movement. A/P Assessment and Plan Assessment and Plan: 61yF with schizophrenia who presents with acute encephalopathy and possible encephalitis with secondary bacterial pneumonia. continues to be encephalopathic. will again hold as many long-acting sedating drugs as possible, however, patient is on a number of anti-psychotics which we need to continue for her underlying disease processes. Remains critically ill with encephalopathy which has not improved and led to her respiratory failure. off pathway. Seizures: Breakthrough seizure, Altered mental status likely secondary to postictal state vs viral STORE MGR infection. Antiviral and antibiotics per ID recommendation Schizophrenia continue home meds Acute encephalopathy frequent neuro checks transition to precedex from propofol Infectious Disease: Fever 101 on presentation. Likely from sinusitis. Blood cultures Stap X 3/4 bottles. Narrowed to Vancomycin by ID Service. Add Vancomycin for health care exposure Acute hypoxic and hypercarbic Respiratory Failure: Hypoxemia and aspiration prior to intubation (not ventilator associated). Coarse breath sounds persist on exam. Chest x-ray RML pneumonitis. - PRVC vent mode, intubated 06/01. Persistently elevated airway pressures. Improved oxygen demand and PEEP. Hypothyroidism: - Continue Synthroid. Check TSH -> NL tube feeds. add free water. Overall impression: Critically ill with deteriorating LOC and unable to protect airway. Aspiration pneumonitis. Required intubation and mechanical ventilation. Pulmonary status not improving. mental status not improving. Critical Care: The total critical care time was 32 minutes. Time to perform other separately billable procedures was not included in the critical care time. Mikey Mills MD Jun 04, 2017 13:45
[2017-06-04] MEDS: DEXMEDETOMIDINE INJ 200 MCG in SODIUM CHLORIDE 0.9% INJ 50 ML IV PRN ×5 (14:12→23:52)
[2017-06-04] MEDS ORDERED: HALOPERIDOL LACTATE 5 MG/ML AMP IV PUSH PRN (14:15)
[2017-06-04] MEDS: cefTRIAXone INJ 2,000 MG in SODIUM CHLORIDE 0.9% INJ 100 ML IV SCH (17:05)
[2017-06-04] MEDS: cloZAPine 100 MG TAB PO SCH (21:20)
[2017-06-04] MEDS: CHLORHEXIDINE 0.12% (ORAL KIT) 15 ML CUP MT SCH (21:20)
[2017-06-05] VITALS (18 sets, daily range): BP systolic 93–117; BP diastolic 55–71; PULSE 60–94; RESP 18–32; TEMP 97.6–100.7; O2SAT 90–96
[2017-06-05] MEDS: PROPOFOL 1000 MG/100 ML INJ 100 ML IV PRN (01:02)
[2017-06-05] MEDS: DEXMEDETOMIDINE INJ 200 MCG in SODIUM CHLORIDE 0.9% INJ 50 ML IV PRN ×5 (01:32→10:27)
[2017-06-05] MEDS: VANCOMYCIN 1,000 MG/NS 250 ML IV SCH ×6 (01:47→17:11)
[2017-06-05] MEDS: LORazepam 2 MG/ML VIAL IV PUSH PRN (02:42)
[2017-06-05 03:17] LABS: BLOOD GAS BASE EXCESS 0.1 mmol/L (-2-2); BLOOD GAS HCO3 24 mmol/L (22-26); BLOOD GAS METHEMOGLOBIN 1.2 % (0-2); BLOOD GAS O2 HGB SATURATION 91 % (90-100); BLOOD GAS PCO2 37 mmHg (38-42); BLOOD GAS PO2 64 mmHg (61-120); BLOOD GAS TOTAL HGB 9.4 G/DL (12.0-16.0); CRITICAL VALUE NO; DRAW SITE RT RADIAL; FIO2 40 %; NUMBER OF ARTERIAL PUNCTURES 1; OXYGEN DEVICE VENTILATOR; STAT NO; TEMP CORR TO 98.6; ULNAR PULSE PRESENT; VENT SETTINGS PRVC/AC
[2017-06-05] MEDS: RESP: ALBUTEROL 2.5 MG/IPRATROPIUM 0.5 MG NEB (SCH) NEB ×4 (03:26→20:09)
[2017-06-05] MEDS: LEVOTHYROXINE SODIUM 75 MCG TAB PO SCH (05:42)
[2017-06-05] MEDS: CHOLECALCIFEROL (VIT D3) 400 UNIT TAB PO SCH (07:44)
[2017-06-05] MEDS: GABAPENTIN 100 MG CAP PO SCH ×3 (07:44→17:11)
[2017-06-05] MEDS: levETIRAcetam INJ 100 ML IV SCH ×2 (07:44→19:51)
[2017-06-05] MEDS: FAMOTIDINE 20 MG TAB PO SCH ×2 (07:44→19:52)
[2017-06-05] MEDS: TRIFLUOPERAZINE 1 MG PO SCH ×2 (07:44→19:52)
--- NOTE | 2017-06-05 07:55 | HHI.CCPN ---
Subjective Remarks/Hospital Course 61 y/o woman found down after a probable seizure at a local alf. Remains obtunded. Gas exchange acceptable but airway control marginal. Neurology Service requests MRI which will require intubation and mechanical ventilation for airway control. EEG this morning with no seizures. 06/02: CSF could be viral [employer] process, bacterial unlikely. High airway pressures after aspiration pneumonitis (aspirated prior to intubation). Remains largely obtunded. 06/03 SBT today with attempt to wean and extubate failed due to rapid shallow breathing. No other events overnight 06/04: still encephalopathic. rapid breathing persists. discussed with family member today who states she had a very poor quality of life in the alf she is in, and they are not sure how much aggressive treatment she would want if they knew her prognosis was poor. 06/05: sodium rising, mental status still poor. tachypneic overnight. intermittently agitated. Objective Vital Signs Date Time Temp Pulse Resp B/P (MAP) Pulse Ox O2 Delivery O2 Flow Rate FiO2 06/05/17 06:00 60 06/05/17 04:18 92 40 06/05/17 04:00 97.6 32 96/58 (71) 06/04/17 19:00 Mechanical Ventilator 06/03/17 19:00 20.00 Intake and Output 06/05/17 06/05/17 06/06/17 08:00 16:00 00:00 Intake Total 847 ml Output Total 500 ml Balance 347 ml Result Diagram: 06/04/17 0425 06/04/17 0425 Other Results Laboratory Tests Test 06/05/17 03:05 Blood Gas Puncture Site RT RADIAL Blood Gas Patient Temperature 98.6 Blood Gas HCO3 24 mmol/L (22-26) Blood Gas Base Excess 0.1 mmol/L (-2-2) Blood Gas Oxygen Saturation 91 % (90-100) Arterial Blood pH 7.43 (7.380-7.420) Arterial Blood Partial Pressure CO2 37 mmHg (38-42) Arterial Blood Partial Pressure O2 64 mmHg (61-120) Arterial Blood Oxygen Content 12.0 Vol % (12.0-20.0) Arterial Blood Carboxyhemoglobin 1.0 % (0-4) Arterial Blood Methemoglobin 1.2 % (0-2) Blood Gas Hemoglobin 9.4 G/DL (12.0-16.0) Oxygen Delivery Device VENTILATOR Blood Gas Ventilator Setting PRVC/AC Blood Gas Inspired Oxygen 40 % Imaging Last 24 hours Impressions Chest X-Ray 06/03/17 0000 Signed Impressions: Service Date/Time: Saturday, June 03, 2017 05:23 - CONCLUSION: OG tube placement as above. Harshil Lantigua MD Objective Remarks Gen: Obtunded. Unresponsive. Head: Atraumatic. Lungs: equal chest rise. tachypneic. Acceptable air movement. Heart: RRR, no JVD. Abdomen: Benign, soft, no guarding. Extremities: Warm, well perfused. Neuro: Withdraws 4 limbs to noxious stimulation. Pupils 2 mm, reactive. Weak cough reflex. No purposeful movement. A/P Assessment and Plan Assessment and Plan: 61yF with schizophrenia who presents with acute encephalopathy and possible encephalitis with secondary bacterial pneumonia. continues to be encephalopathic. will again hold as many long-acting sedating drugs as possible, however, patient is on a number of anti-psychotics which we need to continue for her underlying disease processes. will add fentanyl for persistent cough and vent dyssynchrony. Remains critically ill with encephalopathy which has not improved and led to her respiratory failure. off pathway. no meaningful improvements over the last 24h. Seizures: Breakthrough seizure, Altered mental status likely secondary to postictal state vs viral [employer] infection. Antiviral and antibiotics per ID recommendation Schizophrenia continue home meds Acute encephalopathy - persistent, severe. frequent neuro checks add fentanyl wean off precedex and propofol as tolerated. Infectious Disease: Fever 101 on presentation. Likely from sinusitis. Blood cultures Stap X 3/4 bottles. Narrowed to Vancomycin by ID Service. continue rocephin Acute hypoxic and hypercarbic Respiratory Failure: persistent. Hypoxemia and aspiration prior to intubation (not ventilator associated). Coarse breath sounds persist on exam. Chest x-ray RML pneumonitis. - PRVC vent mode, intubated 06/01. minimal improvements. no weaning until mental status improved. Hypothyroidism: - Continue Synthroid. Check TSH -> NL tube feeds. add free water. Critical Care: The total critical care time was 30 minutes. Time to perform other separately billable procedures was not included in the critical care time. Mikey Mills MD Jun 05, 2017 07:55
[2017-06-05] MEDS: fentaNYL DRIP 250 ML IV PRN (07:56)
[2017-06-05] MEDS: CHLORHEXIDINE 0.12% (ORAL KIT) 15 ML CUP MT SCH ×2 (08:00→19:51)
[2017-06-05] MEDS: FREE WATER G-TUBE SCH ×3 (08:15→17:12)
[2017-06-05] MEDS ORDERED: RESP: LIDOCAINE HCL 4% PF 5 ML NEB NEB ONE (08:15)
[2017-06-05] MEDS: SODIUM CHLORIDE 0.9% FLUSH 10 ML FLUSH IV FLUSH SCH ×2 (09:00→19:52)
[2017-06-05] MEDS: cefTRIAXone INJ 2,000 MG in SODIUM CHLORIDE 0.9% INJ 100 ML IV SCH (17:10)
[2017-06-05] MEDS: ACETAMINOPHEN 325 MG TAB PO PRN (17:11)
[2017-06-05] MEDS: cloZAPine 100 MG TAB PO SCH (19:52)
[2017-06-06] VITALS (17 sets, daily range): BP systolic 124–132; BP diastolic 71–80; PULSE 84–100; RESP 16–28; TEMP 99.2–100.1; O2SAT 92–97
[2017-06-06] MEDS: VANCOMYCIN 1,000 MG/NS 250 ML IV SCH ×4 (01:56→10:34)
[2017-06-06] MEDS: RESP: ALBUTEROL 2.5 MG/IPRATROPIUM 0.5 MG NEB (SCH) NEB ×2 (04:10→09:43)
[2017-06-06] MEDS: LEVOTHYROXINE SODIUM 75 MCG TAB PO SCH (05:05)
[2017-06-06] MEDS: FREE WATER G-TUBE SCH ×5 (05:05→23:30)
[2017-06-06] MEDS: ACETAMINOPHEN 325 MG TAB PO PRN (05:19)
[2017-06-06 06:29] LABS: HEMATOCRIT 28.1 % (35.0-46.0); MEAN CELL VOLUME 92.8 FL (80.0-100.0); MEAN CORPUSCULAR HGB CONC 33.4 % (32.0-36.0); PLATELET COUNT 204 TH/MM3 (150-450); RED BLOOD COUNT 3.03 MIL/MM3 (4.00-5.30); RED CELL DISTRIBUTION WIDTH 14.5 % (11.6-17.2); REVIEW FLAG FINAL; WHITE BLOOD COUNT 4.1 TH/MM3 (4.0-11.0)
[2017-06-06 07:00] LABS: BICARBONATE 31.7 MEQ/L (21.0-32.0); POTASSIUM 3.8 MEQ/L (3.5-5.1)
[2017-06-06] MEDS: CHLORHEXIDINE 0.12% (ORAL KIT) 15 ML CUP MT SCH ×2 (08:00→20:41)
[2017-06-06] MEDS: SODIUM CHLORIDE 0.9% FLUSH 10 ML FLUSH IV FLUSH SCH ×2 (09:00→20:41)
[2017-06-06] MEDS: TRIFLUOPERAZINE 1 MG PO SCH ×2 (09:00→20:54)
[2017-06-06] MEDS: levETIRAcetam INJ 100 ML IV SCH ×2 (09:33→20:40)
[2017-06-06] MEDS: GABAPENTIN 100 MG CAP PO SCH ×3 (09:34→16:50)
[2017-06-06] MEDS: CHOLECALCIFEROL (VIT D3) 400 UNIT TAB PO SCH (09:34)
[2017-06-06] MEDS: FAMOTIDINE 20 MG TAB PO SCH ×2 (09:34→20:40)
--- NOTE | 2017-06-06 11:00 | PD.CONS ---
Consult Service Palliative Care Consult Requested By Dr. Mills Primary Care Physician Unknown Reason for Consultation a. To assist with evaluation and management of symptoms including:shortness of breath, altered mental status. b. To assist medical decision maker(s) with: better understanding of current medical conditions; weighing benefits/burdens of medical treatment options; making medical treatment decisions. HPI History of Present Illness Mrs Hussein is a 61 years old female with a past medical history of seizures, anxiety, schizophrenia, COPD, and hypothyroidism. Patient is a resident at [facility]. Patient was brought into the ER via EMS on after she was found on the floor at the senior care postictal and incontinent of urine. Patient was sonorous on arrival in the ER. ED Course: * Vital signs: Temperature 101.1 degrees F rectal, HR 89, BP 121/69, O2 saturation 86% on room air. Patient placed on 100% nonrebreather-then weaned to a Venturi mask * The patient was started on clindamycin and 100 mg IV every 6 for sinusitis and possible aspiration. * EKG revealed sinus rhythm * Laboratory workup 05/31/17 revealed WBC 10.0, hemoglobin 12, hematocrit 37.5, platelet count 200, sodium 142, potassium 3.2, BUN/creatinine 17/0.88 and AST 26 , ALT 17, total protein 6.3, albumin 2.6, lactic acid 1.3 * ABG- pH 7.46, pCO2 34, pO2 60, HCO3 23, Hgb 11.5, O2 saturation 89 on 10L Face mask * Head CT 05/31 revealed no acute hemorrhage or mass effect, evidence of acute sinusitis as involving the sphenoid sinus. * Chest x-ray revealed no acute disease * Cervical spine CT negative for trauma * EEG showed no ictal pattern * Patient admitted for further evaluation and treatment. Neurology Dr. Caicedo consulted on 05/31/17 for evaluation and management of seizure, and recommended to continue Keppra and use lorazepam as needed for seizure recurrence. Clinical course complicated with respiratory failure and encephalopathy. EEG on 05/31/17 revealed slowing indicating an encephalopathic process that may be secondary to medication effect, hypoxia or metabolic abnormality, no ictal activity or electrographic seizures noted. Patient became lethargic and hypoxic on 06/01/17 and was transferred to ICU. Critical care management Dr. Wall consulted on 06/01 for evaluation and management of respiratory failure. Patient intubated and placed on mechanical ventilation. Diagnostic lumbar puncture performed. CSF fluid showed no growth in [address] Cornelius consulted for evaluation and management of gram -positive bacteremia. Sputum culture collected on 06/01 showed Haemophilus influenzae. MRI brain revealed encephalocele. Neurosurgeon Dr. Beaver consulted on 06/03 for evaluation and management of encephalocele who indicated no surgical intervention needed for encephalocele. On 06/04 Dr. Mills discussed with family and family indicated that patient had a poor quality life prior to hospitalization and family is not sure if they want aggressive treatment if patient has a poor prognosis. Palliative care consulted. Patient seen and examined in her room. Patient intubated and on mechanical ventilation, no sedation since 0700 hours today. Patient in no obvious signs of distress, eyes closed. Patient is not following commands, only withdraws from noxious stimulation with bilateral lower extremities. Has facial grimacing to noxious stimulation to bilateral upper extremities. Laboratory workup today revealing WBC 4.1, Hgb 9.4, Hct 28.1, plt count 204, sodium 142, potassium 3.8, BUN/creatinine 13/0.50. No recent imaging. Telephone conversation with patient`s Jovita De Jesus . Obtained psychosocial and medical history. Patient has never completed advance directives per her and her mother as far as they know. Palliative care Fany Torres([employer]) confirmed with [facility] that patient has no advance directives on file. Patient`s stated that patient has indicated to him in the past that she would not ever want to be on life support and that she,"did not want to live in a vegetative state".Patients` stated that if patient`s prognosis is poor, then he would not pursue with aggressive treatment. He also indicated that patient would not like a tracheostomy if she is not able to be medically extubated. Addressed code status, discussed risks, benefits and limitations of CPR given ongoing multiple comorbidities. Patient`s decided to make patient a DNR/DNI.Telephone conversation with patient`s mother Fara Hodges. Obtained more psychosocial and medical history. Patient`s mother indicated that patient would not want to live in a vegetative state, or be on life support. Patient`s mother also stated that if patient`s prognosis is poor, then there would be no point for aggressive treatment. Both patient`s who is the patient`s health care proxy and her mother stated that if they would hear from the neurologist regarding patient `s prognosis, they will most likely proceed with compassionate withdrawal from life support. Case discussed with bedside RN Jade. Meeting with patient`s Jovita De Jesus who is her Health Care Proxy. reiterated that patient would not want to be on life support or end up with a tracheostomy and PEG tube not able to do much for herself. Patient`s with the support of patient`s mother, has indicated that they want to compassionately withdraw patient from life support. Patient`s would like to proceed with compassionate withdrawal from life support on Tuesday , June 08, 2017. He hopes to be here on that day between 0900hrs and 1000hrs. Introduced hospice philosophy and benefits. Patient`s will most likely want patient enrolled in hospice services after compassionate withdrawal from life support. Case discussed over telephone with Dr. Caicedo and Dr. Wall. Function/Cognitive Trajectory Per patient`s and mother , patient was independent of all her ADLs . Patient has had schizophrenia for a long time and did follow up with her psychiatrist at the [facility] clinic in [place]. Her cognition depended mostly on her compliancy with her medication regimen. Patient lived in [place], [place]. According to her she was having more psychiatric issues in August, and she checked herself into a [facility] in [place], [place] , from there she transferred to [facility]. Review of Systems ROS Limitations: Clinical Condition, Intubated Constitutional: COMPLAINS OF: Fever Eyes: DENIES: Eye inflammation Ears, nose, mouth, throat: DENIES: Nasal discharge Respiratory: COMPLAINS OF: Shortness of breath Cardiovascular: DENIES: Lower Extremity Edema Gastrointestinal: DENIES: Diarrhea Genitourinary: COMPLAINS OF: Urinary incontinence Hematologic/Lymphatics: COMPLAINS OF: Bruising Neurologic: COMPLAINS OF: Seizures Psychiatric: COMPLAINS OF: Hallucinations, Agitation Other ROS: ROS obtained from medical record and clinical observation. . Past Family Social History Coded Allergies: penicillin G (Unverified Allergy, Severe, 02/08/17) Sulfa (Sulfonamide Antibiotics) (Unverified Allergy, Intermediate, 02/08/17 ) Past Medical History Seizures Hypothyroidism COPD Schizophrenia . Past Surgical History Cholecystectomy Hysterectomy Reported Medications Potassium Chloride ER (Potassium Chloride) 20 Meq Tab 20 Meq PO DAILY Norvasc (Amlodipine Besylate) 5 Mg Tab 10 Mg PO DAILY Flonase Allergy Relief Children Nasal [place] (Fluticasone Nasal [place]) 50 Mcg/ Act [place] 2 [place] EACH NARE DAILY Docusate Sodium 100 Mg Cap 100 Mg PO DAILY Trifluoperazine (Trifluoperazine HCl) 2 Mg Tab 2 Mg PO BID Omeprazole 20 Mg Tab 20 Mg PO DAILY Levothyroxine (Levothyroxine Sodium) 75 Mcg Tab 75 Mcg PO DAILY Keppra (Levetiracetam) 1,000 Mg Tab 1,000 Mg PO BID Gabapentin 100 Mg Cap 100 Mg PO TID Clozapine 200 Mg Tab 400 Mg PO HS Vitamin D-400 (Cholecalciferol) 400 Unit Tab 400 Units PO DAILY . Current Medications Medications (Trade) Dose Ordered Sig/Matt Route Start Time Stop Time Status Last Admin (NS Flush) 2 ml UNSCH PRN IV FLUSH 05/31/17 01:30 (NS Flush) 2 ml BID IV FLUSH 05/31/17 09:00 06/05/17 19:52 (Narcan Inj) 0.4 mg UNSCH PRN IV PUSH 05/31/17 01:30 (Pepcid) 20 mg Q12HR PO 05/31/17 09:00 06/05/17 19:52 (Vitamin D3) 400 units DAILY PO 06/01/17 09:00 06/05/17 07:44 (Clozaril) 400 mg HS PO 05/31/17 21:00 06/05/17 19:52 (Neurontin) 100 mg TID PO 05/31/17 13:00 06/05/17 17:11 (Synthroid) 75 mcg DAILY@0600 PO 06/01/17 06:00 06/06/17 05:05 Non-Formulary Medication 2 mg BID PO 05/31/17 21:00 06/05/17 19:52 (Tylenol) 650 mg Q4H PRN PO 05/31/17 13:30 06/06/17 05:19 (Zofran Inj) 4 mg Q6H PRN IV PUSH 05/31/17 13:30 Levetriacetam 100 ml @ 400 mls/hr Q12HR IV 06/01/17 09:00 06/05/17 19:51 (Peridex 0.12% Liq) 15 ml BID@08,20 MT 06/01/17 20:00 06/06/17 08:00 Propofol 100 ml @ 1.671 mls/ hr TITRATE PRN IV 06/01/17 08:30 06/05/17 01:02 Pharmacy Profile Note 0 ml @ 0 mls/hr UNSCH OTHER 06/01/17 10:40 (Duoneb Neb) 1 ampule Q6HR NEB NEB 06/02/17 10:00 06/06/17 04:10 Vancomycin HCl 1000 mg/Sodium Chloride 250 ml @ 250 mls/hr Q8H IV 06/03/17 10:00 06/06/17 01:56 Potassium Chloride 100 ml @ 50 mls/hr Q2H PRN IV 06/03/17 12:00 Potassium Chloride 100 ml @ 50 mls/hr Q2H PRN IV 06/03/17 12:00 (K-Lyte Cl Eff) 50 meq UNSCH PRN PO 06/03/17 12:00 Potassium Chloride 100 ml @ 25 mls/hr UNSCH PRN IV 06/03/17 12:00 Potassium Chloride 100 ml @ 50 mls/hr Q2H PRN IV 06/03/17 12:00 Magnesium Sulfate 4 gm/Sodium Chloride 100 ml @ 50 mls/hr UNSCH PRN IV 06/03/17 12:00 (Mag-Ox) 800 mg UNSCH PRN PO 06/03/17 12:00 Magnesium Sulfate 2 gm/Sodium Chloride 100 ml @ 50 mls/hr UNSCH PRN IV 06/03/17 12:00 (K-Phos) 2,000 mg Q4H PRN PO 06/03/17 12:00 Sodium Phosphate 30 mmol/Sodium Chloride 250 ml @ 42 mls/hr UNSCH PRN IV 06/03/17 12:00 (K-Phos) 2,000 mg UNSCH PRN PO/TUBE 06/03/17 12:00 06/04/17 08:56 Potassium Phosphate 30 mmol/ Sodium Chloride 260 ml @ 42 mls/hr UNSCH PRN IV 06/03/17 12:00 Ceftriaxone Sodium 2000 mg/ Sodium Chloride 100 ml @ 200 mls/hr Q24H IV 06/04/17 17:00 06/05/17 17:10 (Haldol Inj) 2 mg Q4H PRN IV PUSH 06/04/17 14:15 Dexmedetomidine HCl 200 mcg/ Sodium Chloride 52 ml @ 8.32 mls/hr TITRATE PRN IV 06/04/17 13:30 06/05/17 10:27 Fentanyl Citrate 250 ml @ 5 mls/hr TITRATE PRN IV 06/05/17 07:30 06/05/17 07:56 (Free Water) VOLUME: 200 ML Q6HR G-TUBE 06/05/17 08:15 06/06/17 05:05 Family History Father- of mesothelioma Brother from complications from motor vehicle crush Mother-living and has had colon cancer, breast cancer, IBS, osteoporosis Patient has 2 brothers and 1 sister still living with no medical conditions . Substance Use Tobacco:Yes Alcohol: No? Prescription med abuse: No Illicits:History of use of PCP . Psychosocial History Patient was born in [place] and moved to [place] at the age of 12. Patient completed high school and took a few college credits and then dropped out of college. Patient moved to [place] after he her second . Patient has been twice but has been to her second for 32 years. Patient is still legally to her second but she left him in August of 2015 when she voluntarily checked herself into the [facility] in [place], [place]. She was then discharged to [facility] on May,. Patient enjoys listening to the radio. . Spiritual/Cultural Factors Patient is taoism and according to her and mother will benefits from traffic engineering technician visits. . Physical Exam Vital Signs Date Time Temp Pulse Resp B/P (MAP) Pulse Ox O2 Delivery O2 Flow Rate FiO2 06/06/17 06:00 96 06/06/17 04:34 94 60 06/06/17 04:00 60 06/06/17 04:00 99.2 100 22 126/71 (89) 94 06/06/17 04:00 100 06/06/17 02:00 96 06/06/17 01:41 94 60 06/06/17 00:00 60 06/06/17 00:00 94 06/06/17 00:00 99.2 94 23 124/71 (88) 96 06/05/17 22:42 95 60 06/05/17 22:00 88 06/05/17 20:03 93 60 06/05/17 20:00 99.6 87 18 94/55 (68) 96 06/05/17 20:00 87 06/05/17 20:00 60 06/05/17 19:00 91 Mechanical Ventilator 40 06/05/17 18:00 93 06/05/17 16:12 92 50 06/05/17 16:00 100.7 94 20 117/66 (83) 93 06/05/17 16:00 94 06/05/17 16:00 40 06/05/17 14:00 78 06/05/17 12:00 78 06/05/17 12:00 40 06/05/17 12:00 100.4 78 21 110/68 (82) 93 06/05/17 12:00 93 50 06/05/17 10:00 69 Exam CONSTITUTIONAL/GENERAL: This is an adequately nourished patient, in no apparent distress. TUBES/LINES/DRAINS: SKIN: No jaundice, rashes, or lesions. Ecchymoses on upper extremities. No wounds seen anteriorly. Skin temperature appropriate. Not diaphoretic. HEAD: Atraumatic. Normocephalic. EYES: Pupils equal and round and reactive. Extraocular motions intact. No scleral icterus. No injection or drainage. Fundi not examined. ENT: Hearing grossly normal. Nose without bleeding or purulent drainage. Throat without visible erythema, exudates, masses, or lesions. NECK: Trachea midline. Supple, nontender. No palpable thyroid enlargement or nodularity. CARDIOVASCULAR: Regular rate and rhythm without murmurs, gallops, or rubs. No JVD. Peripheral pulses symmetric. RESPIRATORY/CHEST: Symmetric, unlabored respirations. Clear to auscultation. Breath sounds equal bilaterally. No wheezes, rales, or rhonchi. GASTROINTESTINAL: Abdomen soft, non-tender, nondistended. No hepato-splenomegaly , or palpable masses. No guarding. Bowel sounds present. GENITOURINARY: Without palpable bladder distension. Andrade catheter in place. MUSCULOSKELETAL: Extremities without clubbing, cyanosis, or edema. No joint tenderness or effusion noted. No calf tenderness. No mottling or clubbing. LYMPHATICS: No palpable cervical or supraclavicular adenopathy. NEUROLOGICAL: Awake and alert. Motor and sensory grossly within normal limits. Follows commands. Cognitively sharp. Moves all extremities. PSYCHIATRIC: No obvious anxiety/depression. no apparent hallucinations or other psychotic thought process. Diagnostic Tests Laboratory Laboratory Tests Test 06/03/17 11:43 06/04/17 04:25 06/04/17 04:40 06/04/17 09:35 Blood Urea Nitrogen 12 MG/DL (7-18) 10 MG/DL (7-18) Creatinine 0.71 MG/DL (0.50-1.00) 0.68 MG/DL (0.50-1.00) Random Glucose 126 MG/DL (74-106) 145 MG/DL (74-106) Calcium Level 7.7 MG/DL (8.5-10.1) 7.3 MG/DL (8.5-10.1) Sodium Level 148 MEQ/L (136-145) 150 MEQ/L (136-145) Potassium Level 3.6 MEQ/L (3.5-5.1) 3.4 MEQ/L (3.5-5.1) Chloride Level 117 MEQ/L (98-107) 117 MEQ/L (98-107) Carbon Dioxide Level 22.1 MEQ/L (21.0-32.0) 26.2 MEQ/L (21.0-32.0) Anion Gap 9 MEQ/L (5-15) 7 MEQ/L (5-15) Estimat Glomerular Filtration Rate 84 ML/MIN (>89) 89 ML/MIN (>89) Phosphorus Level 2.0 MG/DL (2.5-4.9) 1.2 MG/DL (2.5-4.9) White Blood Count 5.9 TH/MM3 (4.0-11.0) Red Blood Count 3.22 MIL/MM3 (4.00-5.30) Hemoglobin 10.0 GM/DL (11.6-15.3) Hematocrit 29.7 % (35.0-46.0) Mean Corpuscular Volume 92.2 FL (80.0-100.0) Mean Corpuscular Hemoglobin 31.0 PG (27.0-34.0) Mean Corpuscular Hemoglobin Concent 33.7 % (32.0-36.0) Red Cell Distribution Width 14.6 % (11.6-17.2) Platelet Count 166 TH/MM3 (150-450) Mean Platelet Volume 8.7 FL (7.0-11.0) Neutrophils (%) (Auto) 90.6 % (16.0-70.0) Lymphocytes (%) (Auto) 5.1 % (9.0-44.0) Monocytes (%) (Auto) 4.2 % (0.0-8.0) Eosinophils (%) (Auto) 0.0 % (0.0-4.0) Basophils (%) (Auto) 0.1 % (0.0-2.0) Neutrophils # (Auto) 5.4 TH/MM3 (1.8-7.7) Lymphocytes # (Auto) 0.3 TH/MM3 (1.0-4.8) Monocytes # (Auto) 0.2 TH/MM3 (0-0.9) Eosinophils # (Auto) 0.0 TH/MM3 (0-0.4) Basophils # (Auto) 0.0 TH/MM3 (0-0.2) CBC Comment AUTO DIFF Differential Total Cells Counted 100 Neutrophils % (Manual) 86 % (16-70) Band Neutrophils % 6 % (0-6) Lymphocytes % 3 % (9-44) Monocytes % 4 % (0-8) Basophils % 1 % (0-2) Neutrophils # (Manual) 5.4 TH/MM3 (1.8-7.7) Differential Comment FINAL DIFF MANUAL Dohle Bodies PRESENT (NONE SEEN) Platelet Estimate NORMAL (NORMAL) Platelet Morphology Comment NORMAL (NORMAL) Helmet Cells OCC (NORMAL) Total Protein 5.6 GM/DL (6.4-8.2) Albumin 1.7 GM/DL (3.4-5.0) Magnesium Level 2.2 MG/DL (1.5-2.5) Alkaline Phosphatase 59 U/L (45-117) Aspartate Amino Transf (AST/SGOT) 29 U/L (15-37) Alanine Aminotransferase (ALT/SGPT) 15 U/L (10-53) Total Bilirubin 0.2 MG/DL (0.2-1.0) Protein Corrected Calcium 8.1 MG/DL (8.5-10.1) Blood Gas Puncture Site RT RADIAL Blood Gas Patient Temperature 98.6 Blood Gas HCO3 25 mmol/L (22-26) Blood Gas Base Excess 1.0 mmol/L (-2-2) Blood Gas Oxygen Saturation 92 % (90-100) Arterial Blood pH 7.40 (7.380-7.420) Arterial Blood Partial Pressure CO2 41 mmHg (38-42) Arterial Blood Partial Pressure O2 68 mmHg (61-120) Arterial Blood Oxygen Content 15.7 Vol % (12.0-20.0) Arterial Blood Carboxyhemoglobin 0.8 % (0-4) Arterial Blood Methemoglobin 1.3 % (0-2) Blood Gas Hemoglobin 12.2 G/DL (12.0-16.0) Oxygen Delivery Device VENTILATOR Blood Gas Ventilator Setting PRVC/AC Blood Gas Inspired Oxygen 40 % Vancomycin Level Trough 16.6 MCG/ML (5.0-10.0) Test 06/05/17 03:05 06/06/17 05:45 Blood Gas Puncture Site RT RADIAL Blood Gas Patient Temperature 98.6 Blood Gas HCO3 24 mmol/L (22-26) Blood Gas Base Excess 0.1 mmol/L (-2-2) Blood Gas Oxygen Saturation 91 % (90-100) Arterial Blood pH 7.43 (7.380-7.420) Arterial Blood Partial Pressure CO2 37 mmHg (38-42) Arterial Blood Partial Pressure O2 64 mmHg (61-120) Arterial Blood Oxygen Content 12.0 Vol % (12.0-20.0) Arterial Blood Carboxyhemoglobin 1.0 % (0-4) Arterial Blood Methemoglobin 1.2 % (0-2) Blood Gas Hemoglobin 9.4 G/DL (12.0-16.0) Oxygen Delivery Device VENTILATOR Blood [facility] Inspired Oxygen 40 % White Blood Count 4.1 TH/MM3 (4.0-11.0) Red Blood Count 3.03 MIL/MM3 (4.00-5.30) Hemoglobin 9.4 GM/DL (11.6-15.3) Hematocrit 28.1 % (35.0-46.0) Mean Corpuscular Volume 92.8 FL (80.0-100.0) Mean Corpuscular Hemoglobin 31.0 PG (27.0-34.0) Mean Corpuscular Hemoglobin Concent 33.4 % (32.0-36.0) Red Cell Distribution Width 14.5 % (11.6-17.2) Platelet Count 204 TH/MM3 (150-450) Mean Platelet Volume 8.7 FL (7.0-11.0) Blood Urea Nitrogen 13 MG/DL (7-18) Creatinine 0.50 MG/DL (0.50-1.00) Random Glucose 146 MG/DL (74-106) Calcium Level 7.7 MG/DL (8.5-10.1) Sodium Level 152 MEQ/L (136-145) Potassium Level 3.8 MEQ/L (3.5-5.1) Chloride Level 117 MEQ/L (98-107) Carbon Dioxide Level 31.7 MEQ/L (21.0-32.0) Anion Gap 3 MEQ/L (5-15) Estimat Glomerular Filtration Rate 126 ML/MIN (>89) Result Diagram: 06/06/17 0545 06/06/17 0545 Microbiology Microbiology Date/Time Source Procedure Growth Status 06/04/17 04:35 Blood Peripheral Aerobic Blood Culture - Preliminary NO GROWTH IN 1 DAY Resulted 06/04/17 04:35 Blood Peripheral Anaerobic Blood Culture - Preliminary NO GROWTH IN 1 DAY Resulted 06/04/17 04:25 Blood Peripheral Aerobic Blood Culture - Preliminary NO GROWTH IN 1 DAY Resulted 06/04/17 04:25 Blood Peripheral Anaerobic Blood Culture - Preliminary NO GROWTH IN 1 DAY Resulted 06/04/17 06:00 Sputum Endotracheal Gram Stain - Final Resulted 06/04/17 06:00 Sputum Endotracheal Sputum Culture - Preliminary NO GROWTH IN 24 HOURS. Resulted Procedures 06/01/17-intubated 06/01/17-diagnostic lumbar puncture Patient/Family Conference Issues Discussed: * Palliative care role, purpose, approach * Additional medical, psychosocial, and spiritual history * Patients general health, functional status, and cognitive changes in the months leading up to the current hospitalization * Patient/family understanding of the current medical problems * Patient/family understanding of prognosis * Patients goals of care as best understood from advance directives and/or conversations and/or values * Current medical treatment options and benefits/burdens of those options * Likely scenarios comparing ongoing aggressive care with a transition to comfort measures only * Questions answered to the best of my ability * Palliative care contact information provided Assessment and Plan Disease Oriented Problem List: (1) Acute encephalopathy (2) Hypoxia (3) Seizure disorder (4) Schizophrenia (5) Hypothyroidism Symptom Scale: (1) Shortness of breath 0-10 Scale: Unable to quantify Comment: Multifactorial. Currently intubated on mechanical ventilation . (2) Altered mental status 0-10 Scale: Unable to quantify Pertinent Non-Medical Issues Psychosocial:Patient was born in [place] and moved to [place] at the age of 12. Patient completed high school and took a few college credits and then dropped out of college. Patient moved to [place] after he her second . Patient has been twice but has been to her second for 32 years. Patient is still legally to her second but she left him in August of 2015 when she voluntarily checked herself into the [facility] in [place], [place]. She was then discharged to [facility] living on May,. Patient enjoys listening to the radio. Spiritual:Patient is taoism and according to her and mother will benefits from traffic engineering technician visits. Legal:Patient does not have advance directives Ethical issues impacting care: None identified at this time Important Contacts - Health care proxy- Jovita De Jesus [phone] Mother-Carroll Chaudhari [phone] (home); [phone] (cell) Sister-Mario Crowell [phone] Brother-Jamilah Paniaguajacquelin [phone] . Prognosis Mrs Hussein is a 61 years old female with a past medical history of seizures, anxiety, schizophrenia, COPD, and hypothyroidism. Patient is a resident at [facility]. Patient was brought into the ER via EMS on after she was found on the floor at the senior care postictal and incontinent of urine. Clinical course complicated with agitation, respiratory failure and encephalopathy. Patient intubated and placed on mechanical ventilation on 06/01/17. Since then patient has not been showing any improvement neurologically. Patient remains at high risk for further complications, deterioration and decline. . Code Status: No Code Plan PLAN: Legal decision maker: Patient is currently intubated on mechanical ventilation and not capacitated to make her own medical decisions, unsure if patient will regain capacity to make her own medical decisions.Patient has never completed a HCS form. She is still legally and according to [place] Statute her will act as her Health Care Proxy. Goals: Patient made DNR today by her . Patient`s will most likely progress to compassionate withdrawal from life support on June 08, 2017. Patients` will most likely transition patient to comfort care only through hospice services after compassionate withdrawal from life support. Meeting with patient`s Jovita De Jesus who is her Health Care Proxy. reiterated that patient would not want to be on life support or end up with a tracheostomy and PEG tube not able to do much for herself. Patient`s with the support of patient`s mother, has indicated that they want to compassionately withdraw patient from life support. Patient`s would like to proceed with compassionate withdrawal from life support on Tuesday , June 08, 2017. He hopes to be here on that day between 0900hrs and 1000hrs. Introduced hospice philosophy and benefits. Patient`s will most likely want patient enrolled in hospice services after compassionate withdrawal from life support. CODE STATUS: DNR/DNI SYMPTOMS: * Shortness of breath: Multifactorial. Patient has a history of COPD. Most likely aspirated.Chest x-ray showed RML pneumonitis. Patient went into respiratory failure requiring intubation and placed on mechanical ventilation. Patient on antibiotics. Currently on FIO2 55%. * Agitation: Patient has a history of schizophrenia and came in after an unwitnessed seizure. Patient on Keppra for seizures. Patient on Clozapine 400mg po daily * Altered mental status: Multifactorial. Patient has a history of seizures and schizophrenia. Patient`s mental status not improving. Patient is off sedation. Palliative care will continue to follow the patient during hospital course as condition evolves, to assist patient/decision-maker with understanding of their medical conditions, weighing benefits/burdens of treatment options, for clarification of goals of treatment. Additionally will assist with any symptoms of palliative concern Thank you for the opportunity to participate in the care of Ms. Hussein. Dasha Muro Jun 06, 2017 10:45
--- NOTE | 2017-06-06 11:31 | HHI.CCPN ---
Subjective Remarks/Hospital Course 61 y/o woman found down after a probable seizure at a local intermediate. Remains obtunded. Gas exchange acceptable but airway control marginal. Neurology Service requests MRI which will require intubation and mechanical ventilation for airway control. EEG this morning with no seizures. 06/02: CSF could be viral [employer] process, bacterial unlikely. High airway pressures after aspiration pneumonitis (aspirated prior to intubation). Remains largely obtunded. 06/03 SBT today with attempt to wean and extubate failed due to rapid shallow breathing. No other events overnight 06/04: still encephalopathic. rapid breathing persists. discussed with family member today who states she had a very poor quality of life in the prison she is in, and they are not sure how much aggressive treatment she would want if they knew her prognosis was poor. 06/05: sodium rising, mental status still poor. tachypneic overnight. intermittently agitated. 06/06: Poor neurological progress. Objective Vital Signs Date Time Temp Pulse Resp B/P (MAP) Pulse Ox O2 Delivery O2 Flow Rate FiO2 06/06/17 09:47 97 60 06/06/17 06:00 96 06/06/17 04:00 99.2 22 126/71 (89) 06/05/17 19:00 Mechanical Ventilator 06/03/17 19:00 20.00 Intake and Output 06/06/17 06/06/17 06/07/17 08:00 16:00 00:00 Intake Total 1158 ml Output Total 1300 ml Balance -142 ml Result Diagram: 06/06/17 0545 06/06/17 0545 Imaging Last 24 hours Impressions Chest X-Ray 06/03/17 0000 Signed Impressions: Service Date/Time: Saturday, June 03, 2017 05:23 - CONCLUSION: OG tube placement as above. Harshil Lantigua MD Objective Remarks Gen: Obtunded. Unresponsive. Head: Atraumatic. Lungs: equal chest rise. tachypneic. Acceptable air movement. Heart: RRR, no JVD. Abdomen: Benign, soft, no guarding. Extremities: Warm, well perfused. Neuro: Withdraws 4 limbs to noxious stimulation. Pupils 2 mm, reactive. Weak cough reflex. No purposeful movement. A/P Assessment and Plan Assessment and Plan: 61yF with schizophrenia who presents with acute encephalopathy and possible encephalitis with secondary bacterial pneumonia. continues to be encephalopathic. will again hold as many long-acting sedating drugs as possible, however, patient is on a number of anti-psychotics which we need to continue for her underlying disease processes. will add fentanyl for persistent cough and vent dyssynchrony. Remains critically ill with encephalopathy which has not improved and led to her respiratory failure. off pathway. no meaningful improvements over the last 24h. Seizures: Breakthrough seizure, Altered mental status likely secondary to postictal state vs viral [employer] infection. Antiviral and antibiotics per ID recommendation Schizophrenia continue home meds Acute encephalopathy - persistent, severe. frequent neuro checks add fentanyl wean off precedex and propofol as tolerated. Infectious Disease: Fever 101 on presentation. Likely from sinusitis. Blood cultures Stap X 3/4 bottles. Narrowed to Vancomycin by ID Service. continue rocephin Acute hypoxic and hypercarbic Respiratory Failure: persistent. Hypoxemia and aspiration prior to intubation (not ventilator associated). Coarse breath sounds persist on exam. Chest x-ray RML pneumonitis. - PRVC vent mode, intubated 06/01. minimal improvements. no weaning until mental status improved. Hypothyroidism: - Continue Synthroid. Check TSH -> NL tube feeds. add free water. Overall impression: Continue to correct electrolytes. Devaughn Wall MD Jun 06, 2017 11:31
[2017-06-06] MEDS: fentaNYL DRIP 250 ML IV PRN (14:00)
--- NOTE | 2017-06-06 16:29 | HHI.PR ---
Addendum to Inpatient Note Additional Information pt seen arounf 1630 today full note to follow BC cw contam will stop vanco cont CFTX for Haemophilus PNA Bess Suarez MD Jun 06, 2017 16:29
[2017-06-06] MEDS: cefTRIAXone INJ 2,000 MG in SODIUM CHLORIDE 0.9% INJ 100 ML IV SCH (16:50)
[2017-06-06] MEDS: cloZAPine 100 MG TAB PO SCH (20:40)
--- NOTE | 2017-06-06 23:51 | HHI.IDPN ---
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 Vital Signs Date Time Temp Pulse Resp B/P (MAP) Pulse Ox O2 Delivery O2 Flow Rate FiO2 06/06/17 22:00 93 06/06/17 21:09 92 55 06/06/17 20:00 85 06/06/17 20:00 55 06/06/17 20:00 99.6 92 16 125/77 (93) 92 06/06/17 19:00 Mechanical Ventilator 20.00 55 06/06/17 18:00 84 06/06/17 16:00 100.1 84 20 126/77 (93) 94 06/06/17 16:00 55 06/06/17 16:00 84 06/06/17 15:35 93 55 06/06/17 12:37 94 55 06/06/17 12:00 55 06/06/17 12:00 99.6 89 23 132/80 (97) 95 06/06/17 12:00 89 06/06/17 10:00 97 06/06/17 09:47 97 60 06/06/17 08:00 97 06/06/17 08:00 60 06/06/17 08:00 99.4 97 28 126/71 (89) 94 06/06/17 07:00 95 Mechanical Ventilator 60 06/06/17 06:00 96 06/06/17 04:34 94 60 06/06/17 04:00 60 06/06/17 04:00 99.2 100 22 126/71 (89) 94 06/06/17 04:00 100 06/06/17 02:00 96 06/06/17 01:41 94 60 06/06/17 00:00 60 06/06/17 00:00 94 06/06/17 00:00 99.2 94 23 124/71 (88) 96 06/06/17 06/06/17 06/07/17 15:00 23:00 07:00 Intake Total 343 ml 1007 ml Output Total 1300 ml Balance 343 ml -293 ml IV Total 343 ml Tube Feeding 507 ml Other 500 ml Output Urine Total 1300 ml # Bowel Movements 0 . Laboratory Tests Test 06/06/17 05:45 White Blood Count 4.1 TH/MM3 Red Blood Count 3.03 MIL/MM3 Hemoglobin 9.4 GM/DL Hematocrit 28.1 % Mean Corpuscular Volume 92.8 FL Mean Corpuscular Hemoglobin 31.0 PG Mean Corpuscular Hemoglobin Concent 33.4 % Red Cell Distribution Width 14.5 % Platelet Count 204 TH/MM3 Mean Platelet Volume 8.7 FL Laboratory Tests Test 06/06/17 05:45 Blood Urea Nitrogen 13 MG/DL Creatinine 0.50 MG/DL Random Glucose 146 MG/DL Calcium Level 7.7 MG/DL Sodium Level 152 MEQ/L Potassium Level 3.8 MEQ/L Chloride Level 117 MEQ/L Carbon Dioxide Level 31.7 MEQ/L Anion Gap 3 MEQ/L Estimat Glomerular Filtration Rate 126 ML/MIN Microbiology Date/Time Source Procedure Growth Status 06/04/17 04:35 Blood Peripheral Aerobic Blood Culture - Preliminary NO GROWTH IN 2 DAYS Resulted 06/04/17 04:35 Blood Peripheral Anaerobic Blood Culture - Preliminary NO GROWTH IN 2 DAYS Resulted 06/04/17 04:25 Blood Peripheral Aerobic Blood Culture - Preliminary NO GROWTH IN 2 DAYS Resulted 06/04/17 04:25 Blood Peripheral Anaerobic Blood Culture - Preliminary NO GROWTH IN 2 DAYS Resulted 06/04/17 06:00 Sputum Endotracheal Gram Stain - Final Complete 06/04/17 06:00 Sputum Endotracheal Sputum Culture - Final NO GROWTH IN 48 HOURS. Complete Imaging Last Impressions Chest X-Ray 06/04/17 0600 Signed Impressions: Service Date/Time: Sunday, June 04, 2017 05:02 - CONCLUSION: No significant change has occurred. Harshil Lantigua MD Brain MRI 06/01/17 0000 Signed Impressions: Service Date/Time: Thursday, June 01, 2017 15:33 - CONCLUSION: 1. 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 Loss of volume suggests that this is a long-standing process. 2. Subtle cerebral white matter disease of uncertain etiology. Chronic ischemic versus inflammatory process should be considered. 3. No evidence of acute infarct, hemorrhage, intra-axial mass. 4. Mucosal inflammatory disease in the sphenoid sinus. Osmany Armenta MD Head CT 05/30/17 0000 Signed Impressions: Service Date/Time: Wednesday, May 31, 2017 00:29 - CONCLUSION: 1. No acute hemorrhage or mass effect. 2. Evidence of acute sinusitis involving the sphenoid sinus. Jose Miguel Watson MD Cervical Spine CT 05/30/17 0000 Signed Impressions: Service Date/Time: Wednesday, May 31, 2017 00:29 - CONCLUSION: Negative trauma CT. Jose Miguel Watson MD Physical Exam CONSTITUTIONAL/GENERAL: This is an adequately nourished patient, in no apparent distress. Sedated. Intubated . [facility] TUBES/LINES/DRAINS: SKIN: No jaundice, rashes, or lesions. Skin temperature appropriate. Not diaphoretic. EYES: Pupils equal and round and reactive. Extraocular motions intact. No scleral icterus. No injection or drainage. Fundi not examined. ENT: Hearing not tested. Nose without bleeding or purulent drainage. Throat without visible erythema, exudates, masses, or lesions. orally intubated NECK: Trachea midline. Supple, nontender. CARDIOVASCULAR: Regular rate and rhythm without murmurs, gallops, or rubs. No JVD. Peripheral pulses symmetric. RESPIRATORY/CHEST: Symmetric, unlabored respirations. Clear to auscultation. Breath sounds equal bilaterally. No wheezes, rales, or rhonchi. GASTROINTESTINAL: Abdomen soft, non-tender, nondistended. No hepato-splenomegaly , or palpable masses. No guarding. Bowel sounds present. GENITOURINARY: Without palpable bladder distension. Andrade catheter in place. MUSCULOSKELETAL: Extremities without clubbing, cyanosis, or edema. No joint tenderness or effusion noted. No calf tenderness. No mottling or clubbing. NEUROLOGICAL: essentially unresponsive PSYCHIATRIC:unable to assess Assessment & Plan Remarks sp seizure Acute VDRF Coag negative staph bacteremia, - likely contaminant Lymphocytic pleocytosis ? post ictal findings on MRI sugg possible chronic infection Haemophylus influenza PNA BC cw contam will stop vanco cont CFTX for Haemophilus PNA Bess Suarez MD Jun 06, 2017 23:51
[2017-06-07] VITALS (19 sets, daily range): BP systolic 125–137; BP diastolic 73–83; PULSE 86–106; RESP 16–19; TEMP 98.9–100.3; O2SAT 91–95
[2017-06-07] MEDS ORDERED: PHARMACY ORDERED LAB ONE (01:45)
[2017-06-07] MEDS: FREE WATER G-TUBE SCH ×4 (06:22→23:05)
[2017-06-07] MEDS: LEVOTHYROXINE SODIUM 75 MCG TAB PO SCH (06:22)
[2017-06-07 07:07] LABS: HEMATOCRIT 28.6 % (35.0-46.0); MEAN CELL VOLUME 92.6 FL (80.0-100.0); MEAN CORPUSCULAR HEMOGLOBIN 31.3 PG (27.0-34.0); MEAN CORPUSCULAR HGB CONC 33.8 % (32.0-36.0); PLATELET COUNT 244 TH/MM3 (150-450); RED BLOOD COUNT 3.08 MIL/MM3 (4.00-5.30); RED CELL DISTRIBUTION WIDTH 14.5 % (11.6-17.2); REVIEW FLAG FINAL; WHITE BLOOD COUNT 3.5 TH/MM3 (4.0-11.0)
[2017-06-07 07:22] LABS: BICARBONATE 35.4 MEQ/L (21.0-32.0); POTASSIUM 3.6 MEQ/L (3.5-5.1)
[2017-06-07] MEDS: CHLORHEXIDINE 0.12% (ORAL KIT) 15 ML CUP MT SCH ×2 (07:45→20:00)
[2017-06-07] MEDS: levETIRAcetam INJ 100 ML IV SCH ×2 (07:45→21:02)
[2017-06-07] MEDS: SODIUM CHLORIDE 0.9% FLUSH 10 ML FLUSH IV FLUSH SCH ×2 (07:46→21:02)
[2017-06-07] MEDS: TRIFLUOPERAZINE 1 MG PO SCH ×2 (07:46→21:00)
[2017-06-07] MEDS: FAMOTIDINE 20 MG TAB PO SCH ×2 (07:47→21:03)
[2017-06-07] MEDS: fentaNYL DRIP 250 ML IV PRN (07:47)
[2017-06-07] MEDS: GABAPENTIN 100 MG CAP PO SCH ×3 (07:47→18:12)
[2017-06-07] MEDS: CHOLECALCIFEROL (VIT D3) 400 UNIT TAB PO SCH (07:47)
--- NOTE | 2017-06-07 10:19 | HHI.PR ---
Review/Management Daily Summary 06/02 no seizures restless, intubated moves 4 limbs mri brain seen , encephalocele! discussed with real estate services administrator dr Caesar ca for delfino Wall, consult neurosurgery 06/07 on fentanyl, loraine spoke with RN this am and yest as well yest spoke with palliative care she responds to somatosensory stim an ?starts opening eyes to verbal stim no apparent seizure recurrence encephalocele probably predisposes to chronic localized infectious process overall prognosis not encouraging for neuro recovery and will require continue aggressive intensive care for survival may need trach, peg and family apparently feels this is not in her best Subjective Subjective Comments intubated Active Medications Current Medications Medications (Trade) Dose Ordered Sig/Matt Route Start Time Stop Time Status Last Admin (NS Flush) 2 ml UNSCH PRN IV FLUSH 05/31/17 01:30 (NS Flush) 2 ml BID IV FLUSH 05/31/17 09:00 06/07/17 07:46 (Narcan Inj) 0.4 mg UNSCH PRN IV PUSH 05/31/17 01:30 (Pepcid) 20 mg Q12HR PO 05/31/17 09:00 06/07/17 07:47 (Vitamin D3) 400 units DAILY PO 06/01/17 09:00 06/07/17 07:47 (Clozaril) 400 mg HS PO 05/31/17 21:00 06/06/17 20:40 (Neurontin) 100 mg TID PO 05/31/17 13:00 06/07/17 07:47 (Synthroid) 75 mcg DAILY@0600 PO 06/01/17 06:00 06/07/17 06:22 Non-Formulary Medication 2 mg BID PO 05/31/17 21:00 06/07/17 07:46 (Tylenol) 650 mg Q4H PRN PO 05/31/17 13:30 06/06/17 05:19 (Zofran Inj) 4 mg Q6H PRN IV PUSH 05/31/17 13:30 Levetriacetam 100 ml @ 400 mls/hr Q12HR IV 06/01/17 09:00 06/07/17 07:45 (Peridex 0.12% Liq) 15 ml BID@08,20 MT 06/01/17 20:00 06/07/17 07:45 Propofol 100 ml @ 1.671 mls/ hr TITRATE PRN IV 06/01/17 08:30 06/05/17 01:02 Potassium Chloride 100 ml @ 50 mls/hr Q2H PRN IV 06/03/17 12:00 Potassium Chloride 100 ml @ 50 mls/hr Q2H PRN IV 06/03/17 12:00 (K-Lyte Cl Eff) 50 meq UNSCH PRN PO 06/03/17 12:00 Potassium Chloride 100 ml @ 25 mls/hr UNSCH PRN IV 06/03/17 12:00 Potassium Chloride 100 ml @ 50 mls/hr Q2H PRN IV 06/03/17 12:00 Magnesium Sulfate 4 gm/Sodium Chloride 100 ml @ 50 mls/hr UNSCH PRN IV 06/03/17 12:00 (Mag-Ox) 800 mg UNSCH PRN PO 06/03/17 12:00 Magnesium Sulfate 2 gm/Sodium Chloride 100 ml @ 50 mls/hr UNSCH PRN IV 06/03/17 12:00 (K-Phos) 2,000 mg Q4H PRN PO 06/03/17 12:00 Sodium Phosphate 30 mmol/Sodium Chloride 250 ml @ 42 mls/hr UNSCH PRN IV 06/03/17 12:00 (K-Phos) 2,000 mg UNSCH PRN PO/TUBE 06/03/17 12:00 06/04/17 08:56 Potassium Phosphate 30 mmol/ Sodium Chloride 260 ml @ 42 mls/hr UNSCH PRN IV 06/03/17 12:00 Ceftriaxone Sodium 2000 mg/ Sodium Chloride 100 ml @ 200 mls/hr Q24H IV 06/04/17 17:00 06/06/17 16:50 (Haldol Inj) 2 mg Q4H PRN IV PUSH 06/04/17 14:15 Dexmedetomidine HCl 200 mcg/ Sodium Chloride 52 ml @ 8.32 mls/hr TITRATE PRN IV 06/04/17 13:30 06/05/17 10:27 Fentanyl Citrate 250 ml @ 5 mls/hr TITRATE PRN IV 06/05/17 07:30 06/07/17 07:47 (Free Water) VOLUME: 200 ML Q6HR G-TUBE 06/05/17 08:15 06/07/17 06:22 Allergies Allergies Coded Allergies penicillin G (Unverified Allergy, Severe, 02/08/17) Sulfa (Sulfonamide Antibiotics) (Unverified Allergy, Intermediate, 02/08/17) Exam I&O / VS Vital Signs Date Time Temp Pulse Resp B/P (MAP) Pulse Ox O2 Delivery O2 Flow Rate FiO2 06/07/17 08:53 92 55 06/07/17 06:00 92 06/07/17 04:23 92 55 06/07/17 04:00 99.8 94 16 127/76 (93) 93 06/07/17 04:00 55 06/07/17 04:00 92 06/07/17 02:00 96 06/07/17 00:31 92 55 06/07/17 00:00 55 06/07/17 00:00 94 06/07/17 00:00 100.3 94 16 137/83 (101) 94 06/06/17 22:00 93 06/06/17 21:09 92 55 06/06/17 20:00 85 06/06/17 20:00 55 06/06/17 20:00 99.6 92 16 125/77 (93) 92 06/06/17 19:00 Mechanical Ventilator 20.00 55 06/06/17 18:00 84 06/06/17 16:00 100.1 84 20 126/77 (93) 94 06/06/17 16:00 55 06/06/17 16:00 84 06/06/17 15:35 93 55 06/06/17 12:37 94 55 06/06/17 12:00 55 06/06/17 12:00 99.6 89 23 132/80 (97) 95 06/06/17 12:00 89 Objective Micro and Labs Laboratory Tests Test 06/07/17 06:35 White Blood Count 3.5 Red Blood Count 3.08 Hemoglobin 9.7 Hematocrit 28.6 Mean Corpuscular Volume 92.6 Mean Corpuscular Hemoglobin 31.3 Mean Corpuscular Hemoglobin Concent 33.8 Red Cell Distribution Width 14.5 Platelet Count 244 Mean Platelet Volume 7.9 Blood Urea Nitrogen 13 Creatinine 0.40 Random Glucose 132 Calcium Level 8.1 Sodium Level 151 Potassium Level 3.6 Chloride Level 112 Carbon Dioxide Level 35.4 Anion Gap 4 Estimat Glomerular Filtration Rate 163 Date/Time Source Procedure Growth Status 06/04/17 04:35 Blood Peripheral Aerobic Blood Culture - Preliminary NO GROWTH IN 2 DAYS Resulted 12/9/17 04:35 Blood Peripheral Anaerobic Blood Culture - Preliminary NO GROWTH IN 2 DAYS Resulted 06/01/17 09:00 Cerebral Spinal Fluid Lumbar Puncture Gram Stain - Final Complete 06/01/17 09:00 Cerebral Spinal Fluid Lumbar Puncture CSF Culture - Final NO GROWTH IN 72 HOURS Complete 06/04/17 06:00 Sputum Endotracheal Gram Stain - Final Complete 06/04/17 06:00 Sputum Endotracheal Sputum Culture - Final NO GROWTH IN 48 HOURS. Complete Florentin Caicedo MD Jun 07, 2017 10:19
--- NOTE | 2017-06-07 12:59 | HHI.HCPN ---
Reason for visit a. To assist with evaluation and management of symptoms including:shortness of breath, altered mental status. b. To assist medical decision maker(s) with: better understanding of current medical conditions; weighing benefits/burdens of medical treatment options; making medical treatment decisions. Subjective/Interval History Patient seen and examined in ICU. Patient is intubated,sedated on a mechanical ventilation. No eye opening to stimulation. Patient slightly withdrawing to noxious stimulation with bilateral lower extremities. Only facial grimacing noted to noxious stimulation to bilateral upper extremities. Tmax today 100.3 degrees F orally, HR 90s, SBP 120s-130s. O2 saturation low 90s on FIO2 55%. Laboratory workup today revealing WBC 3.5, Hgb 9.7, Hct 28.6, plt count 244, sodium 151, potassium 3.6, BUN/Creat 13/0.40. No recent imaging. ID following. Patient seen by Dr. Caicedo neurology who indicates that patient`s overall prognosis not encouraging for neuro recovery and will require continue aggressive intensive care for survival may need trach, peg. Received telephone call from patient`s mother who indicated that patient`s sister Mervat is travelling from [place] and will arrive most likely morning and would like to have patient compassionately withdrawn from life support after patient`s sister arrives. Patient`s who is her proxy will call to confirm the plan. Case discussed over telephone with Dr. Wall, Dr. Mohr and bedside RN Jade. Family/friend interactions Telephone conversation with patient`s mother Noy Hodges. . Advance Directives Living Will: Never completed Health Care Surrogate: Never completed Durable Power of Composite Technician: Never completed Advance Directive Specifics Health Care Surrogate(s): Patient`s health care proxy is her Neal Bustosnum [phone] . Objective Vital Signs Date Time Temp Pulse Resp B/P (MAP) Pulse Ox O2 Delivery O2 Flow Rate FiO2 06/07/17 08:53 92 55 06/07/17 06:00 92 06/07/17 04:23 92 55 06/07/17 04:00 99.8 94 16 127/76 (93) 93 06/07/17 04:00 55 06/07/17 04:00 92 06/07/17 02:00 96 06/07/17 00:31 92 55 12/12/17 00:00 55 06/07/17 00:00 94 06/07/17 00:00 100.3 94 16 137/83 (101) 94 06/06/17 22:00 93 06/06/17 21:09 92 55 06/06/17 20:00 85 06/06/17 20:00 55 06/06/17 20:00 99.6 92 16 125/77 (93) 92 06/06/17 19:00 Mechanical Ventilator 20.00 55 06/06/17 18:00 84 06/06/17 16:00 100.1 84 20 126/77 (93) 94 06/06/17 16:00 55 06/06/17 16:00 84 06/06/17 15:35 93 55 06/06/17 12:37 94 55 Intake & Output 06/07/17 06/07/17 07:00 19:00 Intake Total 1229.3 ml Output Total 1100 ml Balance 129.3 ml IV Total 162.3 ml Tube Feeding 527 ml Other 540 ml Output Urine Total 1100 ml Stool Total 0 ml # Bowel Movements 0 Physical Exam CONSTITUTIONAL/GENERAL: This is an adequately nourished patient, in no apparent distress. TUBES/LINES/DRAINS: PIV, ETT, OGT, SCD, FC SKIN: No jaundice, rashes, or lesions. Ecchymoses on upper extremities. No wounds seen anteriorly. Skin temperature appropriate. Not diaphoretic. HEAD: Atraumatic. Normocephalic. EYES: Pupils equal and round and reactive. Extraocular motions intact. No scleral icterus. No injection or drainage. Fundi not examined. ENT: Nose without bleeding or purulent drainage. Copious oral secretions. NECK: Trachea midline. Supple, nontender. CARDIOVASCULAR: Regular rate and rhythm without murmurs, gallops, or rubs. No JVD. Peripheral pulses symmetric. RESPIRATORY/CHEST: Symmetric, unlabored respirations. Clear to auscultation. Breath sounds equal bilaterally. No wheezes, rales, or rhonchi. GASTROINTESTINAL: Abdomen soft, non-tender, nondistended. No hepato-splenomegaly , or palpable masses. No guarding. Bowel sounds present. GENITOURINARY: Without palpable bladder distension. Andrade catheter in place. MUSCULOSKELETAL: Extremities without clubbing, cyanosis, or edema. No joint tenderness or effusion noted. No calf tenderness. No mottling or clubbing. NEUROLOGICAL: Intubated, sedated on mechanical ventilation. Slightly withdraws from noxious stimulation with BLE, only noted facial grimacing to noxious stimulation to BUE PSYCHIATRIC: Unable to assess due to clinical condition . Diagnostic Tests Laboratory Laboratory Tests Test 06/05/17 03:05 06/06/17 05:45 06/07/17 06:35 Blood Gas Puncture Site RT RADIAL Blood Gas Patient Temperature 98.6 Blood Gas HCO3 24 mmol/L (22-26) Blood Gas Base Excess 0.1 mmol/L (-2-2) Blood Gas Oxygen Saturation 91 % (90-100) Arterial Blood pH 7.43 (7.380-7.420) Arterial Blood Partial Pressure CO2 37 mmHg (38-42) Arterial Blood Partial Pressure O2 64 mmHg (61-120) Arterial Blood Oxygen Content 12.0 Vol % (12.0-20.0) Arterial Blood Carboxyhemoglobin 1.0 % (0-4) Arterial Blood Methemoglobin 1.2 % (0-2) Blood Gas Hemoglobin 9.4 G/DL (12.0-16.0) Oxygen Delivery Device VENTILATOR Blood Gas Ventilator Setting PRVC/AC Blood Gas Inspired Oxygen 40 % White Blood Count 4.1 TH/MM3 (4.0-11.0) 3.5 TH/MM3 (4.0-11.0) Red Blood Count 3.03 MIL/MM3 (4.00-5.30) 3.08 MIL/MM3 (4.00-5.30) Hemoglobin 9.4 GM/DL (11.6-15.3) 9.7 GM/DL (11.6-15.3) Hematocrit 28.1 % (35.0-46.0) 28.6 % (35.0-46.0) Mean Corpuscular Volume 92.8 FL (80.0-100.0) 92.6 FL (80.0-100.0) Mean Corpuscular Hemoglobin 31.0 PG (27.0-34.0) 31.3 PG (27.0-34.0) Mean Corpuscular Hemoglobin Concent 33.4 % (32.0-36.0) 33.8 % (32.0-36.0) Red Cell Distribution Width 14.5 % (11.6-17.2) 14.5 % (11.6-17.2) Platelet Count 204 TH/MM3 (150-450) 244 TH/MM3 (150-450) Mean Platelet Volume 8.7 FL (7.0-11.0) 7.9 FL (7.0-11.0) Blood Urea Nitrogen 13 MG/DL (7-18) 13 MG/DL (7-18) Creatinine 0.50 MG/DL (0.50-1.00) 0.40 MG/DL (0.50-1.00) Random Glucose 146 MG/DL (74-106) 132 MG/DL (74-106) Calcium Level 7.7 MG/DL (8.5-10.1) 8.1 MG/DL (8.5-10.1) Sodium Level 152 MEQ/L (136-145) 151 MEQ/L (136-145) Potassium Level 3.8 MEQ/L (3.5-5.1) 3.6 MEQ/L (3.5-5.1) Chloride Level 117 MEQ/L (98-107) 112 MEQ/L (98-107) Carbon Dioxide Level 31.7 MEQ/L (21.0-32.0) 35.4 MEQ/L (21.0-32.0) Anion Gap 3 MEQ/L (5-15) 4 MEQ/L (5-15) Estimat Glomerular Filtration Rate 126 ML/MIN (>89) 163 ML/MIN (>89) Rapid Plasma Reagin NON-REACTIVE (NON-REACTVE) Result Diagram: 06/07/17 0635 06/07/17 0635 Imaging Last Impressions Chest X-Ray 06/04/17 0600 Signed Impressions: Service Date/Time: Sunday, June 04, 2017 05:02 - CONCLUSION: No significant change has occurred. Harshil Lantigua MD Brain MRI 06/01/17 0000 Signed Impressions: Service Date/Time: Thursday, June 01, 2017 15:33 - CONCLUSION: 1. 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 Loss of volume suggests that this is a long-standing process. 2. Subtle cerebral white matter disease of uncertain etiology. Chronic ischemic versus inflammatory process should be considered. 3. No evidence of acute infarct, hemorrhage, intra-axial mass. 4. Mucosal inflammatory disease in the sphenoid sinus. Osmany Armenta MD Head CT 05/30/17 0000 Signed Impressions: Service Date/Time: Wednesday, May 31, 2017 00:29 - CONCLUSION: 1. No acute hemorrhage or mass effect. 2. Evidence of acute sinusitis involving the sphenoid sinus. Jose Miguel Watson MD Cervical Spine CT 05/30/17 0000 Signed Impressions: Service Date/Time: Wednesday, May 31, 2017 00:29 - CONCLUSION: Negative trauma CT. Jose Miguel Watson MD Procedures 06/01/17-intubated 06/01/17-diagnostic lumbar puncture Assessment and Plan Disease Oriented Problem List: (1) Acute encephalopathy (2) Hypoxia (3) Seizure disorder (4) Schizophrenia (5) Hypothyroidism Symptom Scale: (1) Shortness of breath 0-10 Scale: Unable to quantify Comment: Multifactorial. Currently intubated on mechanical ventilation . (2) Altered mental status 0-10 Scale: Unable to quantify Comment: Multifactorial. Hx of seizures, schizophrenia. . Pertinent Non-Medical Issues Psychosocial:Patient was born in [place] and moved to [place] at the age of 12. Patient completed high school and took a few college credits and then dropped out of college. Patient moved to [place] after he her second . Patient has been twice but has been to her second for 32 years. Patient is still legally to her second but she left him in August of 2015 when she voluntarily checked herself into the [facility] in [place], [place]. She was then discharged to [facility] on May,. Patient enjoys listening to the radio. Spiritual:Patient is voodoo and according to her and mother will benefits from health science writer visits. Legal:Patient does not have advance directives Ethical issues impacting care: None identified at this time Important Contacts - Health care proxy- Jovita De Jesus [phone] Mother-Carroll Chaudhari [phone] (home); [phone] (cell) Sister-Mario Crowell [phone] Brother-Jamilah Paniaguajacquelin [phone] . Prognosis Mrs Hussein is a 61 years old female with a past medical history of seizures, anxiety, schizophrenia, COPD, and hypothyroidism. Patient is a resident at [facility]. Patient was brought into the ER via EMS on after she was found on the floor at the residential postictal and incontinent of urine. Clinical course complicated with agitation, respiratory failure and encephalopathy. Patient intubated and placed on mechanical ventilation on 06/01/17. Since then patient has not been showing any improvement neurologically. Patient remains at high risk for further complications, deterioration and decline. . Code Status: No Code Plan PLAN: Legal decision maker: Patient is currently intubated on mechanical ventilation and not capacitated to make her own medical decisions, unsure if patient will regain capacity to make her own medical decisions.Patient has never completed a HCS form. She is still legally and according to [place] Statute her will act as her Health Care Proxy. Goals: Patient made DNR today by her . Patient`s will most likely progress to compassionate withdrawal from life support on June 08, 2017. Patients` will most likely transition patient to comfort care only through hospice services after compassionate withdrawal from life support. Plan was to compassionately withdraw patient from life support tomorrow- Friday 06/08 but family will most likely postpone to . Received telephone call from patient`s mother who indicated that patient`s sister Mervat is travelling from [place] and will arrive most likely 06/09 morning and would like to have patient compassionately withdrawn from life support after patient`s sister arrives. Patient`s who is her proxy will call to confirm the plan. CODE STATUS: DNR/DNI SYMPTOMS: * Shortness of breath: Multifactorial. Patient has a history of COPD. Most likely aspirated.Chest x-ray showed RML pneumonitis. Patient went into respiratory failure requiring intubation and placed on mechanical ventilation. Patient on Ceftriaxone for Haemophilus PNA. Currently on FIO2 55% with O2 saturation in the low 90s. * Agitation: Patient has a history of schizophrenia and came in after an unwitnessed seizure. Patient on Keppra for seizures. Patient on Clozapine 400mg p o daily * Altered mental status: Multifactorial. Patient has a history of seizures and schizophrenia. Patient`s mental status not improving. She is currently on Fentanyl 50mcg/hr. Palliative care will continue to follow the patient during hospital course as condition evolves, to assist patient/decision-maker with understanding of their medical conditions, weighing benefits/burdens of treatment options, for clarification of goals of treatment. Additionally will assist with any symptoms of palliative concern Dasha Muro Jun 07, 2017 12:59
[2017-06-07] MEDS: PROPOFOL 1000 MG/100 ML INJ 100 ML IV PRN (14:09)
--- NOTE | 2017-06-07 15:39 | HHI.CCPN ---
Subjective Remarks/Hospital Course 61 y/o woman found down after a probable seizure at a local intermediate. Remains obtunded. Gas exchange acceptable but airway control marginal. Neurology Service requests MRI which will require intubation and mechanical ventilation for airway control. EEG this morning with no seizures. 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 High airway pressures after aspiration pneumonitis (aspirated prior to intubation). Remains largely obtunded. 06/03 SBT today with attempt to wean and extubate failed due to rapid shallow breathing. No other events overnight 06/04: still encephalopathic. rapid breathing persists. discussed with family member today who states she had a very poor quality of life in the [facility] she is in, and they are not sure how much aggressive treatment she would want if they knew her prognosis was poor. 06/05: sodium rising, mental status still poor. tachypneic overnight. intermittently agitated. 06/06: Poor neurological progress. 06/07: Remains encephalopathic, orally intubated on mechanical ventilation. Family is deciding regarding transition to comfort measures. Palliative care following. Tolerating tube feeds. Objective Vital Signs Date Time Temp Pulse Resp B/P (MAP) Pulse Ox O2 Delivery O2 Flow Rate FiO2 06/07/17 13:16 91 55 06/07/17 06:00 92 06/07/17 04:00 99.8 16 127/76 (93) 06/06/17 19:00 Mechanical Ventilator 20.00 Intake and Output 06/07/17 06/07/17 06/08/17 08:00 16:00 00:00 Intake Total 1129.3 ml Output Total 1100 ml Balance 29.3 ml Result Diagram: 06/07/17 0635 06/07/17 0635 Imaging Last 24 hours Impressions Chest X-Ray 06/03/17 0000 Signed Impressions: Service Date/Time: Saturday, June 03, 2017 05:23 - CONCLUSION: OG tube placement as above. Harshil Lantigua MD Objective Remarks Gen: Obtunded. Unresponsive. Head: Atraumatic. Lungs: equal chest rise. tachypneic. Acceptable air movement. Heart: RRR, no JVD. Abdomen: Benign, soft, no guarding. Extremities: Warm, well perfused. Neuro: Withdraws 4 limbs to noxious stimulation. Pupils 2 mm, reactive. Weak cough reflex. No purposeful movement. A/P Assessment and Plan Assessment and Plan: 61yF with schizophrenia who presents with acute encephalopathy and possible encephalitis with secondary bacterial pneumonia. continues to be encephalopathic. will again hold as many long-acting sedating drugs as possible, however, patient is on a number of anti-psychotics which we need to continue for her underlying disease processes. will add fentanyl for persistent cough and vent dyssynchrony. Remains critically ill with encephalopathy which has not improved and led to her respiratory failure. off pathway. no meaningful improvements over the last 48h. Seizures: Breakthrough seizure, Altered mental status likely secondary to postictal state vs viral NETWORK SECURITY ENGINEER infection. Antiviral and antibiotics per ID recommendation Schizophrenia continue home meds Acute encephalopathy - persistent, severe. frequent neuro checks add fentanyl wean off precedex and propofol as tolerated. Infectious Disease: Fever 101 on presentation. Likely from sinusitis. Blood cultures Stap X 3/4 bottles. Narrowed to Vancomycin by ID Service. continue rocephin Acute hypoxic and hypercarbic Respiratory Failure: persistent. Hypoxemia and aspiration prior to intubation (not ventilator associated). Coarse breath sounds persist on exam. Chest x-ray RML pneumonitis. - PRVC vent mode, intubated /. minimal improvements. no weaning until mental status improved. Hypothyroidism: - Continue Synthroid. Check TSH -> NL tube feeds. Continue free water. Palliative care and discussions with family. They're leaning towards transition to comfort measures rather than tracheostomy and PEG tube placement. Awaiting arrival of family. Saud Mohr MD Jun 07, 2017 15:39
[2017-06-07] MEDS: cefTRIAXone INJ 2,000 MG in SODIUM CHLORIDE 0.9% INJ 100 ML IV SCH (16:07)
[2017-06-07] MEDS: cloZAPine 100 MG TAB PO SCH (21:02)
[2017-06-08] VITALS (16 sets, daily range): BP systolic 109–125; BP diastolic 64–94; PULSE 74–94; RESP 16–19; TEMP 98.5–100.8; O2SAT 92–98
[2017-06-08] MEDS: ACETAMINOPHEN 325 MG TAB PO PRN ×2 (01:06→05:00)
[2017-06-08] MEDS: FREE WATER G-TUBE SCH ×3 (04:59→17:01)
[2017-06-08] MEDS: LEVOTHYROXINE SODIUM 75 MCG TAB PO SCH (05:00)
[2017-06-08 06:56] LABS: HEMATOCRIT 28.9 % (35.0-46.0); MEAN CELL VOLUME 92.7 FL (80.0-100.0); MEAN CORPUSCULAR HEMOGLOBIN 31.4 PG (27.0-34.0); MEAN CORPUSCULAR HGB CONC 33.9 % (32.0-36.0); PLATELET COUNT 274 TH/MM3 (150-450); RED BLOOD COUNT 3.12 MIL/MM3 (4.00-5.30); REVIEW FLAG FINAL; WHITE BLOOD COUNT 3.3 TH/MM3 (4.0-11.0)
[2017-06-08 07:24] LABS: POTASSIUM 3.5 MEQ/L (3.5-5.1)
[2017-06-08] MEDS: CHLORHEXIDINE 0.12% (ORAL KIT) 15 ML CUP MT SCH ×2 (08:00→20:32)
[2017-06-08] MEDS: levETIRAcetam INJ 100 ML IV SCH ×2 (08:30→20:31)
[2017-06-08] MEDS: FAMOTIDINE 20 MG TAB PO SCH ×2 (08:31→20:31)
[2017-06-08] MEDS: CHOLECALCIFEROL (VIT D3) 400 UNIT TAB PO SCH (08:31)
[2017-06-08] MEDS: TRIFLUOPERAZINE 1 MG PO SCH ×2 (08:31→20:31)
[2017-06-08] MEDS: SODIUM CHLORIDE 0.9% FLUSH 10 ML FLUSH IV FLUSH SCH ×2 (08:31→20:32)
[2017-06-08] MEDS: GABAPENTIN 100 MG CAP PO SCH ×3 (08:31→17:01)
[2017-06-08] MEDS: POTASSIUM CHLOR 20 MEQ PREMIX 100 ML IV PRN ×2 (08:32→12:37)
--- NOTE | 2017-06-08 10:57 | HHI.CCPN ---
Subjective Remarks/Hospital Course 61 y/o woman found down after a probable seizure at a local halfway. Remains obtunded. Gas exchange acceptable but airway control marginal. Neurology Service requests MRI which will require intubation and mechanical ventilation for airway control. EEG this morning with no seizures. 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 High airway pressures after aspiration pneumonitis (aspirated prior to intubation). Remains largely obtunded. 06/03 SBT today with attempt to wean and extubate failed due to rapid shallow breathing. No other events overnight 06/04: still encephalopathic. rapid breathing persists. discussed with family member today who states she had a very poor quality of life in the half-way she is in, and they are not sure how much aggressive treatment she would want if they knew her prognosis was poor. 06/05: sodium rising, mental status still poor. tachypneic overnight. intermittently agitated. 06/06: Poor neurological progress. 06/07: Remains encephalopathic, orally intubated on mechanical ventilation. Family is deciding regarding transition to comfort measures. Palliative care following. Tolerating tube feeds. 06/08: Remains encephalopathic, no improvement in neurologic status. Remains orally intubated on mechanical ventilation. Family planning to eventually transition to comfort measures following their arrival. Objective Vital Signs Date Time Temp Pulse Resp B/P (MAP) Pulse Ox O2 Delivery O2 Flow Rate FiO2 06/08/17 09:04 98 70 06/08/17 06:00 88 06/08/17 04:00 99.5 18 113/64 (80) 06/07/17 19:00 Mechanical Ventilator 06/06/17 19:00 20.00 Intake and Output 06/08/17 06/08/17 06/09/17 08:00 16:00 00:00 Intake Total 874.38 ml Output Total 725 ml Balance 149.38 ml Result Diagram: 06/08/17 0523 06/08/17 0523 Imaging Last 24 hours Impressions Chest X-Ray 06/03/17 0000 Signed Impressions: Service Date/Time: Saturday, June 03, 2017 05:23 - CONCLUSION: OG tube placement as above. Harshil Lantigua MD Objective Remarks Gen: Obtunded. Unresponsive. Head: Atraumatic. Lungs: equal chest rise. tachypneic. Acceptable air movement. Heart: RRR, no JVD. Abdomen: Benign, soft, no guarding. Extremities: Warm, well perfused. Neuro: Withdraws 4 limbs to noxious stimulation. Pupils 2 mm, reactive. Weak cough reflex. No purposeful movement. A/P Assessment and Plan Assessment and Plan: 61yF with schizophrenia who presents with acute encephalopathy and possible encephalitis with secondary bacterial pneumonia. continues to be encephalopathic. will again hold as many long-acting sedating drugs as possible, however, patient is on a number of anti-psychotics which we need to continue for her underlying disease processes. will add fentanyl for persistent cough and vent dyssynchrony. Remains critically ill with encephalopathy which has not improved and led to her respiratory failure. off pathway. no meaningful improvements over the last 48h. Seizures: Breakthrough seizure, Altered mental status likely secondary to postictal state vs viral ABATTOIR SUPERVISOR infection. Antiviral and antibiotics per ID recommendation Schizophrenia continue home meds Acute encephalopathy - persistent, severe. frequent neuro checks add fentanyl wean off precedex and propofol as tolerated. Infectious Disease: Fever 101 on presentation. Likely from sinusitis. Blood cultures Stap X 3/4 bottles. Narrowed to Vancomycin by ID Service. continue rocephin Acute hypoxic and hypercarbic Respiratory Failure: persistent. Hypoxemia and aspiration prior to intubation (not ventilator associated). Coarse breath sounds persist on exam. Chest x-ray RML pneumonitis. - PRVC vent mode, intubated 06/01. minimal improvements. no weaning until mental status improved. Hypothyroidism: - Continue Synthroid. Check TSH -> NL tube feeds. Continue free water. Palliative care and discussions with family. They're leaning towards transition to comfort measures rather than tracheostomy and PEG tube placement. Awaiting arrival of family. Saud Mohr MD Jun 08, 2017 10:57
--- NOTE | 2017-06-08 12:01 | HHI.HCPN ---
Reason for visit a. To assist with evaluation and management of symptoms including:shortness of breath, altered mental status. b. To assist medical decision maker(s) with: better understanding of current medical conditions; weighing benefits/burdens of medical treatment options; making medical treatment decisions. Subjective/Interval History Patient seen and examined in ICU. Remains intubated,sedated on a mechanical ventilation. Patient`s FIO2 increased to 70% from 55% yesterday and patient`s o2 saturation is in the low to mid 90s. No eye opening to stimulation. Patient withdrawing to deep noxious stimulation with all extremities. Tmax today 100.8 degrees F orally, HR 80s, SBP 100s-120s. Laboratory workup today revealing WBC 3.3, Hgb 9.8, Hct 28.9, plt count 274, sodium 149, potassium 3.5, BUN/Creat 15/0.45. No recent imaging. Propofol infusing at 10mcg/ kg.min and Fentanyl infusing at 50mcg/hr. Telephone conversation with patients who intends to be here tomorrow at 0900hrs for tentative compassionate withdrawal from life support. Patient`s also requested hospice services after patient is compassionately withdrawn from life support. Patient`s sister also called and confirmed that she is flying from [place] today and intends to be here tomorrow to see her sister prior to compassionate withdrawal from life support. Family no longer wants to pursue aggressive treatment, they only desire comfort measures for their loved one Becky. Research Development Director services notified Case discussed over telephone with Dr. Mohr and bedside RN Jade. Family/friend interactions Telephone conversation with patient`s Neal and patient`s sister Mervat. Plan is compassionate withdrawal from life support tomorrow . Advance Directives Living Will: Never completed Health Care Surrogate: Never completed Durable Power of Furniture Painter: Never completed Advance Directive Specifics Health Care Surrogate(s): Patient`s health care proxy is her Neal Jovita [phone] . Objective Vital Signs Date Time Temp Pulse Resp B/P (MAP) Pulse Ox O2 Delivery O2 Flow Rate FiO2 06/08/17 09:04 98 70 06/08/17 06:00 88 06/08/17 04:24 95 70 06/08/17 04:00 70 06/08/17 04:00 99.5 86 18 113/64 (80) 95 06/08/17 04:00 86 06/08/17 02:00 88 06/08/17 00:00 94 06/08/17 00:00 100.8 94 19 120/68 (85) 94 06/08/17 00:00 70 06/07/17 23:54 94 70 06/07/17 22:00 96 06/07/17 21:02 95 70 06/07/17 20:00 70 06/07/17 20:00 94 06/07/17 20:00 100.2 94 18 125/73 (90) 94 06/07/17 19:00 Mechanical Ventilator 70 06/07/17 18:00 87 06/07/17 16:23 95 70 06/07/17 16:00 87 06/07/17 16:00 70 06/07/17 16:00 100.1 87 17 128/74 (92) 94 06/07/17 14:00 106 06/07/17 13:16 91 55 06/07/17 12:00 55 06/07/17 12:00 86 06/07/17 12:00 99.1 86 17 131/78 (95) 92 Intake & Output 06/08/17 06/08/17 07:00 19:00 Intake Total 974.38 ml Output Total 725 ml Balance 249.38 ml IV Total 173.38 ml Tube Feeding 401 ml Other 400 ml Output Urine Total 725 ml # Bowel Movements 0 Physical Exam CONSTITUTIONAL/GENERAL: This is an adequately nourished patient, in no apparent distress. TUBES/LINES/DRAINS: PIV, ETT, OGT, SCD, FC SKIN: No jaundice, rashes, or lesions. Ecchymoses on upper extremities. No wounds seen anteriorly. Skin temperature appropriate. Not diaphoretic. HEAD: Atraumatic. Normocephalic. EYES: Pupils equal and round and reactive. Extraocular motions intact. No scleral icterus. No injection or drainage. Fundi not examined. ENT: Nose without bleeding or purulent drainage. Copious oral secretions. NECK: Trachea midline. Supple, nontender. CARDIOVASCULAR: Regular rate and rhythm without murmurs, gallops, or rubs. No JVD. Peripheral pulses symmetric. RESPIRATORY/CHEST: Symmetric, unlabored respirations. Clear to auscultation. Breath sounds equal bilaterally. No wheezes, rales, or rhonchi. FIO2 increased to 70% from 55% yesterday. GASTROINTESTINAL: Abdomen soft, non-tender, nondistended. No hepato-splenomegaly , or palpable masses. No guarding. Bowel sounds present. GENITOURINARY: Without palpable bladder distension. Andrade catheter in place. MUSCULOSKELETAL: Extremities without clubbing, cyanosis, or edema. No joint tenderness or effusion noted. No calf tenderness. No mottling or clubbing. NEUROLOGICAL: Intubated, sedated on mechanical ventilation. Slightly withdraws from noxious stimulation with BLE, only noted facial grimacing to noxious stimulation to BUE PSYCHIATRIC: Unable to assess due to clinical condition . Diagnostic Tests Laboratory Laboratory Tests Test 06/06/17 05:45 06/07/17 06:35 06/08/17 05:23 White Blood Count 4.1 TH/MM3 (4.0-11.0) 3.5 TH/MM3 (4.0-11.0) 3.3 TH/MM3 (4.0-11.0) Red Blood Count 3.03 MIL/MM3 (4.00-5.30) 3.08 MIL/MM3 (4.00-5.30) 3.12 MIL/MM3 (4.00-5.30) Hemoglobin 9.4 GM/DL (11.6-15.3) 9.7 GM/DL (11.6-15.3) 9.8 GM/DL (11.6-15.3) Hematocrit 28.1 % (35.0-46.0) 28.6 % (35.0-46.0) 28.9 % (35.0-46.0) Mean Corpuscular Volume 92.8 FL (80.0-100.0) 92.6 FL (80.0-100.0) 92.7 FL (80.0-100.0) Mean Corpuscular Hemoglobin 31.0 PG (27.0-34.0) 31.3 PG (27.0-34.0) 31.4 PG (27.0-34.0) Mean Corpuscular Hemoglobin Concent 33.4 % (32.0-36.0) 33.8 % (32.0-36.0) 33.9 % (32.0-36.0) Red Cell Distribution Width 14.5 % (11.6-17.2) 14.5 % (11.6-17.2) 14.0 % (11.6-17.2) Platelet Count 204 TH/MM3 (150-450) 244 TH/MM3 (150-450) 274 TH/MM3 (150-450) Mean Platelet Volume 8.7 FL (7.0-11.0) 7.9 FL (7.0-11.0) 8.0 FL (7.0-11.0) Blood Urea Nitrogen 13 MG/DL (7-18) 13 MG/DL (7-18) 15 MG/DL (7-18) Creatinine 0.50 MG/DL (0.50-1.00) 0.40 MG/DL (0.50-1.00) 0.45 MG/DL (0.50-1.00) Random Glucose 146 MG/DL (74-106) 132 MG/DL (74-106) 126 MG/DL (74-106) Calcium Level 7.7 MG/DL (8.5-10.1) 8.1 MG/DL (8.5-10.1) 8.2 MG/DL (8.5-10.1) Sodium Level 152 MEQ/L (136-145) 151 MEQ/L (136-145) 149 MEQ/L (136-145) Potassium Level 3.8 MEQ/L (3.5-5.1) 3.6 MEQ/L (3.5-5.1) 3.5 MEQ/L (3.5-5.1) Chloride Level 117 MEQ/L (98-107) 112 MEQ/L (98-107) 109 MEQ/L (98-107) Carbon Dioxide Level 31.7 MEQ/L (21.0-32.0) 35.4 MEQ/L (21.0-32.0) 39.0 MEQ/L (21.0-32.0) Anion Gap 3 MEQ/L (5-15) 4 MEQ/L (5-15) 1 MEQ/L (5-15) Estimat Glomerular Filtration Rate 126 ML/MIN (>89) 163 ML/MIN (>89) 143 ML/MIN (>89) Rapid Plasma Reagin NON-REACTIVE (NON-REACTVE) Result Diagram: 06/08/17 0523 06/08/17 0523 Procedures 06/01/17-intubated 06/01/17-diagnostic lumbar puncture Assessment and Plan Disease Oriented Problem List: (1) Acute encephalopathy (2) Hypoxia (3) Seizure disorder (4) Schizophrenia (5) Hypothyroidism Symptom Scale: (1) Shortness of breath 0-10 Scale: Unable to quantify Comment: Multifactorial. Currently intubated on mechanical ventilation . (2) Altered mental status 0-10 Scale: Unable to quantify Comment: Multifactorial. Hx of seizures, schizophrenia. . Pertinent Non-Medical Issues Psychosocial:Patient was born in [place] and moved to [place] at the age of 12. Patient completed high school and took a few college credits and then dropped out of college. Patient moved to [place] after he her second . Patient has been twice but has been to her second for 32 years. Patient is still legally to her second but she left him in August of 2015 when she voluntarily checked herself into the [facility]) in [place], [place]. She was then discharged to [facility] on May,. Patient enjoys listening to the radio. Spiritual:Patient is voodoo and according to her and mother will benefits from cosmetic sales consultant visits. Legal:Patient does not have advance directives Ethical issues impacting care: None identified at this time Important Contacts - Health care proxy- Jovita De Jesus [phone] Mother-Carroll Chaudhari [phone] (home); [phone] (cell) Sister-Mario Crowell [phone] Brother-SivaBebo [phone] . Prognosis Mrs Hussein is a 61 years old female with a past medical history of seizures, anxiety, schizophrenia, COPD, and hypothyroidism. Patient is a resident at [facility]. Patient was brought into the ER via EMS on after she was found on the floor at the senior care postictal and incontinent of urine. Clinical course complicated with agitation, respiratory failure and encephalopathy. Patient intubated and placed on mechanical ventilation on 06/01/17. Since then patient has not been showing any improvement neurologically. Patient remains at high risk for further complications, deterioration and decline. . Code Status: No Code Plan PLAN: Legal decision maker: Patient is currently intubated on mechanical ventilation and not capacitated to make her own medical decisions, unsure if patient will regain capacity to make her own medical decisions.Patient has never completed a HCS form. She is still legally and according to [place] Statute her will act as her Health Care Proxy. Goals: Patient made DNR today by her . Patient`s will most likely progress to compassionate withdrawal from life support on June 08, 2017. Patients` will most likely transition patient to comfort care only through hospice services after compassionate withdrawal from life support. Telephone conversation with patients who intends to be here tomorrow at 0900hrs for tentative compassionate withdrawal from life support. Patient`s also requested hospice services after patient is compassionately withdrawn from life support. Patient`s sister also called and confirmed that she is flying from [place] today and intends to be here tomorrow to see her sister prior to compassionate withdrawal from life support. Family no longer wants to pursue aggressive treatment, they only desire comfort measures for their loved one Becky. CODE STATUS: DNR/DNI SYMPTOMS: * Shortness of breath: Multifactorial. Patient has a history of COPD. Most likely aspirated.Chest x-ray showed RML pneumonitis. Patient went into respiratory failure requiring intubation and placed on mechanical ventilation. Patient on Ceftriaxone for Haemophilus PNA. Currently on FIO2 70% with O2 saturation in the mid 90s. * Agitation: Patient has a history of schizophrenia and came in after an unwitnessed seizure. Patient on Keppra for seizures. Patient on Clozapine 400mg p o daily. Patient sedated with Propofol. Currently calm. * Altered mental status: Multifactorial. Patient has a history of seizures and schizophrenia. Patient`s mental status not improving. She is currently on Fentanyl 50mcg/hr. Palliative care will continue to follow the patient during hospital course as condition evolves, to assist patient/decision-maker with understanding of their medical conditions, weighing benefits/burdens of treatment options, for clarification of goals of treatment. Additionally will assist with any symptoms of palliative concern Dasha Muro Jun 08, 2017 12:01
[2017-06-08] MEDS: PROPOFOL 1000 MG/100 ML INJ 100 ML IV PRN (17:00)
[2017-06-08] MEDS: cefTRIAXone INJ 2,000 MG in SODIUM CHLORIDE 0.9% INJ 100 ML IV SCH (17:01)
[2017-06-08] MEDS: cloZAPine 100 MG TAB PO SCH (20:31)
[2017-06-09] VITALS (9 sets, daily range): BP systolic 102–118; BP diastolic 60–81; PULSE 66–88; RESP 17–18; TEMP 98.8–99.7; O2SAT 94–96
[2017-06-09] MEDS: PROPOFOL 1000 MG/100 ML INJ 100 ML IV PRN (04:13)
[2017-06-09] MEDS: FREE WATER G-TUBE SCH ×2 (06:00)
[2017-06-09] MEDS: LEVOTHYROXINE SODIUM 75 MCG TAB PO SCH (06:11)
[2017-06-09 06:57] LABS: HEMATOCRIT 27.8 % (35.0-46.0); MEAN CORPUSCULAR HEMOGLOBIN 31.2 PG (27.0-34.0); MEAN CORPUSCULAR HGB CONC 33.5 % (32.0-36.0); PLATELET COUNT 304 TH/MM3 (150-450); RED BLOOD COUNT 2.99 MIL/MM3 (4.00-5.30); RED CELL DISTRIBUTION WIDTH 14.1 % (11.6-17.2); REVIEW FLAG FINAL
[2017-06-09 07:12] LABS: BICARBONATE 40.8 MEQ/L (21.0-32.0); POTASSIUM 3.7 MEQ/L (3.5-5.1)
[2017-06-09] MEDS: CHLORHEXIDINE 0.12% (ORAL KIT) 15 ML CUP MT SCH (08:04)
[2017-06-09] MEDS: GABAPENTIN 100 MG CAP PO SCH (08:04)
[2017-06-09] MEDS: levETIRAcetam INJ 100 ML IV SCH (08:04)
[2017-06-09] MEDS: CHOLECALCIFEROL (VIT D3) 400 UNIT TAB PO SCH (08:04)
[2017-06-09] MEDS: FAMOTIDINE 20 MG TAB PO SCH (08:04)
[2017-06-09] MEDS: TRIFLUOPERAZINE 1 MG PO SCH (08:04)
[2017-06-09] MEDS: SODIUM CHLORIDE 0.9% FLUSH 10 ML FLUSH IV FLUSH SCH (08:05)
[2017-06-09] MEDS ORDERED: HYOSCYAMINE 0.5 MG/ML AMP IV PUSH ONE (11:30)
[2017-06-09] MEDS ORDERED: MIDAZOLAM HCL 5 MG/ML VIAL (1 ML) IV PUSH ONE ×2 (11:30→12:00)
[2017-06-09] MEDS ORDERED: MORPHINE SULFATE 8 MG/ML INJ IV PUSH ONE (11:30)
--- NOTE | 2017-06-09 11:51 | HHI.HCPN ---
Reason for visit a. To assist with evaluation and management of symptoms including:shortness of breath, altered mental status. b. To assist medical decision maker(s) with: better understanding of current medical conditions; weighing benefits/burdens of medical treatment options; making medical treatment decisions. Subjective/Interval History Patient seen and examined in ICU. Patients` family at bedside during visit. Patient is intubated, sedated and on mechanical ventilation. Propofol infusing at 20mcg/kg/min. Currently calm. FIO2 70% with O2 saturation in the mid 90s. No eye opening noted. Slight withdrawal to noxious stimulation with bilateral lower extremities. Patient is not showing any signs of discomfort or distress. Patient no showing signs of pain, fentanyl infusing at 50mcg/hr. Temperature 99.7 degrees F orally, HR 70s, SBP low 100s. Laboratory workup today revealing WBC 3.0, Hgb 9.3, Hct 27.8, plt count 304, sodium 150, potassium 3.7, BUN/Creat 16/0.44, random glucose 123. No recent imaging. Meeting with patient`s Neal Hussein, patient`s sister Mervat Martin, and patient`s brother Pineda. Updated on patient`s medical status, reviewed treatment course during her hospitalization and diagnostic tests results. Patient`s family reiterated that given patient`s medical history and what she has been through due to her mental illness (paranoid schizophrenia),they would not like her to continue living with the burden of her illness and that she had expressed in the past that she would never want to live with a tracheostomy and feeding tube in a assisted. Patient`s expressed that when patient helped care for her mother in law who was sick at the time, she repeatedly told her that she would not want to live by artificial means including tracheostomy and having to be fed through a PEG tube and that she would not want to live in a assisted. Patient`s with the support of patient`s sister, and brother as well as patient`s mother have decided to stop pursuing aggressive treatment and requested compassionate withdrawal from life support. Explained to family more about compassionate withdrawal from care. Family only want patient to be comfortable and have requested hospice services at time of compassionate withdrawal from life support. Third Mate Andy and Third Mate Rush with patient`s family for support. Case discussed with bedside RN and notified of patient`s family decision to compassionately withdraw from life support. Dr. Wall also updated on family` s decision. Family/friend interactions Meeting with patient`s Neal Hussein, patient`s sister Mervat Martin, and patient`s brother Pineda . Advance Directives Living Will: Never completed Health Care Surrogate: Never completed Durable Power of Electrophysiology Nurse Practitioner: Never completed Advance Directive Specifics Health Care Surrogate(s): Patient`s health care proxy is her Neal Hussein [phone] . Objective Vital Signs Date Time Temp Pulse Resp B/P (MAP) Pulse Ox O2 Delivery O2 Flow Rate FiO2 06/09/17 10:00 73 06/09/17 09:27 94 70 06/09/17 08:00 75 06/09/17 08:00 70 06/09/17 08:00 98.8 74 18 118/81 (93) 96 06/09/17 07:00 96 Mechanical Ventilator 70 06/09/17 06:00 76 06/09/17 04:00 95 70 06/09/17 04:00 76 06/09/17 04:00 99.7 76 18 107/60 (76) 96 06/09/17 04:00 70 06/09/17 02:00 84 06/09/17 01:30 96 70 06/09/17 00:00 88 06/09/17 00:00 99.6 88 17 102/63 (76) 94 06/09/17 00:00 70 06/08/17 22:00 90 06/08/17 20:37 95 70 06/08/17 20:00 92 06/08/17 20:00 70 06/08/17 20:00 99.8 92 16 109/94 (99) 92 06/08/17 19:00 92 Mechanical Ventilator 70 06/08/17 18:00 94 06/08/17 17:05 96 70 06/08/17 16:00 70 06/08/17 16:00 76 06/08/17 16:00 99.2 76 16 122/72 (89) 95 06/08/17 14:00 82 06/08/17 12:00 98.8 76 16 125/69 (87) 96 06/08/17 12:00 70 06/08/17 12:00 76 Intake & Output 12/14/17 12/14/17 07:00 19:00 Intake Total 1348 ml Output Total 650 ml Balance 698 ml IV Total 482 ml Tube Feeding 466 ml Other 400 ml Output Urine Total 650 ml # Bowel Movements 0 Physical Exam CONSTITUTIONAL/GENERAL: This is an adequately nourished patient, in no apparent distress with no signs of pain or discomfort. TUBES/LINES/DRAINS: PIV, ETT, OGT, SCD, FC SKIN: No jaundice, rashes, or lesions. Ecchymoses on upper extremities. No wounds seen anteriorly. Skin temperature appropriate. Not diaphoretic. HEAD: Atraumatic. Normocephalic. EYES: Pupils equal and round and reactive. Extraocular motions intact. No scleral icterus. No injection or drainage. Fundi not examined. ENT: Nose without bleeding or purulent drainage. Copious oral secretions. NECK: Trachea midline. Supple, nontender. CARDIOVASCULAR: Regular rate and rhythm without murmurs, gallops, or rubs. No JVD. Peripheral pulses symmetric. RESPIRATORY/CHEST: Symmetric, unlabored respirations. Clear to auscultation. Breath sounds equal bilaterally. No wheezes, rales, or rhonchi. FIO2 increased to 70% GASTROINTESTINAL: Abdomen soft, non-tender, nondistended. No hepato-splenomegaly , or palpable masses. No guarding. Bowel sounds present. GENITOURINARY: Without palpable bladder distension. Andrade catheter in place. MUSCULOSKELETAL: Extremities without clubbing, cyanosis, or edema. No joint tenderness or effusion noted. No calf tenderness. No mottling or clubbing. NEUROLOGICAL: Intubated, sedated on mechanical ventilation. Slightly withdraws from noxious stimulation with BLE, no response noted with BUE PSYCHIATRIC: Unable to assess due to clinical condition . Diagnostic Tests Laboratory Laboratory Tests Test 06/07/17 06:35 06/08/17 05:23 06/08/17 20:10 06/09/17 06:13 White Blood Count 3.5 TH/MM3 (4.0-11.0) 3.3 TH/MM3 (4.0-11.0) 3.0 TH/MM3 (4.0-11.0) Red Blood Count 3.08 MIL/MM3 (4.00-5.30) 3.12 MIL/MM3 (4.00-5.30) 2.99 MIL/MM3 (4.00-5.30) Hemoglobin 9.7 GM/DL (11.6-15.3) 9.8 GM/DL (11.6-15.3) 9.3 GM/DL (11.6-15.3) Hematocrit 28.6 % (35.0-46.0) 28.9 % (35.0-46.0) 27.8 % (35.0-46.0) Mean Corpuscular Volume 92.6 FL (80.0-100.0) 92.7 FL (80.0-100.0) 93.0 FL (80.0-100.0) Mean Corpuscular Hemoglobin 31.3 PG (27.0-34.0) 31.4 PG (27.0-34.0) 31.2 PG (27.0-34.0) Mean Corpuscular Hemoglobin Concent 33.8 % (32.0-36.0) 33.9 % (32.0-36.0) 33.5 % (32.0-36.0) Red Cell Distribution Width 14.5 % (11.6-17.2) 14.0 % (11.6-17.2) 14.1 % (11.6-17.2) Platelet Count 244 TH/MM3 (150-450) 274 TH/MM3 (150-450) 304 TH/MM3 (150-450) Mean Platelet Volume 7.9 FL (7.0-11.0) 8.0 FL (7.0-11.0) 7.7 FL (7.0-11.0) Blood Urea Nitrogen 13 MG/DL (7-18) 15 MG/DL (7-18) 16 MG/DL (7-18) Creatinine 0.40 MG/DL (0.50-1.00) 0.45 MG/DL (0.50-1.00) 0.44 MG/DL (0.50-1.00) Random Glucose 132 MG/DL (74-106) 126 MG/DL (74-106) 123 MG/DL (74-106) Calcium Level 8.1 MG/DL (8.5-10.1) 8.2 MG/DL (8.5-10.1) 8.2 MG/DL (8.5-10.1) Sodium Level 151 MEQ/L (136-145) 149 MEQ/L (136-145) 150 MEQ/L (136-145) Potassium Level 3.6 MEQ/L (3.5-5.1) 3.5 MEQ/L (3.5-5.1) 3.6 MEQ/L (3.5-5.1) 3.7 MEQ/L (3.5-5.1) Chloride Level 112 MEQ/L (98-107) 109 MEQ/L (98-107) 107 MEQ/L (98-107) Carbon Dioxide Level 35.4 MEQ/L (21.0-32.0) 39.0 MEQ/L (21.0-32.0) 40.8 MEQ/L (21.0-32.0) Anion Gap 4 MEQ/L (5-15) 1 MEQ/L (5-15) 2 MEQ/L (5-15) Estimat Glomerular Filtration Rate 163 ML/MIN (>89) 143 ML/MIN (>89) 146 ML/MIN (>89) Rapid Plasma Reagin NON-REACTIVE (NON-REACTVE) Result Diagram: 06/09/17 0613 06/09/17 0613 Procedures 06/01/17-intubated 06/01/17-diagnostic lumbar puncture Assessment and Plan Disease Oriented Problem List: (1) Acute encephalopathy (2) Hypoxia (3) Seizure disorder (4) Schizophrenia (5) Hypothyroidism Symptom Scale: (1) Shortness of breath 0-10 Scale: Unable to quantify Comment: Multifactorial. Currently intubated on mechanical ventilation . (2) Altered mental status 0-10 Scale: Unable to quantify Comment: Multifactorial. Hx of seizures, schizophrenia. . Pertinent Non-Medical Issues Psychosocial:Patient was born in [place] and moved to [place] at the age of 12. Patient completed high school and took a few college credits and then dropped out of college. Patient moved to [place] after he her second . Patient has been twice but has been to her second for 32 years. Patient is still legally to her second but she left him in August of 2015 when she voluntarily checked herself into the [facility] ([facility]) in . She was then discharged to [facility] on May,. Patient enjoys listening to the radio. Spiritual:Patient is tenriism and according to her and mother will benefits from hands and dial inspector visits. Legal:Patient does not have advance directives Ethical issues impacting care: None identified at this time Important Contacts - Health care proxy- Jovita De Jesus [phone] Mother-Carroll Chaudhari [phone] (home); [phone] (cell) Sister-Mario Crowell [phone] Brother-Bebo Paniagua [phone] . Prognosis Mrs Hussein is a 61 years old female with a past medical history of seizures, anxiety, schizophrenia, COPD, and hypothyroidism. Patient is a resident at [facility]. Patient was brought into the ER via EMS on after she was found on the floor at the assisted postictal and incontinent of urine. Clinical course complicated with agitation, respiratory failure and encephalopathy. Patient intubated and placed on mechanical ventilation on 06/01/17. Since then patient has not been showing any improvement neurologically. Patient remains at high risk for further complications, deterioration and decline. . Code Status: No Code Plan PLAN: Legal decision maker: Patient is currently intubated on mechanical ventilation and not capacitated to make her own medical decisions, unsure if patient will regain capacity to make her own medical decisions.Patient has never completed a HCS form. She is still legally and according to [place] Statute her will act as her Health Care Proxy. Goals: Patient made DNR today by her . Patient`s will most likely progress to compassionate withdrawal from life support on June 08, 2017. Patients` will most likely transition patient to comfort care only through hospice services after compassionate withdrawal from life support. Meeting with patient`s Neal Hussein, patient`s sister Mervat Martin, and patient`s brother Pineda. Updated on patient`s medical status, reviewed treatment course during her hospitalization and diagnostic tests results. Patient`s family reiterated that given patient`s medical history and what she has been through due to her mental illness (paranoid schizophrenia),they would not like her to continue living with the burden of her illness and that she had expressed in the past that she would never want to live with a tracheostomy and feeding tube in a assisted. Patient`s expressed that when patient helped care for her mother in law who was sick at the time, she repeatedly told her that she would not want to live by artificial means including tracheostomy and having to be fed through a PEG tube and that she would not want to live in a assisted. Patient`s with the support of patient`s sister, and brother as well as patient`s mother have decided to stop pursuing aggressive treatment and requested compassionate withdrawal from life support. Family only want patient to be comfortable and have requested hospice services at time of compassionate withdrawal from life support. CODE STATUS: DNR/DNI SYMPTOMS: * Shortness of breath: Multifactorial. Patient has a history of COPD. Most likely aspirated.Chest x-ray showed RML pneumonitis. Patient went into respiratory failure requiring intubation and placed on mechanical ventilation. Patient on Ceftriaxone for Haemophilus PNA. Currently on FIO2 70% with O2 saturation in the mid 90s. Patient to be compassionately withdrawn from life support. * Agitation: Patient has a history of schizophrenia and came in after an unwitnessed seizure. Patient on Keppra for seizures. Patient on Clozapine 400mg p o daily. Patient sedated with Propofol. Currently calm. PRN Midazolam and Haldol prn * Altered mental status: Multifactorial. Patient has a history of seizures and schizophrenia. Patient`s mental status not improving. She is currently on Fentanyl 50mcg/hr. PRN Midazolam and Haldol prn Palliative care will continue to follow the patient during hospital course as condition evolves, to assist patient/decision-maker with understanding of their medical conditions, weighing benefits/burdens of treatment options, for clarification of goals of treatment. Additionally will assist with any symptoms of palliative concern Dasha Muro Jun 09, 2017 11:51
[2017-06-09] MEDS ORDERED: FUROSEMIDE 20 MG/2 ML VIAL IV PUSH PRN (12:00)
[2017-06-09] MEDS ORDERED: MORPHINE SULFATE 4 MG/ML INJ IV PUSH ONE (12:00)
[2017-06-09] MEDS ORDERED: ACETAMINOPHEN 650 MG SUPP RECTAL PRN (12:00)
[2017-06-09] MEDS ORDERED: BISACODYL 10 MG SUPP RECTAL PRN (12:00)
[2017-06-09] MEDS ORDERED: HYOSCYAMINE 0.5 MG/ML AMP IV PUSH PRN (12:30)
[2017-06-09] MEDS ORDERED: MORPHINE SULFATE 4 MG/ML INJ IV PUSH PRN (12:30)
[2017-06-09] MEDS ORDERED: MORPHINE SULFATE 8 MG/ML INJ IV PUSH PRN (12:30)
[2017-06-09] MEDS ORDERED: MIDAZOLAM HCL 2 MG/2 ML VIAL IV PUSH PRN (12:30)
[2017-06-09] MEDS ORDERED: MIDAZOLAM HCL 2 MG/2 ML VIAL IV PUSH SCH (14:00)
--- NOTE | 2017-06-09 15:21 | DEATH SUM ---
Summary Demographics Date Pronounced : Jun 09, 2017 Time Of : 1243 Pronounced By: Letha Portillo RN and Christy Marin RN Preliminary Cause of : Other (Respiratory Failure) Devaughn Wall MD Jun 09, 2017 15:21
--- NOTE | 2017-06-09 15:25 | HHI.DS ---
Discharge Summary Admission Date May 31, 2017 at 01:23 Discharge Date: Jun 09, 2017 Admitting Diagnosis breakthrough seizure, hypoxia, acute sinusitis (1) Breakthrough seizure ICD Code: G40.919 - Epilepsy, unspecified, intractable, without status epilepticus Status: Acute (2) Acute respiratory failure with hypoxia ICD Code: J96.01 - Acute respiratory failure with hypoxia Diagnosis: Principal Status: Acute (3) Schizophrenia ICD Code: F20.9 - Schizophrenia, unspecified Status: Acute (4) Encephalopathy acute ICD Code: G93.40 - Encephalopathy, unspecified Diagnosis: Principal Status: Acute Procedures Intubation and mechanical ventilation. Brief History History from ER communication, and review of medical records. Patient herself is not given any history at all. She is mostly slightly pain although easily arousable to verbal stimuli. She is moving around in her bed and trying to pull off the blood pressure cuff/oxygen at times. Per ER notes, patient was brought in by [facility] for evaluation after fall and possible seizure. Patient was found postictal at [facility]. She was incontinent of urine. She was sleeping mostly upon initial arrival to ER. O2 sat were 86% on room air. Upon my arrival, patient is noncommunicative verbally but is moving around. She is on Ventimask 35% FiO2 saturating at 96%. History is limited. Review of medical records reveals the patient has history of schizophrenia and seizure disorder. She was found to have rectal temperature of 101. CBC/BMP: 06/09/17 0613 06/09/17 0613 Significant Findings Laboratory Tests Test 06/07/17 06:35 06/08/17 05:23 06/08/17 20:10 06/09/17 06:13 White Blood Count 3.5 TH/MM3 (4.0-11.0) 3.3 TH/MM3 (4.0-11.0) 3.0 TH/MM3 (4.0-11.0) Red Blood Count 3.08 MIL/MM3 (4.00-5.30) 3.12 MIL/MM3 (4.00-5.30) 2.99 MIL/MM3 (4.00-5.30) Hemoglobin 9.7 GM/DL (11.6-15.3) 9.8 GM/DL (11.6-15.3) 9.3 GM/DL (11.6-15.3) Hematocrit 28.6 % (35.0-46.0) 28.9 % (35.0-46.0) 27.8 % (35.0-46.0) Creatinine 0.40 MG/DL (0.50-1.00) 0.45 MG/DL (0.50-1.00) 0.44 MG/DL (0.50-1.00) Random Glucose 132 MG/DL (74-106) 126 MG/DL (74-106) 123 MG/DL (74-106) Calcium Level 8.1 MG/DL (8.5-10.1) 8.2 MG/DL (8.5-10.1) 8.2 MG/DL (8.5-10.1) Sodium Level 151 MEQ/L (136-145) 149 MEQ/L (136-145) 150 MEQ/L (136-145) Chloride Level 112 MEQ/L (98-107) 109 MEQ/L (98-107) Carbon Dioxide Level 35.4 MEQ/L (21.0-32.0) 39.0 MEQ/L (21.0-32.0) 40.8 MEQ/L (21.0-32.0) Anion Gap 4 MEQ/L (5-15) 1 MEQ/L (5-15) 2 MEQ/L (5-15) Imaging CT Head. PE at Discharge GENERAL: Patient is confused, agitated, in restraints. Does not follow commands. CARDIOVASCULAR: Normal rate and regular rhythm without murmurs, gallops, or rubs. RESPIRATORY: Some upper airway coarse sounds. Otherwise Breath sounds equal and clear to auscultation bilaterally. GASTROINTESTINAL: Abdomen soft, non-tender, non-distended. Normal active bowel sounds MUSCULOSKELETAL: Extremities without cyanosis, or edema. NEURO: Confused. Move all extremities spontaneously. Does not follow commands. PSYCH: Agitated. Transfer Summary Deteriorating neurological function associated with schizoaffective disorder. COPD, end-stage, ventilator dependent. Family elected for withdrawal of artificial support rather than tracheostomy and PEG insertion. Extubated. Pronounced at 1243 hours on 06/09/17. Hospital Course 61 y/o woman found down after a probable seizure at a local snf. Remains obtunded. Gas exchange acceptable but airway control marginal. Neurology Service requests MRI which will require intubation and mechanical ventilation for airway control. EEG this morning with no seizures. 06/02: CSF could be viral [employer] process, bacterial unlikely. High airway pressures after aspiration pneumonitis (aspirated prior to intubation). Remains largely obtunded. 06/03 SBT today with attempt to wean and extubate failed due to rapid shallow breathing. No other events overnight 06/04: still encephalopathic. rapid breathing persists. discussed with family member today who states she had a very poor quality of life in the long-term she is in, and they are not sure how much aggressive treatment she would want if they knew her prognosis was poor. 06/05: sodium rising, mental status still poor. tachypneic overnight. intermittently agitated. 06/06: Poor neurological progress. 06/07: Remains encephalopathic, orally intubated on mechanical ventilation. Family is deciding regarding transition to comfort measures. Palliative care following. Tolerating tube feeds. 06/08: Remains encephalopathic, no improvement in neurologic status. Remains orally intubated on mechanical ventilation. Family planning to eventually transition to comfort measures following their arrival. Pt Condition on Discharge: Deteriorating Discharge Instructions Additional Information Time to complete 35 minutes. Devaughn Wall MD Jun 09, 2017 15:25
[2017-06-09] MEDS ORDERED: MORPHINE SULFATE 4 MG/ML INJ IV PUSH SCH (16:00)
[2017-06-09] MEDS ORDERED: levETIRAcetam INJ 100 ML IV SCH (21:00)
== END 2017-06-09 15:27 | disposition expired | DRG 100 ==
LOC: NEPE 23:38 → NEDA 05-31 01:23 → N03A 05-31 05:38
PROVIDERS: ADMIT Surgery Surgical Critical Care; ATTEND Surgery Surgical Critical Care
PROC: 5A1955Z Respiratory Ventilation, Greater than 96 Consecutive Hours (ICD-10-PCS; principal; 2017-06-01)
PROC: 0DH67UZ Insertion of Feeding Device into Stomach, Via Natural or Artificial Opening (ICD-10-PCS; 2017-06-01)
PROC: 0BH17EZ Insertion of Endotracheal Airway into Trachea, Via Natural or Artificial Opening (ICD-10-PCS; 2017-06-01)
PROC: 009U3ZX Drainage of Spinal Canal, Percutaneous Approach, Diagnostic (ICD-10-PCS; 2017-06-01)
PROC: 0T9B70Z Drainage of Bladder with Drainage Device, Via Natural or Artificial Opening (ICD-10-PCS; 2017-06-01)
DX: G40.919 Epilepsy, unspecified, intractable, without status epilepticus (principal); J14 Pneumonia due to Hemophilus influenzae; J69.0 Pneumonitis due to inhalation of food and vomit; J96.01 Acute respiratory failure with hypoxia; J96.02 Acute respiratory failure with hypercapnia; G93.40 Encephalopathy, unspecified; Z99.11 Dependence on respirator [ventilator] status; F20.0 Paranoid schizophrenia; J44.0 Chronic obstructive pulmonary disease with (acute) lower respiratory infection; Q01.9 Encephalocele, unspecified; F32.9 Major depressive disorder, single episode, unspecified; F41.9 Anxiety disorder, unspecified; J01.30 Acute sphenoidal sinusitis, unspecified; Z72.0 Tobacco use; M19.90 Unspecified osteoarthritis, unspecified site; R32 Unspecified urinary incontinence; E03.9 Hypothyroidism, unspecified; Z78.1 Physical restraint status; R45.1 Restlessness and agitation; Z51.5 Encounter for palliative care; Z66 Do not resuscitate; Z80.3 Family history of malignant neoplasm of breast; Z80.0 Family history of malignant neoplasm of digestive organs; Z82.62 Family history of osteoporosis; Z83.6 Family history of other diseases of the respiratory system; Z90.710 Acquired absence of both cervix and uterus
CPT/HCPCS: 31500; 36600; 70450; 70551; 71010; 72125; 76937; 80048; 80053; 80202; 80307; 81001; 82565; 82805; 82945; 83605; 83735; 84100; 84132; 84155; 84157; 84443; 85007; 85025; 85027; 85610; 86403; 86592; 87040; 87070; 87077; 87184; 87186; 87205; 87529; 87641; 89051; 93005; 94002; 94003; 94640; 94664; 95819; 96360; J0133; J0696; J1630; J1650; J1953; J1980; J2060; J2250; J2270; J3010; J3370; J3480; J7030; J7050